=== PATIENT | female | born 1970 | race Caucasian/White ===

== ENCOUNTER → 2021-05-22 | Outpatient (CLI) | payer MEDICARE ==
[~2021-05-22] MED LIST: AZIT-21 PO; BSP5T PO; FLUO20CA25 PO; LAMO25TA4 PO; LEVO500T69 PO; NF-ESOM40C PO
== END ==
LOC: CARD 12:00
PROVIDERS: ATTEND Pediatrics
DX: R00.0 Tachycardia, unspecified (principal)
CPT/HCPCS: 93225; 93226

== ENCOUNTER 2021-07-21 10:05 | Observation (INO) | payer MEDICARE ==
[~2021-07-21] VITALS: Ht 165.1 cm; Wt 86.9 kg
[~2021-07-21 10:05] MED LIST changes: -ACHD5005 PO; -FLDR.1T PO; -GBPN600T PO; -NICO-685 TD; -ONDA-105 PO; -PARO40TA PO; -POTA10CA43 PO; -PROP80CA4 PO; -TIZA-186 PO; -TRAZ150T72 PO
--- NOTE | 2021-07-21 10:37 | ED General ---
General Chief Complaint: Head/Cervical Problems Stated Complaint: AMS Nursing Triage Note: ARRIVED VIA TO ER FROM CT. PT WAS SENT TO CT FROM [facility] DUE FREQUENT HEADACHES AND FELL COMING TO THE HOSPITAL. UPON CT ARRIVAL CT REPORTS PT CONFUSED ET STARTING SWEATING. CT COMPLETED. PT A/O X2-3 BUT AT TIMES DOES NOT MAKE SENSE. Source of Information: Patient Exam Limitations: No Limitations History of Present Illness Date Seen by Provider: Jul 21, 2021 Time Seen by Provider: 10:12 Initial Comments Patient is a 50-year-old female who presents to the emergency department from CAT scan. Patient was sent over for an outpatient CAT scan of the head reportedly due to frequent headaches and falls over recent weeks. Patient apparently states that she started feeling syncopal on arrival to the hospital. She states that she actually passed out. Reportedly very diaphoretic, she is diaphoretic on my initial evaluation. She is awake alert, oriented. She states that her speech is not quite right. She does seem to have somewhat of a slur. She is edentulous. She denies any recent fevers or chills. She states her headache is most of the time on the left side of her head. She states she has felt like she has had problems with balance and dizziness in recent weeks. She was recently started on a new medication for her mental health issues. She states she took her self off of it due to concerns about side effects. Reportedly the CT of the brain was done prior to arrival here in the ED. She denies any numbness, weakness or tingling in any of her extremities. She does have a mild headache and some back pain. She states her back pain/neck pain is chronic. No problems with urination, bowels. She is Covid vaccinated in November of this year. History of anemia. All other review of systems reviewed and negative except as stated. Timing/Duration: Getting Worse Severity: Moderate Associated Systoms: Headaches, Malaise, Syncope, Weakness Allergies and Home Medications Allergies Coded Allergies: No Known Drug Allergies (Unverified , 06/26/14) Patient Home Medication List Home Medication List Reviewed: Yes Esomeprazole Mag Trihydrate (Nexium) 40 Mg Capsule.dr, 40 MG PO DAILY, (Reported) Entered as Reported by: GERMAN CM on 06/25/14 6202 Last Action: Reviewed Gabapentin (Gabapentin) 600 Mg Tablet, 600 MG PO TID, (Reported) Entered as Reported by: BEAU ARCHER on 07/21/211817 Last Action: Reviewed Hydrocodone/Acetaminophen (Hydrocodone-Acetamin 5-325 mg) 1 Each Tablet, 1 TAB PO TID PRN for PAIN-MODERATE (5-7), (Reported) Entered as Reported by: BEAU ARCHER on 07/21/211817 Last Action: Continued Nicotine (Nicotine Patch) 1 Each Patch.td24, 21 MG TD DAILY, (Reported) Entered as Reported by: BEAU ARCHER on 07/21/211817 Last Action: Continued Ondansetron HCl (Ondansetron HCl) 4 Mg Tablet, 4 MG PO TID PRN for NAUSEA/VOMITING, (Reported) Entered as Reported by: BEAU ARCHER on 07/21/211817 Last Action: Reviewed Paroxetine HCl (Paxil) 40 Mg Tablet, 40 MG PO DAILY, (Reported) Entered as Reported by: BEAU ARCHER on 07/21/211817 Last Action: Reviewed Propranolol HCl (Propranolol HCl ER) 80 Mg Cap.sa.24h, 80 MG PO DAILY, (Reported) Entered as Reported by: BEAU ARCHER on 07/21/211817 Last Action: Reviewed Tizanidine HCl (Tizanidine HCl) 4 Mg Tablet, 4 MG PO TID, (Reported) Entered as Reported by: BEAU ARCHER on 07/21/211817 Last Action: Reviewed Trazodone HCl (Trazodone HCl) 150 Mg Tablet, 150 MG PO HS, (Reported) Entered as Reported by: BEAU ARCHER on 07/21/211817 Last Action: Continued Discontinued Medications Azithromycin (Zithromax Tab) 250 Mg Tab, 0 PO Z-ISAAC Discontinued Reason: No Longer Taking Prescribed by: CHERYL WHITNEY on 06/25/14 1448 Last Action: Discontinued Buspirone Hcl (Buspar) 5 Mg Tablet, Unknown Dose PO TID, (Reported) Discontinued Reason: No Longer Taking Entered as Reported by: MIKE MUNIZ on 06/26/14 1652 Last Action: Discontinued Fluoxetine Hcl (Fluoxetine Hcl) 20 Mg Capsule, 1 EACH PO DAILY, (Reported) Discontinued Reason: No Longer Taking Entered as Reported by: GERMAN CM on 06/25/141408 Last Action: Discontinued Lamotrigine (Lamictal) 25 Mg Tab.disper, 20 MG PO TID, (Reported) Discontinued Reason: No Longer Taking Entered as Reported by: GERMAN CM on 06/25/141408 Last Action: Discontinued Levofloxacin (Levaquin 500 Mg) 500 Mg Tab, 1 EACH PO DAILY Discontinued Reason: No Longer Taking Prescribed by: STACEY WEBSTER on 06/26/141955 Last Action: Discontinued Review of Systems Review of Systems Constitutional: see HPI EENTM: no symptoms reported Respiratory: no symptoms reported Cardiovascular: no symptoms reported Gastrointestinal: no symptoms reported Genitourinary: no symptoms reported : No Musculoskeletal: back pain, neck pain Skin: no symptoms reported Psychiatric/Neurological: Anxiety, Headache All Other Systems Reviewed Negative Unless Noted: Yes Past Dlqpfon-Ybxevr-Femybr Hx Patient Social History Smoking Status: Current Everyday Smoker Substance use?: No Alcohol Use?: No Immunizations Up To Date Second COVID19 Vaccination James: 11/30 COVID19 Vaccine Radiation Protection Specialist: PARRISH Seasonal Allergies Seasonal Allergies: Yes Past Medical History Section, Ear Surgery, 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 oz. 79.314504qe; 30.00 BMI Method:Stated General Appearance: No Apparent Distress, WD/WN Eyes: Bilateral Eye Normal Inspection, Bilateral Eye PERRL, Bilateral Eye EOMI, Bilateral Eye Conjunctivae Pale HEENT: PERRL/EOMI, Pharynx Normal, Other (pale oral mucosa; edentulous) Neck: Normal Inspection Respiratory: Lungs Clear, Normal Breath Sounds, No Accessory Muscle Use, No Respiratory Distress Cardiovascular: Regular Rate, Rhythm, Normal Peripheral Pulses Gastrointestinal: Normal Bowel Sounds, Non Tender, Soft Extremity: Normal Capillary Refill, Normal Inspection, Non Tender, No Calf Tenderness Neurologic/Psychiatric: Alert, Oriented x3, No Motor/Sensory Deficits, Normal Mood/Affect Skin: Diaphoresis, Pallor, Other (multiple healed scars (patient states from old staph infections) to bilateral upper extremities left greater than right) Focused Exam Lactate Level 07/21/21 13:45: Lactic Acid Level 1.08 Lactic Acid Level Laboratory Tests Test 07/21/21 13:45 Lactic Acid Level 1.08 MMOL/L (0.50-2.00) Progress/Results/Core Measures Suspected Sepsis SIRS Temperature: Pulse: 63 Respiratory Rate: 16 Laboratory Tests 07/21/21 10:15: White Blood Count 11.8H Blood Pressure 106 /87 Mean: 93 07/21/21 13:45: Lactic Acid Level 1.08 Laboratory Tests 07/21/21 10:15: Creatinine 1.59H, Platelet Count 352, Total Bilirubin 0.3 Results/Orders Lab Results Laboratory Tests Test 07/21/21 10:10 07/21/21 10:15 07/21/21 12:40 07/21/21 13:45 Range/Units Glucometer 111 H 70-110 MG/DL White Blood Count 11.8 H 4.3-11.0 10^3/uL Red Blood Count 4.02 3.80-5.11 10^6/uL Hemoglobin 12.2 11.5-16.0 g/dL Hematocrit 37 35-52 % Mean Corpuscular Volume 92 80-99 fL Mean Corpuscular Hemoglobin 30 25-34 pg Mean Corpuscular Hemoglobin Concent 33 32-36 g/dL Red Cell Distribution Width 13.4 10.0-14.5 % Platelet Count 352 130-400 10^3/uL Mean Platelet Volume 10.0 9.0-12.2 fL Immature Granulocyte % (Auto) 0 % Neutrophils (%) (Auto) 79 H 42-75 % Lymphocytes (%) (Auto) 16 12-44 % Monocytes (%) (Auto) 4 0-12 % Eosinophils (%) (Auto) 1 0-10 % Basophils (%) (Auto) 0 0-10 % Neutrophils # (Auto) 9.2 H 1.8-7.8 10^3/uL Lymphocytes # (Auto) 1.9 1.0-4.0 10^3/uL Monocytes # (Auto) 0.5 0.0-1.0 10^3/uL Eosinophils # (Auto) 0.1 0.0-0.3 10^3/uL Basophils # (Auto) 0.0 0.0-0.1 10^3/uL Immature Granulocyte # (Auto) 0.1 0.0-0.1 10^3/uL Sodium Level 134 L 135-145 MMOL/L Potassium Level 3.4 L 3.6-5.0 MMOL/L Chloride Level 99 98-107 MMOL/L Carbon Dioxide Level 21 21-32 MMOL/L Anion Gap 14 5-14 MMOL/L Blood Urea Nitrogen 7 7-18 MG/DL Creatinine 1.59 H 0.60-1.30 MG/DL Estimat Glomerular Filtration Rate 34 BUN/Creatinine Ratio 4 Glucose Level 112 H 70-105 MG/DL Calcium Level 9.5 8.5-10.1 MG/DL Corrected Calcium 9.9 8.5-10.1 MG/DL Total Bilirubin 0.3 0.1-1.0 MG/DL Aspartate Amino Transf (AST/SGOT) 15 5-34 U/L Alanine Aminotransferase (ALT/SGPT) 15 0-55 U/L Alkaline Phosphatase 78 40-136 U/L Total Protein 6.8 6.4-8.2 GM/DL Albumin 3.5 3.2-4.5 GM/DL Salicylates Level < 5.0 L 5.0-20.0 MG/DL Acetaminophen Level 22 10-30 UG/ML Serum Alcohol < 10 <10 MG/DL Urine Opiates Screen NEGATIVE NEGATIVE Urine Oxycodone Screen NEGATIVE NEGATIVE Urine Methadone Screen NEGATIVE NEGATIVE Urine Propoxyphene Screen NEGATIVE NEGATIVE Urine Barbiturates Screen NEGATIVE NEGATIVE Ur Tricyclic Antidepressants Screen NEGATIVE NEGATIVE Urine Phencyclidine Screen NEGATIVE NEGATIVE Urine Amphetamines Screen NEGATIVE NEGATIVE Urine Methamphetamines Screen NEGATIVE NEGATIVE Urine Benzodiazepines Screen POSITIVE H NEGATIVE Urine Cocaine Screen NEGATIVE NEGATIVE Urine Cannabinoids Screen NEGATIVE NEGATIVE Lactic Acid Level 1.08 0.50-2.00 MMOL/L My Orders Orders - JOY SAN MD Ed Iv/Invasive Line Start (07/21/21 10:34) Cbc With Automated Diff (07/21/21 10:34) Comprehensive Metabolic Panel (07/21/21 10:34) Ua Culture If Indicated (07/21/21 10:34) Alcohol (07/21/21 10:34) Salicylate (07/21/21 10:34) Acetaminophen (07/21/21 10:34) Ns Iv 1000 Ml (Sodium Chloride 0.9%) (07/21/21 10:45) Ed Iv/Invasive Line Start (07/21/21 11:13) Ns Iv 1000 Ml (Sodium Chloride 0.9%) (07/21/21 11:15) Hydrocodone/Apap 5/325 Tablet (Lortab 5 (07/21/21 12:30) Ns Iv 1000 Ml (Sodium Chloride 0.9%) (07/21/21 12:30) Drug Screen Stat (Urine) (07/21/21 12:40) Lactic Acid Analyzer (07/21/21 13:20) Chest 1 View, Ap/Pa Only (07/21/21 13:20) Medications Given in ED Vital Signs/I&O 07/21/21 07/21/21 07/21/21 10:05 12:56 14:16 Temp 36.3 Pulse 63 62 65 Resp 16 B/P (MAP) 106/87 (93) 85/54 (64) 86/50 (62) 73/43 (53) Pulse Ox 96 O2 Delivery Room Air Capillary Refill : Less Than 3 Seconds Blood Pressure Mean: 93 Point of Care Testing Finger Stick Blood Glucose: 111 Progress Note #1: Time: 11:16 Progress Note Notified by ED nurse, Sahara that the patient's blood pressure continues to be low in the 80s systolic. I was able to review the CT read per radiology on her head CT. No acute intracranial process was identified. Patient is not anemic at this time, chemistry looks normal. She does have a marginally elevated acetaminophen level at 22 otherwise alcohol and salicylates are negative. We are going to go ahead and give her a second liter of IV fluids. Progress Note #2: Time: 12:23 Progress Note Blood pressure is much better after first liter of fluids. I am going to go ahead and give her a second as her renal function is quite depressed today indicating potentially some volume depletion. She has not produced urine yet but states that she thinks she can now. We will give her some hydrocodone as she says she takes that for her chronic pain. Cannot give her Toradol secondary to the renal function. No evidence of an infectious process at this point. Anticipate after the second liter that we can likely send her home to follow-up with [facility]. Progress Note #3: Time: 13:20 Progress Note discussed with Dr aguilar who states that the patient is very compliant with her therapies. She does reiterate that she had recently started her on Rexulti but the patient could not tolerate the side effects and therefore she quit taking it about 2 weeks ago. She tells me that normally on visits to the clinic her heart rate is in the 90s with blood pressures in the 120s. We reviewed prescriptions for benzodiazepines. She had a prescription in November for some Xanax, 8 tablets. The patient states that she does not have any currently and has not taken any. She also tells me that she takes her daily propranolol as prescribed and has not taken any extra. In January of this year her creatinine was 1.19 with a GFR of [address] Aguilar. She is quite concerned about her ability to care for herself and they have been trying to get her some home health recently. She is quite "simple". Will add a chest x-ray as well as a lactic acid. As the patient is laying on her right side on her right arm her systolic blood pressure is 116. Plan to finish these fluids and then stand her and repeat blood pressure. Progress Note #4: Time: 14:17 Progress Note Patient has received 2L of IVF, standing BP is still 73/43. Gets very symptommatic, sweaty, pale and weak. Will call Dr Sullivan for admit. ECG Initial ECG Impression Date: Jul 21, 2021 Initial ECG Impression Time: 10:07 Initial ECG Rate: 64 Initial ECG Rhythm: Normal Sinus Initial ECG Intervals NE 142 QRS 85 QTc 512 Initial ECG Impression: Normal Diagnostic Imaging Diagonstic Imaging: CT Comments [facility] [place], [place] NAME: MIAH HERNANDEZ [facility] REC#: [id number] PT STATUS: REG CLI : 1970 PHYSICIAN: CATRACHITA AGUILAR DO ADMIT DATE: 07/21/21/RAD Draft Date of Exam:07/21/21 CT HEAD WO PROCEDURE: CT head without contrast. TECHNIQUE: Multiple contiguous axial images were obtained through the brain without the use of intravenous contrast. Auto Exposure Controls were utilized during the CT exam to meet ALARA standards for radiation dose reduction. INDICATION: Headache and dizziness. No prior studies are available for comparison. FINDINGS: Ventricles and sulci are within normal limits. No sulcal effacement or midline shift is identified. No acute intra-axial or extra-axial hemorrhage is detected. Cisterns are patent. Visualized paranasal sinuses are clear. IMPRESSION: No acute intracranial process is detected. Dictated on workstation # [id number] Dict: 07/21/21 1008 Trans: 07/21/21 1013 [id number] Interpreted by: LAURA MOCTEZUMA MD Electronically signed by: Departure Communication (Admissions) Time/Spoke to Admitting Phy: 14:[address] Davis Impression Primary Impression: Symptomatic hypotension Additional Impression: Acute kidney injury Disposition: ADMITTED INPATIENT Condition: Stable Admissions Decision to Admit Reason: Admit from ER (General) Decision to Admit/Date: Jul 21, 2021 Time/Decision to Admit Time: 14:21 Departure-Patient Inst. Referrals: [facility] [place] Primary Care Physician JOY SAN MD Jul 21, 2021 10:37
[2021-07-21 10:42] LABS: BASOPHILS % (AUTO) 0 % (0-10); EOSINOPHILS # (AUTO) 0.1 10^3/uL (0.0-0.3); EOSINOPHILS % (AUTO) 1 % (0-10); HEMATOCRIT 37 % (35-52); HEMOGLOBIN 12.2 g/dL (11.5-16.0); LYMPHOCYTES # (AUTO) 1.9 10^3/uL (1.0-4.0); LYMPHOCYTES % (AUTO) 16 % (12-44); MEAN CORPUSCULAR HEMOGLOBIN 30 pg (25-34); MEAN CORPUSCULAR HGB CONC 33 g/dL (32-36); MEAN CORPUSCULAR VOLUME 92 fL (80-99); MONOCYTES # (AUTO) 0.5 10^3/uL (0.0-1.0); MONOCYTES % (AUTO) 4 % (0-12); NEUTROPHILS # (AUTO) 9.2 10^3/uL (1.8-7.8); NEUTROPHILS % (AUTO) 79 % (42-75); PLATELET COUNT 352 10^3/uL (130-400); WHITE BLOOD COUNT 11.8 10^3/uL (4.3-11.0)
[2021-07-21] MEDS ORDERED: NS IV 1000 ML 1,000 ML IV SCH ×3 (10:45→12:30)
[2021-07-21 10:46] LABS: CHLORIDE 99 MMOL/L (98-107); POTASSIUM 3.4 MMOL/L (3.6-5.0); SODIUM 134 MMOL/L (135-145)
[2021-07-21 10:47] LABS: ALBUMIN 3.5 GM/DL (3.2-4.5)
[2021-07-21 10:48] LABS: CALCIUM 9.5 MG/DL (8.5-10.1)
[2021-07-21 10:49] LABS: GLUCOSE 112 MG/DL (70-105); TOTAL PROTEIN 6.8 GM/DL (6.4-8.2)
[2021-07-21 10:50] LABS: CARBON DIOXIDE 21 MMOL/L (21-32)
[2021-07-21 10:51] LABS: BILIRUBIN,TOTAL 0.3 MG/DL (0.1-1.0)
[2021-07-21 10:53] LABS: ALKALINE PHOSPHATASE 78 U/L (40-136); CREATININE SERUM 1.59 MG/DL (0.60-1.30); GFR ESTIMATED 34
[2021-07-21 10:54] LABS: ACETAMINOPHEN 22 UG/ML (10-30); BUN/CREATININE RATIO 4
[2021-07-21 10:56] LABS: ALANINE AMINOTRANSFERASE 15 U/L (0-55); SALICYLATE < 5.0 MG/DL (5.0-20.0)
[2021-07-21] MEDS ORDERED: HYDROcodone/APAP 5 MG/325 MG (LORTAB) TAB PO ONE (12:30)
[2021-07-21 12:56] VITALS: BP_SYST 85; BP_SYST 86; BP_DIAS 50; BP_DIAS 54
[2021-07-21 13:09] LABS: AMPHETAMINE SCREEN, URINE NEGATIVE (NEGATIVE); BARBITURATE SCREEN URINE NEGATIVE (NEGATIVE); BENZODIAZEPINES SCREEN URINE POSITIVE (NEGATIVE); CANNABINOID SCREEN, URINE NEGATIVE (NEGATIVE); COCAINE SCREEN URINE NEGATIVE (NEGATIVE); METHADONE STAT NEGATIVE (NEGATIVE); METHAMPHETAMINE SCREEN URINE S NEGATIVE (NEGATIVE); OPIATE SCREEN URINE NEGATIVE (NEGATIVE); OXYCODONE STAT NEGATIVE (NEGATIVE); PROPOXYPHENE STAT NEGATIVE (NEGATIVE); TRICYCLIC ANTIDEPRESSANTS SCRE NEGATIVE (NEGATIVE)
--- NOTE | 2021-07-21 14:04 | Diagnostic Imaging Report ---
INDICATION: Confusion. Single AP view of the chest is obtained. COMPARISON: 06/26/2014. FINDINGS: Heart size and pulmonary vascularity are within normal limits, and the lungs are clear, bilaterally. IMPRESSION: Unremarkable chest. Dictated by: Dictated on workstation # [id number]
[2021-07-21 14:16] VITALS: BP 73/43
[2021-07-21] MEDS ORDERED: CATHETER FLUSH 10 ML SYR IV PRN (16:00)
[2021-07-21 16:45] VITALS: BP 100/65
[2021-07-21] MEDS: NS IV 1000 ML 1,000 ML IV SCH (18:10)
[2021-07-21] MEDS ORDERED: TIZA-186 PO (18:18)
[2021-07-21] MEDS ORDERED: PROP80CA4 PO (18:18)
[2021-07-21] MEDS ORDERED: TRAZ150T72 PO (18:18)
[2021-07-21] MEDS ORDERED: PARO40TA PO (18:18)
[2021-07-21] MEDS ORDERED: ONDA-105 PO (18:18)
[2021-07-21] MEDS ORDERED: GBPN600T PO (18:18)
[2021-07-21] MEDS ORDERED: NICO-685 TD (18:18)
[2021-07-21] MEDS ORDERED: ACHD5005 PO (18:18)
[2021-07-21 19:41] LABS: BILIRUBIN,URINE NEGATIVE (NEGATIVE); CLARITY,URINE CLEAR; COLOR,URINE YELLOW; GLUCOSE, URINE (UA) NEGATIVE (NEGATIVE); KETONES,URINE NEGATIVE (NEGATIVE); LEUKOCYTE ESTERASE ,URINE TRACE (NEGATIVE); NITRITE,URINE NEGATIVE (NEGATIVE); PROTEIN,URINE TRACE (NEGATIVE)
[2021-07-21 19:51] LABS: BACTERIA,URINE NEGATIVE /HPF; SQUAMOUS EPITHELIAL CELL,UR 0-2 /HPF
[2021-07-21 20:05] VITALS: BP 97/62
[2021-07-21] MEDS ORDERED: HYDROcodone/APAP 5 MG/325 MG (LORTAB) TAB PO PRN (21:30)
[2021-07-21] MEDS ORDERED: traZODone 150 MG (DESYREL) TABLET PO SCH (22:00)
[2021-07-21 23:09] VITALS: BP 98/65
[2021-07-22] MEDS: NS IV 1000 ML 1,000 ML IV SCH (01:12)
[2021-07-22 04:00] VITALS: BP 95/68
[2021-07-22 06:17] LABS: POTASSIUM 3.3 MMOL/L (3.6-5.0)
[2021-07-22 06:18] LABS: CALCIUM 8.2 MG/DL (8.5-10.1)
[2021-07-22 06:22] LABS: CREATININE SERUM 1.15 MG/DL (0.60-1.30)
[2021-07-22 07:49] VITALS: BP 117/74
[2021-07-22] MEDS ORDERED: NICOTINE 21 MG (NICODERM) PATCH TD SCH (09:00)
--- NOTE | 2021-07-22 10:32 | Short Stay Summary-Hospitalist ---
History of Present Illness HPI/Chief Complaint Patient is a 50-year-old female who presents to the emergency department from CAT scan. Patient was sent over for an outpatient CAT scan of the head reportedly due to frequent headaches and falls over recent weeks. Patient apparently states that she started feeling syncopal on arrival to the hospital. She states that she actually passed out. Reportedly very diaphoretic, she is diaphoretic on my initial evaluation. She is awake alert, oriented. She states that her speech is not quite right. She does seem to have somewhat of a slur. She is edentulous. She denies any recent fevers or chills. She states her headache is most of the time on the left side of her head. She states she has felt like she has had problems with balance and dizziness in recent weeks. She was recently started on a new medication for her mental health issues. She states she took her self off of it due to concerns about side effects. Reportedly the CT of the brain was done prior to arrival here in the ED. She denies any numbness, weakness or tingling in any of her extremities. She does have a mild headache and some back pain. She states her back pain/neck pain is chronic. No problems with urination, bowels. She is Covid vaccinated in November of this year. History of anemia Upon my arrival the patient where she is feeling well she had been up to the bedside commode without any lightheadedness and had breakfast without nausea felt like she is about back to baseline. She again reported that she had been taking her medication as prescribed and does not know how she tested positive for benzodiazepine. Drug study was otherwise negative. She had been off of Rexulti a new medication for about 10 days that she was not tolerating and had read that it could be in her system for up to 2 weeks and feels that this was the likely cause of dehydration and syncope. She reports that she had had a previous history of syncope but it been several years. She has no history of cardiac arrhythmia or any cardiac problems and thinks that her work-up for previous syncope was unremarkable. There is no known history for seizure disorder. Date Seen 07/22/21 Time Seen by a Provider: 10:00 Attending Physician Miki Davis MD [facility] Referring Physician Date of Admission Jul 21, 2021 at 14:35 Home Medications & Allergies Home Medications Reviewed patient Home Medication Reconciliation performed by pharmacy medication reconciliations neurology technician and/or nursing. Patients Allergies have been reviewed. Allergies Allergies Coded Allergies No Known Drug Allergies (Mozdbdudre03/15/14) Past Hewxjox-Xudbzy-Ohfpqh Hx Patient Social History Tobacco Use?: Yes Tobacco type used: Cigarettes Smoking Status: Current Everyday Smoker Use of E-Cig and/or Vaping dev: Yes E-Cig or Vaping type used: Nicotine Use of E-Cig and/or Vaping Be: Light User Substance use?: No Alcohol Use?: Yes Alcohol type: Beer, Wine Alcohol Frequency: Rarely Pt feels they are or have been: No Immunizations Up To Date Date of Influenza Vaccine: Jun 28, 2021 First/Initial COVID19 Vaccinat: November 12, 2020 Second COVID19 Vaccination James: November 26, 2020 Seasonal Allergies Seasonal Allergies: Yes Current Status status: No Advance Directives: No Communicates: Verbally Primary Language: Anguill[place] Preferred Spoken Language: [place]guill[place] Sensory deficits: Hearing impairment Implanted or Applied Medical D: Orthopedic hardware Past Medical History Surgeries: Section, Ear Surgery, 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 oz. 79.503265vh; 32.02 BMI Method:Stated General Appearance: No Apparent Distress, WD/WN Eyes: Bilateral Eye Normal Inspection, Bilateral Eye PERRL, Bilateral Eye EOMI, Bilateral Eye Conjunctivae Pale HEENT: PERRL/EOMI, Pharynx Normal, Other (pale oral mucosa; edentulous) Neck: Normal Inspection Respiratory: Lungs Clear, Normal Breath Sounds, No Accessory Muscle Use, No Respiratory Distress Cardiovascular: Regular Rate, Rhythm, Normal Peripheral Pulses Gastrointestinal: Normal Bowel Sounds, Non Tender, Soft Extremity: Normal Capillary Refill, Normal Inspection, Non Tender, No Calf Tenderness Neurologic/Psychiatric: Alert, Oriented x3, No Motor/Sensory Deficits, Normal Mood/Affect Skin: Diaphoresis, Pallor, Other (multiple healed scars (patient states from old staph infections) to bilateral upper extremities left greater than right) Results Results/Procedures Labs Laboratory Tests 07/21/21 10:15 07/22/21 05:27 Patient resulted labs reviewed. Short Stay Diagnosis Discharge Diagnosis-Short Stay Admission Diagnosis 1. Orthostatic hypotension secondary dehydration possibly due to medication specifically Rexulti side effect. Final Discharge Diagnosis Same as admission diagnosis Conclusion Plan IV fluids were initiated and and her propranolol was held. This is not likely the cause of her symptoms as she did not have significant bradycardia but may be aggravating ability to compensate for dehydration. IV fluids were given overnight with normalization of blood pressure. Renal function returned to normal. As long as orthostatic blood pressures are reasonable this morning the patient will be discharged on her home medications minus the Rexulti that had already been discontinued about 10 days ago and she will hold propranolol continuing her other medications unchanged. Copy Copies To 1: [facility]/MIKI DURANT MD Jul 22, 2021 10:32
[2021-07-22 11:56] VITALS: BP 128/82
== END 2021-07-22 13:12 | disposition home or self-care (01) ==
LOC: EDUNIT# 10:05 → ER 10:06 → 4TH 14:35
PROVIDERS: ADMIT Internal Medicine; ATTEND Internal Medicine
DX: I95.1 Orthostatic hypotension (principal); E86.0 Dehydration; R51.9 Headache, unspecified; R29.6 Repeated falls; K21.9 Gastro-esophageal reflux disease without esophagitis; I45.81 Long QT syndrome; J44.9 Chronic obstructive pulmonary disease, unspecified; J30.2 Other seasonal allergic rhinitis; N39.0 Urinary tract infection, site not specified; D64.9 Anemia, unspecified; N17.9 Acute kidney failure, unspecified; F17.210 Nicotine dependence, cigarettes, uncomplicated; Z79.899 Other long term (current) drug therapy; Z79.891 Long term (current) use of opiate analgesic
CPT/HCPCS: 71045; 80048; 80053; 80306; 81000; 82947; 83605; 85025; 93005; 96360; 99284; G0378; G0480 ×3; 36415; 80320; 80329

== ENCOUNTER → 2021-07-21 | Outpatient (CLI) | payer MEDICARE ==
[~2021-07-21] MED LIST changes: +ACHD5005 PO; +FLDR.1T PO; +GBPN600T PO; +NICO-685 TD; +ONDA-105 PO; +PARO40TA PO; +POTA10CA43 PO; +PROP80CA4 PO; +TIZA-186 PO; +TRAZ150T72 PO
--- NOTE | 2021-07-21 10:14 | Diagnostic Imaging Report ---
PROCEDURE: CT head without contrast. TECHNIQUE: Multiple contiguous axial images were obtained through the brain without the use of intravenous contrast. Auto Exposure Controls were utilized during the CT exam to meet ALARA standards for radiation dose reduction. INDICATION: Headache and dizziness. No prior studies are available for comparison. FINDINGS: Ventricles and sulci are within normal limits. No sulcal effacement or midline shift is identified. No acute intra-axial or extra-axial hemorrhage is detected. Cisterns are patent. Visualized paranasal sinuses are clear. IMPRESSION: No acute intracranial process is detected. Dictated by: Dictated on workstation # [id number]
== END ==
LOC: RAD 09:45
PROVIDERS: ATTEND Pediatrics
DX: G44.52 New daily persistent headache (NDPH) (principal); R42 Dizziness and giddiness
CPT/HCPCS: 70450

== ENCOUNTER 2021-07-26 12:18 | Emergency (ER) | payer MEDICARE ==
[~2021-07-26] VITALS: Ht 165 cm; Wt 81.8 kg
[~2021-07-26 12:18] MED LIST changes: +ACHD5005 PO; +GBPN600T PO; +NICO-685 TD; +ONDA-105 PO; +PARO40TA PO; +PROP80CA4 PO; +TIZA-186 PO; +TRAZ150T72 PO
[2021-07-26] MEDS ORDERED: LACTATED RINGERS 1,000 ML IV SCH (12:45)
[2021-07-26 12:51] LABS: BASOPHILS % (AUTO) 1 % (0-10); EOSINOPHILS # (AUTO) 0.1 10^3/uL (0.0-0.3); EOSINOPHILS % (AUTO) 1 % (0-10); HEMATOCRIT 37 % (35-52); HEMOGLOBIN 12.2 g/dL (11.5-16.0); LYMPHOCYTES # (AUTO) 2.1 10^3/uL (1.0-4.0); LYMPHOCYTES % (AUTO) 25 % (12-44); MEAN CORPUSCULAR HEMOGLOBIN 31 pg (25-34); MEAN CORPUSCULAR HGB CONC 33 g/dL (32-36); MEAN CORPUSCULAR VOLUME 93 fL (80-99); MEAN PLATELET VOLUME 9.6 fL (9.0-12.2); MONOCYTES # (AUTO) 0.4 10^3/uL (0.0-1.0); MONOCYTES % (AUTO) 4 % (0-12); NEUTROPHILS # (AUTO) 6.1 10^3/uL (1.8-7.8); NEUTROPHILS % (AUTO) 70 % (42-75); PLATELET COUNT 343 10^3/uL (130-400); WHITE BLOOD COUNT 8.8 10^3/uL (4.3-11.0)
--- NOTE | 2021-07-26 13:05 | ED General ---
General Chief Complaint: General Problems/Pain Stated Complaint: WEAKNESS Nursing Triage Note: 1218TO ED PER EMS FROM [facility] WHERE SHE WAS HAVING A FOLLOW UP APPOINTMENT WAS WALKING AND AND WENT DOWN. DID NOT PASS OUT. WAS DISCHARGE ON ON JUL 22 WITH SAME PROBLEM. WAS TOLD TO STOP TAKING PROPRANOLO PATIENT THEREW IT AWAY. ON WAY TO HOSPITAL EMS FOUND B/P SYSTOLIC TO BE IN THE 60'S ON ADMIT FLUIDS'S INFUSING SYSTOLIC IN THE 100'S 1222 SYSTOLIC B/P NOW IN 77 PLAN TO START 2ND LINE BY ANGELA. Source of Information: Patient, EMS Exam Limitations: No Limitations History of Present Illness Date Seen by Provider: Jul 26, 2021 Time Seen by Provider: 12:15 Initial Comments To ER by EMS from [facility] where she collapsed. They report that this was a routine follow-up visit from her recent hospitalization. She was here from 07/21/2021 to 07/22/2021 for hypotension believed to be dehydration. They thought it might be related to the propranolol that she was taking for her headaches so she was advised to stop it and threw it away. She has not been using it. Today at her routine follow-up she collapsed in the hallway. There was no loss of consciousness and she did not hit her head. She reports that she lives alone and probably does not drink enough fluids. Her mouth does appear very dry. She denies any fevers or chills. She has some chronic back pain that is bothering her and she rates that pain in her back down her legs at 7 out of 10. EMS initiated an IV, started normal saline. Blood pressure on their arrival was in the 70s systolic as it was here upon her arrival to the emergency room. Timing/Duration: 1-2 Days Severity: Moderate Associated Systoms: Denies Symptoms Allergies and Home Medications Allergies Coded Allergies: No Known Drug Allergies (Unverified , 06/26/14) Patient Home Medication List Home Medication List Reviewed: Yes Esomeprazole Mag Trihydrate (Nexium) 40 Mg Capsule.dr, 40 MG PO DAILY, (Reported) Entered as Reported by: GERMAN CM on 06/25/14 1409 Fludrocortisone Acetate (Fludrocortisone Acetate) 0.1 Mg Tab, 0.1 MG PO DAILY Prescribed by: CHERYL WHITNEY on 07/26/21 1530 Gabapentin (Gabapentin) 600 Mg Tablet, 600 MG PO TID, (Reported) Entered as Reported by: BEAU ARCHER on 07/21/211817 Hydrocodone/Acetaminophen (Hydrocodone-Acetamin 5-325 mg) 1 Each Tablet, 1 TAB PO TID PRN for PAIN-MODERATE (5-7), (Reported) Entered as Reported by: BEAU ARCHER on 07/21/211817 Nicotine (Nicotine Patch) 1 Each Patch.td24, 21 MG TD DAILY, (Reported) Entered as Reported by: BEAU ARCHER on 07/21/211817 Ondansetron HCl (Ondansetron HCl) 4 Mg Tablet, 4 MG PO TID PRN for NAUSEA /VOMITING, (Reported) Entered as Reported by: BEAU ARCHER on 07/21/211817 Paroxetine HCl (Paxil) 40 Mg Tablet, 40 MG PO DAILY, (Reported) Entered as Reported by: BEAU ARCHER on 07/21/211817 Potassium Chloride (Potassium Chloride) 10 Meq Capsule.er, 10 MEQ PO DAILY Prescribed by: CHERYL WHITNEY on 07/26/21 1530 Tizanidine HCl (Tizanidine HCl) 4 Mg Tablet, 4 MG PO TID, (Reported) Entered as Reported by: BEAU ARCHER on 07/21/211817 Trazodone HCl (Trazodone HCl) 150 Mg Tablet, 150 MG PO HS, (Reported) Entered as Reported by: BEAU ARCHER on 07/21/211817 Discontinued Medications Azithromycin (Zithromax Tab) 250 Mg Tab, 0 PO Z-ISAAC Discontinued Reason: No Longer Taking Prescribed by: CHERYL WHITNEY on 06/25/14 1448 Buspirone Hcl (Buspar) 5 Mg Tablet, Unknown Dose PO TID, (Reported) Discontinued Reason: No Longer Taking Entered as Reported by: MIKE MUNIZ on 06/26/14 1652 Fluoxetine Hcl (Fluoxetine Hcl) 20 Mg Capsule, 1 EACH PO DAILY, (Reported) Discontinued Reason: No Longer Taking Entered as Reported by: GERMAN CM on 06/25/14 140 Lamotrigine (Lamictal) 25 Mg Tab.disper, 20 MG PO TID, (Reported) Discontinued Reason: No Longer Taking Entered as Reported by: GERMAN CM on 06/25/14 1409 Levofloxacin (Levaquin 500 Mg) 500 Mg Tab, 1 EACH PO DAILY Discontinued Reason: No Longer Taking Prescribed by: STACEY WEBSTER on 06/26/141955 Propranolol HCl (Propranolol HCl ER) 80 Mg Cap.sa.24h, 80 MG PO DAILY, (Reported) Entered as Reported by: BEAU ARCHER on 07/21/21 1818 Review of Systems Review of Systems Constitutional: see HPI EENTM: see HPI Respiratory: no symptoms reported Cardiovascular: no symptoms reported Genitourinary: no symptoms reported Musculoskeletal: no symptoms reported Skin: no symptoms reported Psychiatric/Neurological: No Symptoms Reported Hematologic/Lymphatic: No Symptoms Reported Immunological/Allergic: no symptoms reported Past Fyisfoa-Acbpse-Pspulj Hx Immunizations Up To Date First/Initial COVID19 Vaccinat: November 12, 2020 Second COVID19 Vaccination James: November 26, 2020 Seasonal Allergies Seasonal Allergies: Yes Past Medical History Surgery/Hospitalization HX: None Section, Ear Surgery, Gallbladder Asthma, COPD [employer] History: Menopausal Kidney Infection, UTI-Chronic Gastroesophageal Reflux Hearing Impairment: Hard of Hearing, Bilateral Hearing Aide Physical Exam Vital Signs Vital Signs - First Documented 07/26/21 12:36 Temp 36.0 Pulse 64 Resp 18 B/P (MAP) 111/93 (99) Pulse Ox 95 O2 Delivery Room Air Capillary Refill : Less Than 3 Seconds Height, Weight, BMI Height: 5'5" Weight: 175lbs. oz. 79.335451cv; 30.00 BMI Method:Stated General Appearance: No Apparent Distress, WD/WN, Other (Hard of hearing. Alert and oriented mentating well. Very pleasant. Second IV was established for additional IV fluids. Fentanyl given for her back pain.) Eyes: Bilateral Eye Normal Inspection, Bilateral Eye PERRL, Bilateral Eye EOMI Respiratory: No Accessory Muscle Use, No Respiratory Distress Cardiovascular: Regular Rate, Rhythm, Normal Peripheral Pulses Gastrointestinal: Normal Bowel Sounds, Non Tender, Soft Extremity: Normal Capillary Refill, Normal Inspection Neurologic/Psychiatric: Alert, Oriented x3 Skin: Normal Color, Warm/Dry Progress/Results/Core Measures Suspected Sepsis SIRS Temperature: Pulse: 64 Respiratory Rate: 18 Laboratory Tests 07/26/21 12:45: White Blood Count 8.8 Blood Pressure 111 /93 Mean: 99 Laboratory Tests 07/26/21 12:45: Creatinine 1.24, Platelet Count 343, Total Bilirubin 0.3 Results/Orders Lab Results Laboratory Tests Test 07/26/21 12:45 07/26/21 14:37 Range/Units White Blood Count 8.8 4.3-11.0 10^3/uL Red Blood Count 4.00 3.80-5.11 10^6/uL Hemoglobin 12.2 11.5-16.0 g/dL Hematocrit 37 35-52 % Mean Corpuscular Volume 93 80-99 fL Mean Corpuscular Hemoglobin 31 25-34 pg Mean Corpuscular Hemoglobin Concent 33 32-36 g/dL Red Cell Distribution Width 13.6 10.0-14.5 % Platelet Count 343 130-400 10^3/uL Mean Platelet Volume 9.6 9.0-12.2 fL Immature Granulocyte % (Auto) 0 % Neutrophils (%) (Auto) 70 42-75 % Lymphocytes (%) (Auto) 25 12-44 % Monocytes (%) (Auto) 4 0-12 % Eosinophils (%) (Auto) 1 0-10 % Basophils (%) (Auto) 1 0-10 % Neutrophils # (Auto) 6.1 1.8-7.8 10^3/uL Lymphocytes # (Auto) 2.1 1.0-4.0 10^3/uL Monocytes # (Auto) 0.4 0.0-1.0 10^3/uL Eosinophils # (Auto) 0.1 0.0-0.3 10^3/uL Basophils # (Auto) 0.0 0.0-0.1 10^3/uL Immature Granulocyte # (Auto) 0.0 0.0-0.1 10^3/uL Sodium Level 140 135-145 MMOL/L Potassium Level 3.2 L 3.6-5.0 MMOL/L Chloride Level 109 H 98-107 MMOL/L Carbon Dioxide Level 21 21-32 MMOL/L Anion Gap 10 5-14 MMOL/L Blood Urea Nitrogen 4 L 7-18 MG/DL Creatinine 1.24 0.60-1.30 MG/DL Estimat Glomerular Filtration Rate 46 BUN/Creatinine Ratio 3 Glucose Level 94 70-105 MG/DL Calcium Level 8.5 8.5-10.1 MG/DL Corrected Calcium 9.1 8.5-10.1 MG/DL Total Bilirubin 0.3 0.1-1.0 MG/DL Aspartate Amino Transf (AST/SGOT) 11 5-34 U/L Alanine Aminotransferase (ALT/SGPT) 8 0-55 U/L Alkaline Phosphatase 77 40-136 U/L Total Protein 6.4 6.4-8.2 GM/DL Albumin 3.3 3.2-4.5 GM/DL Urine Color YELLOW Urine Clarity CLEAR Urine pH 6.5 5-9 Urine Specific [place] <=1.005 1.016-1.022 Urine Protein NEGATIVE NEGATIVE Urine Glucose (UA) NEGATIVE NEGATIVE Urine Ketones NEGATIVE NEGATIVE Urine Nitrite NEGATIVE NEGATIVE Urine Bilirubin NEGATIVE NEGATIVE Urine Urobilinogen 0.2 < = 1.0 MG/DL Urine Leukocyte Esterase NEGATIVE NEGATIVE Urine RBC (Auto) 3+ H NEGATIVE Urine RBC 2-5 H /HPF Urine WBC RARE /HPF Urine Squamous Epithelial Cells 0-2 /HPF Urine Crystals NONE /LPF Urine Bacteria NEGATIVE /HPF Urine Casts NONE /LPF Urine Mucus NEGATIVE /LPF Urine Culture Indicated NO My Orders Orders - CHERYL WHITNEY APRN Cbc With Automated Diff (07/26/21 12:32) Comprehensive Metabolic Panel (07/26/21 12:32) Ed Iv/Invasive Line Start (07/26/21 12:32) Ua Culture If Indicated (07/26/21 12:32) Lactated Ringers (Lr 1000 Ml Iv Solution (07/26/21 12:45) Fentanyl Inj (Sublimaze Injection) (07/26/21 13:30) Ed Iv/Invasive Line Start (07/26/21 13:31) Ns Iv 1000 Ml (Sodium Chloride 0.9%) (07/26/21 14:45) General/Regular (07/26/21 Lunch) Medications Given in ED Current Medications Medications Dose Ordered Sig/Efren Route Start Time Stop Time Status Last Admin Dose Admin Fentanyl Citrate 50 mcg ONCE ONCE IVP 07/26/21 13:30 07/26/21 13:31 DC 07/26/21 13:37 50 MCG Vital Signs/I&O 07/26/21 07/26/21 07/26/21 12:36 14:29 15:23 Temp 36.0 Pulse 64 54 53 56 67 70 62 Resp 18 B/P (MAP) 111/93 (99) 105/62 (76) 143/84 (103) 104/65 (78) 124/65 (84) 77/37 (50) 125/66 (85) Pulse Ox 95 O2 Delivery Room Air Capillary Refill : Less Than 3 Seconds Blood Pressure Mean: 99 Departure Communication (Admissions) 1435-orthostatic vital signs checked. Her blood pressure lying was 112 systolic, upon standing it fell to 77/37. This is after 2 L of IV fluids. 1527-she has received nearly a third 3 L of normal saline (still infusing). Her blood pressure has risen to 144 supine. It falls still upon standing but only to 125 systolic. The difference of 19 points. She will need to follow-up with primary care. I will start her on Florinef in the meantime until she is otherwise directed by Dr. Aguilar since this has been a recurrent issue for her. She is already scheduled to see Dr. Aguilar this Saturday at noon for hospital follow-up. Impression Primary Impression: Orthostatic hypotension Disposition: HOME, SELF-CARE Condition: Improved Departure-Patient Inst. Decision time for Depature: 15:28 Referrals: [facility] [place] (PCP/Family) Primary Care Physician Add. Discharge Instructions: 1. Medication as directed 2. Follow-up with [facility] on Saturday for recheck. Call today for an appointment time. All discharge instructions reviewed with patient and/or family. Voiced understanding. Scripts Potassium Chloride (Potassium Chloride) 10 Meq Capsule.er 10 MEQ PO DAILY, #14 CAP Prov: CHERYL WHITNEY APRN 07/26/21 Fludrocortisone Acetate (Fludrocortisone Acetate) 0.1 Mg Tab 0.1 MG PO DAILY, #10 TAB Prov: CHERYL WHITNEY APRN 07/26/21 Copy Copies To 1: CATRACHITA AGUILAR PETER J APRN Jul 26, 2021 13:05
[2021-07-26 13:15] LABS: ALBUMIN 3.3 GM/DL (3.2-4.5); BILIRUBIN,TOTAL 0.3 MG/DL (0.1-1.0); CALCIUM 8.5 MG/DL (8.5-10.1); CREATININE SERUM 1.24 MG/DL (0.60-1.30); POTASSIUM 3.2 MMOL/L (3.6-5.0); TOTAL PROTEIN 6.4 GM/DL (6.4-8.2)
[2021-07-26] MEDS ORDERED: fentaNYL INJ 100 MCG/2 ML AMP IVP ONE (13:30)
[2021-07-26 14:29] VITALS: BP_SYST 104; BP_SYST 105; BP_SYST 77; BP_DIAS 37; BP_DIAS 62; BP_DIAS 65
[2021-07-26 14:44] LABS: BILIRUBIN,URINE NEGATIVE (NEGATIVE); CLARITY,URINE CLEAR; COLOR,URINE YELLOW; GLUCOSE, URINE (UA) NEGATIVE (NEGATIVE); KETONES,URINE NEGATIVE (NEGATIVE); LEUKOCYTE ESTERASE ,URINE NEGATIVE (NEGATIVE); NITRITE,URINE NEGATIVE (NEGATIVE); PH,URINE 6.5 (5-9); PROTEIN,URINE NEGATIVE (NEGATIVE)
[2021-07-26] MEDS ORDERED: NS IV 1000 ML 1,000 ML IV SCH (14:45)
[2021-07-26 14:51] LABS: BACTERIA,URINE NEGATIVE /HPF; SQUAMOUS EPITHELIAL CELL,UR 0-2 /HPF; WBC,URINE RARE /HPF
[2021-07-26 15:23] VITALS: BP_SYST 124; BP_SYST 125; BP_SYST 143; BP_DIAS 65; BP_DIAS 66; BP_DIAS 84
[2021-07-26] MEDS ORDERED: POTA10CA43 PO (15:30)
[2021-07-26] MEDS ORDERED: FLDR.1T PO (15:30)
[2021-07-26 17:09] VITALS: BP 142/73
== END 2021-07-26 17:09 | disposition home or self-care (01) ==
LOC: EDUNIT# 12:18 → ER 12:20
DX: I95.1 Orthostatic hypotension (principal); K21.9 Gastro-esophageal reflux disease without esophagitis; J44.9 Chronic obstructive pulmonary disease, unspecified; Z79.899 Other long term (current) drug therapy
CPT/HCPCS: 36415; 80053; 81000; 85025

== ENCOUNTER 2021-12-23 17:54 | Observation (INO) | payer MEDICARE, MEDICAID ==
[~2021-12-23] VITALS: Ht 165 cm; Wt 89.5 kg
[~2021-12-23 17:54] MED LIST changes: +FLDR.1T PO; +POTA10CA43 PO
[2021-12-23] MEDS ORDERED: LACTATED RINGERS 1,000 ML IV ONE ×3 (18:00→20:39)
[2021-12-23 18:15] LABS: BASOPHILS % (AUTO) 0 % (0-10); EOSINOPHILS # (AUTO) 0.1 10^3/uL (0.0-0.3); EOSINOPHILS % (AUTO) 1 % (0-10); HEMATOCRIT 31 % (35-52); LYMPHOCYTES # (AUTO) 1.3 10^3/uL (1.0-4.0); LYMPHOCYTES % (AUTO) 14 % (12-44); MEAN CORPUSCULAR HEMOGLOBIN 30 pg (25-34); MEAN CORPUSCULAR HGB CONC 33 g/dL (32-36); MEAN CORPUSCULAR VOLUME 93 fL (80-99); MEAN PLATELET VOLUME 9.8 fL (9.0-12.2); MONOCYTES # (AUTO) 0.6 10^3/uL (0.0-1.0); MONOCYTES % (AUTO) 6 % (0-12); NEUTROPHILS # (AUTO) 7.4 10^3/uL (1.8-7.8); NEUTROPHILS % (AUTO) 78 % (42-75); PLATELET COUNT 344 10^3/uL (130-400); WHITE BLOOD COUNT 9.4 10^3/uL (4.3-11.0)
--- NOTE | 2021-12-23 18:15 | ED General ---
General Chief Complaint: Dizziness/Syncope Stated Complaint: SYNCOPE Nursing Triage Note: PT PRESENTS TO ED VIA EMS FROM HOME WITH COMPLAINTS OF R ANKLE PAIN, L HIP PAIN AFTER HAVING A SYNCOPAL EPISODE AT HOME AND FELL. PT REPORTS SHE FELT DIZZY AND WEAK UPON EMS ARRIVAL. Source of Information: Patient (HARD OF HEARING AND NOT WEARING HEARING AIDS), EMS History of Present Illness Date Seen by Provider: December 23, 2021 Time Seen by Provider: 17:55 Initial Comments PT ARRIVES VIA EMS PT REPORTS THAT SHE WAS USING HER WALKER AND GOT WEAK AND DIZZY, BROKE OUT IN A SWEAT AND PASSED OUT, HITTING HER HEAD ON THE FLOOR. C/O PAIN TO HEAD ALSO C/O PAIN TO LEFT> RIGHT HIP, BOTH KNEES AND RIGHT ANKLE AND WHOLE RIGHT LEG NO CHEST PAIN NO INCREASE IN CHRONIC SHORTNESS OF BREATH NO NAUSEA/VOMITING/DIARRHEA OR ABDOMINAL PAIN NO PALPITATIONS NO PARESTHESIAS OR MOTOR DEFICITS NO KNOWN FEVER HAS HAD A SORE THROAT AND LEFT EAR PAIN THIS WEEK NO COUGH OR URI SYMPTOMS PT RECEIVED HER FIRST COVID-19 BOOSTER YESTERDAY. BP 60'S/30'S FOR EMS, HR IN 60'S PT DID HAVE BRIEF SYNCOPE FOR EMS ON TRANSFERRING FROM FLOOR TO EMS CART. BLOOD GLUCOSE 144 FOR EMS. LMP 2017--HAS HAD BTL. PT HAS BEEN ADMITTED FOR SAME IN THE PAST AND HAS BEEN DX WITH ORTHOSTATIC HYPOTENSION AND SYNCOPE AND FREQUENT FALLS IN THE PAST PT HAS BEEN PRESCRIBED FLUDROCORTISONE IN THE PAST PCP: ARINA-JASEN, DAT AGUILAR Allergies and Home Medications Allergies Coded Allergies: No Known Drug Allergies (Unverified , 06/26/14) Patient Home Medication List Home Medication List Reviewed: Yes Esomeprazole Mag Trihydrate (Nexium) 40 Mg Capsule.dr, 40 MG PO DAILY, (Reported) Entered as Reported by: GERMAN CM on 06/25/14 1409 Fludrocortisone Acetate (Fludrocortisone Acetate) 0.1 Mg Tab, 0.1 MG PO DAILY Prescribed by: CHERYL WHITNEY on 07/26/21 1530 Gabapentin (Gabapentin) 600 Mg Tablet, 600 MG PO TID, (Reported) Entered as Reported by: BEAU ARCHER on 07/21/21 1818 Hydrocodone/Acetaminophen (Hydrocodone-Acetamin 5-325 mg) 1 Each Tablet, 1 TAB PO TID PRN for PAIN-MODERATE (5-7), (Reported) Entered as Reported by: BEAU ARCHER on 07/21/211817 Nicotine (Nicotine Patch) 1 Each Patch.td24, 21 MG TD DAILY, (Reported) Entered as Reported by: BEAU ARCHER on 07/21/211817 Ondansetron HCl (Ondansetron HCl) 4 Mg Tablet, 4 MG PO TID PRN for NAUSEA/VOMITING, (Reported) Entered as Reported by: BEAU ARCHER on 07/21/211817 Paroxetine HCl (Paxil) 40 Mg Tablet, 40 MG PO DAILY, (Reported) Entered as Reported by: BEAU ARCHER on 07/21/211817 Potassium Chloride (Potassium Chloride) 10 Meq Capsule.er, 10 MEQ PO DAILY Prescribed by: CHERYL WHITNEY on 07/26/211529 Tizanidine HCl (Tizanidine HCl) 4 Mg Tablet, 4 MG PO TID, (Reported) Entered as Reported by: BEAU ARCHER on 07/21/211817 Trazodone HCl (Trazodone HCl) 150 Mg Tablet, 150 MG PO HS, (Reported) Entered as Reported by: BEAU ARCHER on 07/21/211817 Review of Systems Review of Systems Constitutional: see HPI, diaphoresis, dizziness EENTM: see HPI, ear pain, throat pain; No nose congestion Respiratory: see HPI; No cough Cardiovascular: No chest pain, No edema, No palpitations; syncope Gastrointestinal: no symptoms reported; No abdominal pain, No diarrhea, No dylon sea, No vomiting Genitourinary: no symptoms reported Musculoskeletal: see HPI Skin: no symptoms reported Psychiatric/Neurological: See HPI, Headache; Denies Numbness, Denies Paresthesia, Denies Seizure, Denies Tingling, Denies Tremors, Denies Weakness Hematologic/Lymphatic: No Symptoms Reported Immunological/Allergic: no symptoms reported Past Grhisef-Plyjko-Ukyify Hx Patient Social History Tobacco Use?: Yes (1 PPD) Tobacco type used: Cigarettes Smoking Status: Current Everyday Smoker Substance use?: No Alcohol Use?: No Pt feels they are or have been: No Immunizations Up To Date First/Initial COVID19 Vaccinat: UNSURE OF DATE Second COVID19 Vaccination James: UNSURE OF DATE. 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, Menopausal Genitourinary: Yes Kidney Infection, UTI-Chronic Gastrointestinal: Yes Gastroesophageal Reflux Musculoskeletal: Yes (R TIB/FIB FX/ORIF;L FOREARM FX/ORIF;POOR AMBULATION-USES WALKER;CHR NECK PN) Chronic Back Pain, Fractures Endocrine: No HEENT: Yes Hearing Impairment: Hard of Hearing, Bilateral Hearing Aide Cancer: No Psychosocial: Yes Anxiety, Depression Integumentary: Yes (EXTENSIVE HISTORY OF MRSA WITH I&D'S) Physical Exam Vital Signs Vital Signs - First Documented 12/23/21 18:00 Temp 36.2 Pulse 64 Resp 18 B/P (MAP) 70/44 (53) Pulse Ox 96 Capillary Refill : Less Than 3 Seconds Height, Weight, BMI Height: 5'5" Weight: 175lbs. oz. [id number]; 30.00 BMI Method:Stated General Appearance: No Apparent Distress, WD/WN, Obese, Other (SPEECH RAPID AND SOMEWHAT MUMBLED AND DIFFICULT TO UNDERSTAND AT TIMES. ) HEENT: PERRL/EOMI (PUPILS PINPOINT), TMs Normal, Pharynx Normal, Moist Mucous Membranes, Other (POOR DENTITION) Neck: Full Range of Motion, Normal Inspection, Non Tender, Supple Respiratory: Chest Non Tender, Normal Breath Sounds, No Accessory Muscle Use, No Respiratory Distress Cardiovascular: Regular Rate, Rhythm, No Murmur, Normal Peripheral Pulses Gastrointestinal: Non Tender, Soft Back: Normal Inspection, No CVA Tenderness, No Vertebral Tenderness Extremity: Normal Capillary Refill, Other (TENDERNESS AND SWELLING TO RIGHT LATERAL MALLEOLUS. PT IS NOT TENDER IN OTHER AREAS THAT SHE HAS COMPLAINED OF PAIN. 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 PT HAS EXTENSIVE SCARRING TO BILATERAL FOREARMS AND THIGHS--PT STATES IS FROM MRSA ABSCESSES) Focused Exam Lactate Level 12/23/21 18:00: Lactic Acid Level 1.86 Lactic Acid Level Laboratory Tests Test 12/23/21 18:00 Lactic Acid Level 1.86 MMOL/L (0.50-2.00) Progress/Results/Core Measures Suspected Sepsis SIRS Temperature: Pulse: 64 Respiratory Rate: 18 Laboratory Tests 12/23/21 18:00: White Blood Count 9.4 Blood Pressure 70 /44 Mean: 53 12/23/21 18:00: Lactic Acid Level 1.86 Laboratory Tests 12/23/21 18:00: Creatinine 1.53H, INR Comment 1.0, Platelet Count 344, Total Bilirubin 0.4 Results/Orders Lab Results Laboratory Tests Test 12/23/21 18:00 12/23/21 18:10 12/23/21 18:38 Range/Units White Blood Count 9.4 4.3-11.0 10^3/uL Red Blood Count 3.32 L 3.80-5.11 10^6/uL Hemoglobin 10.0 L 11.5-16.0 g/dL Hematocrit 31 L 35-52 % Mean Corpuscular Volume 93 80-99 fL Mean Corpuscular Hemoglobin 30 25-34 pg Mean Corpuscular Hemoglobin Concent 33 32-36 g/dL Red Cell Distribution Width 13.1 10.0-14.5 % Platelet Count 344 130-400 10^3/uL Mean Platelet Volume 9.8 9.0-12.2 fL Immature Granulocyte % (Auto) 0 % Neutrophils (%) (Auto) 78 H 42-75 % Lymphocytes (%) (Auto) 14 12-44 % Monocytes (%) (Auto) 6 0-12 % Eosinophils (%) (Auto) 1 0-10 % Basophils (%) (Auto) 0 0-10 % Neutrophils # (Auto) 7.4 1.8-7.8 10^3/uL Lymphocytes # (Auto) 1.3 1.0-4.0 10^3/uL Monocytes # (Auto) 0.6 0.0-1.0 10^3/uL Eosinophils # (Auto) 0.1 0.0-0.3 10^3/uL Basophils # (Auto) 0.0 0.0-0.1 10^3/uL Immature Granulocyte # (Auto) 0.0 0.0-0.1 10^3/uL Erythrocyte Sedimentation Rate 66 H 0-30 MM/HR Prothrombin Time 13.1 12.2-14.7 SEC INR Comment 1.0 0.8-1.4 Activated Partial Thromboplast Time 32 24-35 SEC D-Dimer 0.86 H 0.00-0.49 UG/ML Sodium Level 138 135-145 MMOL/L Potassium Level 3.6 3.6-5.0 MMOL/L Chloride Level 109 H 98-107 MMOL/L Carbon Dioxide Level 16 L 21-32 MMOL/L Anion Gap 13 5-14 MMOL/L Blood Urea Nitrogen 13 7-18 MG/DL Creatinine 1.53 H 0.60-1.30 MG/DL Estimat Glomerular Filtration Rate 41 BUN/Creatinine Ratio 8 Glucose Level 96 70-105 MG/DL Lactic Acid Level 1.86 0.50-2.00 MMOL/L Calcium Level 8.6 8.5-10.1 MG/DL Corrected Calcium 9.1 8.5-10.1 MG/DL Magnesium Level 2.0 1.6-2.4 MG/DL Total Bilirubin 0.4 0.1-1.0 MG/DL Aspartate Amino Transf (AST/SGOT) 59 H 5-34 U/L Alanine Aminotransferase (ALT/SGPT) 33 0-55 U/L Alkaline Phosphatase 81 40-136 U/L Total Creatine Kinase 119 29-168 U/L Creatine Kinase MB 1.8 <6.6 NG/ML Myoglobin 77.0 10.0-92.0 NG/ML Troponin I < 0.028 <0.028 NG/ML C-Reactive Protein High Sensitivity 5.12 H 0.00-0.50 MG/DL B-Type Natriuretic Peptide 97.8 <100.0 PG/ML Total Protein 6.4 6.4-8.2 GM/DL Albumin 3.4 3.2-4.5 GM/DL Amylase Level 48 25-125 U/L Lipase 14 8-78 U/L Procalcitonin 0.30 H <0.10 NG/ML TSH [place] Testing 1.38 0.35-4.94 UIU/ML Human Chorionic Gonadotropin, Quant < 5 <5 MIU/ML Serum Test, Qualitative POSITIVE NEGATIVE Serum Alcohol < 10 <10 MG/DL Urine Color YELLOW Urine Clarity SL CLOUDY Urine pH 6.0 5-9 Urine Specific [place] 1.015 L 1.016-1.022 Urine Protein 2+ H NEGATIVE Urine Glucose (UA) NEGATIVE NEGATIVE Urine Ketones NEGATIVE NEGATIVE Urine Nitrite NEGATIVE NEGATIVE Urine Bilirubin NEGATIVE NEGATIVE Urine Urobilinogen 0.2 < = 1.0 MG/DL Urine Leukocyte Esterase NEGATIVE NEGATIVE Urine RBC (Auto) 3+ H NEGATIVE Urine RBC 10-25 H /HPF Urine WBC 0-2 /HPF Urine Squamous Epithelial Cells RARE /HPF Urine Crystals NONE /LPF Urine Bacteria MODERATE H /HPF Urine Casts PRESENT /LPF Urine Hyaline Casts RARE /LPF Urine Mucus NEGATIVE /LPF Urine Yeast FEW H /HPF Urine Culture Indicated CULTURE PENDING Urine Opiates Screen NEGATIVE NEGATIVE Urine Oxycodone Screen NEGATIVE NEGATIVE Urine Methadone Screen NEGATIVE NEGATIVE Urine Propoxyphene Screen NEGATIVE NEGATIVE Urine Barbiturates Screen NEGATIVE NEGATIVE Ur Tricyclic Antidepressants Screen NEGATIVE NEGATIVE Urine Phencyclidine Screen NEGATIVE NEGATIVE Urine Amphetamines Screen NEGATIVE NEGATIVE Urine Methamphetamines Screen NEGATIVE NEGATIVE Urine Benzodiazepines Screen NEGATIVE NEGATIVE Urine Cocaine Screen NEGATIVE NEGATIVE Urine Cannabinoids Screen NEGATIVE NEGATIVE Influenza Type A (RT-PCR) Not Detected Not Detecte Influenza Type B (RT-PCR) Not Detected Not Detecte SARS-CoV-2 RNA (RT-PCR) Not Detected Not Detecte Glucometer 96 70-110 MG/DL My Orders Orders - STACEY WEBSTER DO Accucheck Stat ONCE (12/23/21 17:57) Ed Iv/Invasive Line Start (12/23/21 17:57) Ekg Tracing (12/23/21 17:57) Catheter(Urinary) Insert & Ass 03,15 (12/23/21 17:57) O2 (12/23/21 17:57) Monitor-Rhythm Ecg Trace Only (12/23/21 17:57) Amylase (12/23/21 17:57) Bnp Addy (12/23/21 17:57) Cbc With Automated Diff (12/23/21 17:57) Comprehensive Metabolic Panel (12/23/21 17:57) Creatine Kinase (12/23/21 17:57) Creatine Kinase Mb (12/23/21 17:57) Hs C Reactive Protein (12/23/21 17:57) Fibrin Degradation Products (12/23/21 17:57) Hcg,Qualitative Serum (12/23/21 17:57) Lactic Acid Analyzer (12/23/21 17:57) Lipase (12/23/21 17:57) Magnesium (12/23/21:57) Protime With Inr (12/23/21:57) Partial Thromboplastin Time (12/23/21 17:57) Thyroid Analyzer (12/23/21 17:57) Ua Culture If Indicated (12/23/21:57) Erythrocyte Sedimentation Rate (12/23/21 17:57) Myoglobin Serum (12/23/21 17:57) Troponin I Addy (12/23/21 17:57) Chest 1 View, Ap/Pa Only (12/23/21:57) Blood Culture (12/23/21:57) Sputum Culture (12/23/21:57) Urine Culture (12/23/21 17:57) Ed Iv/Invasive Line Start (12/23/21 17:57) Ed Iv/Invasive Line Start (12/23/21 17:57) Vital Signs Adult Sepsis Patie Q15M (12/23/21 17:57) O2 (12/23/21 17:57) Remove Rings In Anticipation O (12/23/21 17:57) Ct Head/Cervical Spine Wo (12/23/21 17:57) Procalcitonin (Pct) (12/23/21 17:57) Covid 19 Inhouse Test (12/23/21 17:57) Influenza A And B By Pcr (12/23/21 17:57) Isolation Central Supply Req (12/23/21 17:57) Ed Iv/Invasive Line Start (12/23/21 18:00) Lactated Ringers (Lr 1000 Ml Iv Solution (12/23/21 18:00) Pelvis/Omi Hips 5> Views (12/23/21 18:05) Alcohol (12/23/21 18:05) Drug Screen Stat (Urine) (12/23/21 18:05) Ondansetron Injection (Zofran Injectio (12/23/21 18:45) Femur, Bilateral, 2 Views (12/23/21 18:05) Tibia/Fibula, Bilateral, 2view (12/23/21 18:05) Ankle, Bilateral, 3 Views (12/23/21 18:05) Hcg,Quantitative (12/23/21 19:00) Abo Rh Type (12/23/21 19:00) Ct Ramona Chest/Noang Abd-Pelv W (12/23/21 19:37) Ed Iv/Invasive Line Start (12/23/21 19:47) Lactated Ringers (Lr 1000 Ml Iv Solution (12/23/21 20:00) Ceftriaxone 1 Gm Pre-Mix (Rocephin 1 Gm (12/23/21 19:47) Iohexol Injection (Omnipaque 350 Mg/Ml 1 (12/23/21 20:00) Ns (Ivpb) (Sodium Chloride 0.9% Ivpb Bag (12/23/21 20:00) Lactated Ringers (Lr 1000 Ml Iv Solution (12/23/21 20:39) Ed Admission (Communication) (12/23/21 22:40) Medications Given in ED Current Medications Medications Dose Ordered Sig/Efren Route Start Time Stop Time Status Last Admin Dose Admin Iohexol 100 ml ONCE ONCE IV 12/23/21 20:00 12/23/21 20:01 DC 12/23/21 19:57 88 ML Lactated Ringer's 1,000 ml @ 0 mls/hr Q0M ONCE IV 12/23/21 18:00 12/23/21 18:01 DC 12/23/21 18:24 0 MLS/HR Lactated Ringer's 1,000 ml @ 0 mls/hr Q0M ONCE IV 12/23/21 20:00 12/23/21 20:01 DC 12/23/21 20:47 1,000 MLS/HR Ondansetron HCl 4 mg ONCE ONCE IVP 12/23/21 18:45 12/23/21 18:46 DC 12/23/21 18:53 4 MG Sodium Chloride 100 ml ONCE ONCE IV 12/23/21 20:00 12/23/21 20:01 DC 12/23/21 19:57 70 ML Vital Signs/I&O 12/23/21 18:00 Temp 36.2 Pulse 64 Resp 18 B/P (MAP) 70/44 (53) Pulse Ox 96 12/23/21 23:59 Intake Total 2000 ml Balance 2000 ml Capillary Refill : Less Than 3 Seconds Blood Pressure Mean: 53 Progress Note : Progress Note PLACED IN ISOLATION ROOM PPE WORN COVID AND FLU TESTING DONE 1841--PT NOW C/O NAUSEA--GIVEN ZOFRAN BP > 100 SYSTOLIC WITH IV FLUIDS --GIVEN TOTAL OF 2 LITERS OF FLUIDS NO DETERIORATION IN PT'S CONDITION DURING ER STAY ECG Initial ECG Impression Date: December 23, 2021 Initial ECG Impression Time: 18:33 Initial ECG Rate: 63 Initial ECG Rhythm: Normal Sinus Diagnostic Imaging Comments CT SCANS--PER RADIOLOGIST REPORTS AT 2026 CT HEAD/CERVICAL SPINE-- FINDINGS: The ventricles and cerebral spinal fluid spaces are of normal size and configuration for the patient's age. There is no mass effect or midline shift. There is no acute intracranial hemorrhage. There is no abnormal extra-axial fluid collection. The visualized portions of the paranasal sinuses, mastoid air cells and middle ears are well aerated. There is no identified facet joint subluxation or dislocation. There is no asymmetric widening of the cervical disc spaces. There is moderate disc height loss at C5-C6 and C6-C7. There is a superior endplate concavity of T2. CT is limited for assessment of disc pathology as well as additional non-bony causes of pathology in the spinal canal. There is no identified acute fracture of the cervical spine. Visualized portions of the lung apices are clear. IMPRESSION: 1. No identified acute intracranial abnormality. 2. No identified acute abnormality of the cervical spine. 3. Multilevel disc degenerative changes of the cervical spine. CT ANGIOGRAM CHEST / ABDOMEN-PELVIS--FINDINGS: CTA CHEST: Heart size upper limits of normal. No disproportionate right heart strain. There is no pulmonary artery filling defect to suggest pulmonary embolism. Thoracic aorta is relatively normal in contour. Intraluminal assessment is limited. No significant mediastinal hematoma. Mildly prominent soft tissue in the bilateral harrison likely mild lymphadenopathy. Slightly more pronounced in the right infrahilar region measuring up to 16 x 14 mm. There is mild hypoventilation at the lung bases. No consolidating infiltrate, effusion or pneumothorax. CT ABDOMEN and PELVIS: Liver is enlarged with a prominent Karel's lobe. No definitive focal lesion. Mild fatty infiltration. Gallbladder absent. No significant bile ductal dilatation. The bilateral adrenal glands, spleen and splenule, as well as pancreas, appear unremarkable for acute abnormality. Abdominal aorta normal in contour. Nonaneurysmal. Low-density renal masses favor probable cysts. No definitive ureteric calcification or obstruction. The gastrointestinal tract demonstrates no obstruction. Suggestion of slight fatty infiltration of the terminal ileum and proximal colon could be reflective of previous inflammation. Appendix is near midline and unremarkable. Small fat-containing umbilical hernia. No abdominal ascites and/or free air. Urinary bladder decompressed around a Arias catheter. Uterus and adnexa appear unremarkable. IMPRESSION: CTA CHEST: 1. No CT evidence for pulmonary embolism. 2. Mildly prominent hilar lymphadenopathy. CT ABDOMEN and PELVIS: 1. Negative for acute abnormality about the abdomen or pelvis. 2. Hepatomegaly with mild steatosis. XRAYS--PER RADIOLOGIST REPORTS AT 2202 CXR-- FINDINGS: Heart size is enlarged. Mediastinum mildly prominent, likely tortuous ectatic thoracic aorta. Vasculature slightly increased. No consolidating infiltrate. IMPRESSION: Borderline heart size and vasculature but without definitive overt failure. No pulmonary infiltrate. PELVIS / BILATERAL HIPS-- FINDINGS: The pelvis demonstrates no evidence for acute fracture. The pectineal lines and obturator rings are maintained. Pubic symphysis and SI joints are unremarkable. Images of the hip demonstrate no evidence for acute fracture. Alignment is anatomic. The femoral head acetabular relationship is unremarkable. The bony trabecular pattern is intact. Arias catheter tubing is present. Small amount of contrast in the bladder and low ureters. IMPRESSION: Negative examination of the pelvis and bilateral hips. BILATERAL FEMURS-- FINDINGS: There is no acute fracture of either femur. The bilateral hip and knee joints are generally unremarkable. Partial visualization of intramedullary brad in the proximal right tibia. IMPRESSION: Negative for acute bony abnormality of either femur. BILATERAL TIB-FIB-- FINDINGS: The tibia and fibula are intact. There is no evidence for acute fracture. Limited visualized portions of the knee and ankle are unremarkable. Longstem intramedullary brad in the right tibia with proximal and distal fixation screws. Soft tissues are unremarkable. IMPRESSION: 1.Negative for acute bony abnormality of either leg. BILATERAL ANKLES-- FINDINGS: There is no acute fracture or dislocation of either ankle. There is partial visualization of longstem intramedullary brad and 3 distal fixation screws of the right tibia. Hardware appears to be intact. Ankle mortise is overall fairly well maintained. There is mild soft tissue edema over the ankles, right greater than left. IMPRESSION: Negative for acute pulmonary abnormality of either ankle. Soft tissue edema, particularly at the right ankle. Reviewed: Reviewed by Co Departure Communication (Admissions) 2046--SPOKE WITH DR. FRENCH, HOSPITALIST FOR [facility]. ACCEPTS PT FOR ADMIT. SHE WILL DO ADMIT ORDERS Impression Primary Impression: Syncope Additional Impressions: Symptomatic hypotension Urinary tract infection Acute kidney injury Dehydration Anemia Disposition: 09 ADMITTED INPATIENT Condition: Improved Admissions Decision to Admit Reason: Admit from ER (General) Decision to Admit/Date: December 23, 2021 Time/Decision to Admit Time: 20:47 Departure-Patient Inst. Referrals: [facility] (PCP/Family) Primary Care Physician STACEY WEBSTER DO December 23, 2021 18:15
[2021-12-23 18:30] LABS: BILIRUBIN,URINE NEGATIVE (NEGATIVE); CLARITY,URINE SL CLOUDY; COLOR,URINE YELLOW; GLUCOSE, URINE (UA) NEGATIVE (NEGATIVE); KETONES,URINE NEGATIVE (NEGATIVE); LEUKOCYTE ESTERASE ,URINE NEGATIVE (NEGATIVE); NITRITE,URINE NEGATIVE (NEGATIVE); PROTEIN,URINE 2+ (NEGATIVE)
[2021-12-23 18:35] LABS: ALBUMIN 3.4 GM/DL (3.2-4.5); CHLORIDE 109 MMOL/L (98-107); FIBRIN DEGRADATION PRODUCTS 0.86 UG/ML (0.00-0.49); POTASSIUM 3.6 MMOL/L (3.6-5.0); PROTHROMBIN TIME PATIENT 13.1 SEC (12.2-14.7); SODIUM 138 MMOL/L (135-145)
[2021-12-23 18:36] LABS: AMYLASE 48 U/L (25-125); CALCIUM 8.6 MG/DL (8.5-10.1)
[2021-12-23 18:37] LABS: GLUCOSE 96 MG/DL (70-105)
[2021-12-23 18:38] LABS: TOTAL PROTEIN 6.4 GM/DL (6.4-8.2)
[2021-12-23 18:39] LABS: BILIRUBIN,TOTAL 0.4 MG/DL (0.1-1.0); CARBON DIOXIDE 16 MMOL/L (21-32)
[2021-12-23 18:41] LABS: ALKALINE PHOSPHATASE 81 U/L (40-136); CREATININE SERUM 1.53 MG/DL (0.60-1.30); GFR ESTIMATED 41
[2021-12-23 18:42] LABS: BUN/CREATININE RATIO 8
[2021-12-23 18:44] LABS: ALANINE AMINOTRANSFERASE 33 U/L (0-55)
[2021-12-23 18:45] LABS: CREATINE KINASE 119 U/L (29-168); LIPASE 14 U/L (8-78)
[2021-12-23] MEDS ORDERED: ONDANSETRON 4 MG/2 ML (SDV) Z0FRAN IVP ONE (18:45)
[2021-12-23 18:50] LABS: AMPHETAMINE SCREEN, URINE NEGATIVE (NEGATIVE); BARBITURATE SCREEN URINE NEGATIVE (NEGATIVE); BENZODIAZEPINES SCREEN URINE NEGATIVE (NEGATIVE); CANNABINOID SCREEN, URINE NEGATIVE (NEGATIVE); COCAINE SCREEN URINE NEGATIVE (NEGATIVE); METHADONE STAT NEGATIVE (NEGATIVE); OPIATE SCREEN URINE NEGATIVE (NEGATIVE); OXYCODONE STAT NEGATIVE (NEGATIVE); PROPOXYPHENE STAT NEGATIVE (NEGATIVE); TRICYCLIC ANTIDEPRESSANTS SCRE NEGATIVE (NEGATIVE)
[2021-12-23 18:51] LABS: BACTERIA,URINE MODERATE /HPF; HYALINE CASTS, URINE RARE /LPF; SQUAMOUS EPITHELIAL CELL,UR RARE /HPF; WBC,URINE 0-2 /HPF
[2021-12-23 18:51] LABS: ERYTHROCYTE SEDIMENTATION RATE 66 MM/HR (0-30)
[2021-12-23 18:52] LABS: YEAST,URINE FEW /HPF
[2021-12-23 18:54] LABS: CREATINE KINASE MB 1.8 NG/ML (<6.6)
[2021-12-23 19:05] LABS: TSH (THYROID ANALYZER) 1.38 UIU/ML (0.35-4.94)
[2021-12-23] MEDS ORDERED: cefTRIAXone 1 GM PRE-MIX 50 ML IV STA (19:47)
[2021-12-23] MEDS ORDERED: NS 100 ML (IVPB) BAG IV ONE (20:00)
[2021-12-23] MEDS ORDERED: IOHEXOL 350 MG/ML 100 ML (OMNIPAQUE 350) VIAL IV ONE (20:00)
--- NOTE | 2021-12-23 20:03 | Diagnostic Imaging Report ---
PROCEDURE: CT head and CT cervical spine without contrast. TECHNIQUE: Multiple contiguous axial images were obtained through the brain and cervical spine without the use of intravenous contrast. Sagittal and coronal reformations through the cervical spine were then performed. Auto Exposure Controls were utilized during the CT exam to meet ALARA standards for radiation dose reduction. DATE: December 23, 2021. COMPARISON: CT head July 21, 2021. INDICATION: 51-year-old female, syncope. Head and neck pain. Fall. FINDINGS: The ventricles and cerebral spinal fluid spaces are of normal size and configuration for the patient's age. There is no mass effect or midline shift. There is no acute intracranial hemorrhage. There is no abnormal extra-axial fluid collection. The visualized portions of the paranasal sinuses, mastoid air cells and middle ears are well aerated. There is no identified facet joint subluxation or dislocation. There is no asymmetric widening of the cervical disc spaces. There is moderate disc height loss at C5-C6 and C6-C7. There is a superior endplate concavity of T2. CT is limited for assessment of disc pathology as well as additional non-bony causes of pathology in the spinal canal. There is no identified acute fracture of the cervical spine. Visualized portions of the lung apices are clear. IMPRESSION: 1. No identified acute intracranial abnormality. 2. No identified acute abnormality of the cervical spine. 3. Multilevel disc degenerative changes of the cervical spine. Dictated by: Dictated on workstation # [id number]
--- NOTE | 2021-12-23 20:19 | Diagnostic Imaging Report ---
INDICATION: 81-year-old female, syncopal episode, dizzy, weak, elevated D-dimer. TECHNIQUE: CTA chest, abdomen and pelvis. Thin axial sections through the chest, abdomen and pelvis are obtained following intravenous contrast bolus. Multiplanar MIP images were reconstructed and reviewed. All CT scans use one or more of the following dose optimizing techniques: automated exposure control, MA and/or KvP adjustment based on patient size and exam type or iterative reconstruction. COMPARISON: CT abdomen and pelvis 06/26/2014. CORRELATION STUDY: None. FINDINGS: CTA CHEST: Heart size upper limits of normal. No disproportionate right heart strain. There is no pulmonary artery filling defect to suggest pulmonary embolism. Thoracic aorta is relatively normal in contour. Intraluminal assessment is limited. No significant mediastinal hematoma. Mildly prominent soft tissue in the bilateral harrison likely mild lymphadenopathy. Slightly more pronounced in the right infrahilar region measuring up to 16 x 14 mm. There is mild hypoventilation at the lung bases. No consolidating infiltrate, effusion or pneumothorax. CT ABDOMEN and PELVIS: Liver is enlarged with a prominent Karel's lobe. No definitive focal lesion. Mild fatty infiltration. Gallbladder absent. No significant bile ductal dilatation. The bilateral adrenal glands, spleen and splenule, as well as pancreas, appear unremarkable for acute abnormality. Abdominal aorta normal in contour. Nonaneurysmal. Low-density renal masses favor probable cysts. No definitive ureteric calcification or obstruction. The gastrointestinal tract demonstrates no obstruction. Suggestion of slight fatty infiltration of the terminal ileum and proximal colon could be reflective of previous inflammation. Appendix is near midline and unremarkable. Small fat-containing umbilical hernia. No abdominal ascites and/or free air. Urinary bladder decompressed around a Arias catheter. Uterus and adnexa appear unremarkable. IMPRESSION: CTA CHEST: 1. No CT evidence for pulmonary embolism. 2. Mildly prominent hilar lymphadenopathy. CT ABDOMEN and PELVIS: 1. Negative for acute abnormality about the abdomen or pelvis. 2. Hepatomegaly with mild steatosis. Dictated by: Dictated on workstation # [id number]
--- NOTE | 2021-12-23 20:29 | Diagnostic Imaging Report ---
INDICATION: Syncope. TECHNIQUE: Single view chest 8:01 PM. CORRELATION STUDY: 07/21/2021. FINDINGS: Heart size is enlarged. Mediastinum mildly prominent, likely tortuous ectatic thoracic aorta. Vasculature slightly increased. No consolidating infiltrate. IMPRESSION: Borderline heart size and vasculature but without definitive overt failure. No pulmonary infiltrate. Dictated by: Dictated on workstation # [id number]
--- NOTE | 2021-12-23 20:48 | Diagnostic Imaging Report ---
INDICATION: Syncope, bilateral leg pain. TECHNIQUE: AP and lateral views of bilateral femurs at 8:22 PM. CORRELATION STUDY: None. FINDINGS: There is no acute fracture of either femur. The bilateral hip and knee joints are generally unremarkable. Partial visualization of intramedullary brad in the proximal right tibia. IMPRESSION: Negative for acute bony abnormality of either femur. Dictated by: Dictated on workstation # [id number]
--- NOTE | 2021-12-23 20:54 | Diagnostic Imaging Report ---
INDICATION: Syncope, pelvic pain TECHNIQUE: AP pelvis along with 2 views bilateral hip, 8:20 PM CORRELATION STUDY: None FINDINGS: The pelvis demonstrates no evidence for acute fracture. The pectineal lines and obturator rings are maintained. Pubic symphysis and SI joints are unremarkable. Images of the hip demonstrate no evidence for acute fracture. Alignment is anatomic. The femoral head acetabular relationship is unremarkable. The bony trabecular pattern is intact. Arias catheter tubing is present. Small amount of contrast in the bladder and low ureters. IMPRESSION: Negative examination of the pelvis and bilateral hips. Dictated by: Dictated on workstation # [id number]
--- NOTE | 2021-12-23 21:08 | Diagnostic Imaging Report ---
INDICATION: Syncope, bilateral leg pain TECHNIQUE: AP and lateral views of the bilateral tibia and fibula CORRELATION STUDY: None FINDINGS: The tibia and fibula are intact. There is no evidence for acute fracture. Limited visualized portions of the knee and ankle are unremarkable. Longstem intramedullary brad in the right tibia with proximal and distal fixation screws. Soft tissues are unremarkable. IMPRESSION: 1.Negative for acute bony abnormality of either leg. Dictated by: Dictated on workstation # [id number]
--- NOTE | 2021-12-23 21:21 | Diagnostic Imaging Report ---
INDICATION: Bilateral ankle pain, syncope. TECHNIQUE: Three views of bilateral ankles, 8:08 PM. CORRELATION STUDY: None. FINDINGS: There is no acute fracture or dislocation of either ankle. There is partial visualization of longstem intramedullary brad and 3 distal fixation screws of the right tibia. Hardware appears to be intact. Ankle mortise is overall fairly well maintained. There is mild soft tissue edema over the ankles, right greater than left. IMPRESSION: Negative for acute pulmonary abnormality of either ankle. Soft tissue edema, particularly at the right ankle. Dictated by: Dictated on workstation # [id number]
[2021-12-23] MEDS ORDERED: diphenhydrAMINE 25 MG TAB (BENADRYL) PO PRN (23:15)
[2021-12-23] MEDS ORDERED: LACTULOSE SYRUP 10GM/15ML (ENULOSE) 30ML UDC PO PRN (23:15)
[2021-12-23] MEDS ORDERED: ONDANSETRON 4 MG (ZOFRAN) ORAL DISSOLVE TAB PO PRN (23:15)
[2021-12-23] MEDS ORDERED: CALCIUM CARBONATE 500 MG (TUMS) TAB.CHEW PO PRN (23:15)
[2021-12-23] MEDS ORDERED: morphine IMMEDIATE RELEASE 15 MG TABLET PO PRN (23:15)
[2021-12-23] MEDS ORDERED: ANTACID SUSP 30 ML UDC (MYLANTA) PO PRN (23:15)
[2021-12-23] MEDS ORDERED: ACETAMINOPHEN 325 MG TABLET PO PRN (23:15)
[2021-12-23] MEDS ORDERED: morphine INJ 4 MG/ML 1 ML (VIAL/SYRINGE) IV PRN (23:15)
[2021-12-23] MEDS ORDERED: MELATONIN 3 MG TABLET PO PRN (23:15)
[2021-12-23] MEDS ORDERED: ONDANSETRON 4 MG/2 ML (SDV) Z0FRAN IV PRN (23:15)
[2021-12-23] MEDS ORDERED: diphenhydrAMINE 50 MG/ML INJ (BENADRYL) IVP PRN (23:15)
[2021-12-23] MEDS ORDERED: MILK OF MAGNESIA 400 MG/5 ML 30 ML UDC PO PRN (23:15)
[2021-12-23] MEDS ORDERED: BISACODYL 10 MG SUPP (DULCOLAX) PR PRN (23:15)
[2021-12-23] MEDS ORDERED: polyethylene glycoL POWDER 17 GM (MIRALAX) PACK PO PRN (23:15)
[2021-12-23 23:22] VITALS: BP 134/89
[2021-12-23 23:34] VITALS: BP 70/44
[2021-12-23] MEDS ORDERED: RT-ALBUTEROL/IPRATROPIUM 3 ML (DUONEB) VIAL INH PRN (23:45)
[2021-12-23] MEDS: ENOXAPARIN 40 MG/0.4 ML (LOVENOX) SYR SC SCH (23:58)
[2021-12-23] MEDS: NS IV 1000 ML 1,000 ML IV SCH (23:58)
[2021-12-24 03:46] VITALS: BP 149/85
--- NOTE | 2021-12-24 05:13 | History & Physical-Hospitalist ---
History of Present Illness HPI/Chief Complaint Chief Complaint: Orthostatic Hypotension HPI: This is a 51 year old White Female deaf patient of [facility] who presented to [place] [facility] with Syncope and multiple episodes of it. She does have a history of Orthostatic Hypotension she takes Florinef for. She appeared to be dehydrated with a Creatinine of 1.5 so she was admitted and given IV fluids. I will restart her Florinef and ambulate. Source: patient Exam Limitations: no limitations Date Seen 12/24/21 Time Seen by a Provider: 05:00 Attending Physician Corrie Sullivan DO [facility] Referring Physician Date of Admission December 23, 2021 at 22:40 Home Medications & Allergies Home Medications Reviewed patient Home Medication Reconciliation performed by pharmacy medication reconciliations laser technician and/or nursing. Patients Allergies have been reviewed. Allergies Allergies Coded Allergies No Known Drug Allergies ([id number]/15/14) Past Pberewg-Oiprsk-Ogatxt Hx Patient Social History Marrital Status: single Employed/Student: unemployed Tobacco Use?: Yes Tobacco type used: Cigarettes Smoking Status: Current Everyday Smoker Use of E-Cig and/or Vaping dev: Yes Substance use?: No Alcohol Use?: No Pt feels they are or have been: No Immunizations Up To Date Date of Influenza Vaccine: Jun 28, 2021 First/Initial COVID19 Vaccinat: UNSURE OF DATE Second COVID19 Vaccination James: UNSURE OF DATE. 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, Menopausal Kidney Infection, UTI-Chronic Gastroesophageal Reflux Chronic Back Pain, Fractures Hearing Impairment: Hard of Hearing, Bilateral Hearing Aide Anxiety, Depression Review of Systems Constitutional: see HPI, dizziness, malaise, weakness EENTM: no symptoms reported Respiratory: no symptoms reported Cardiovascular: no symptoms reported Gastrointestinal: loss of appetite, nausea Genitourinary: no symptoms reported Musculoskeletal: no symptoms reported Skin: no symptoms reported Psychiatric/Neurological: No Symptoms Reported All Other Systems Reviewed Negative Unless Noted: Yes Physical Exam Physical Exam Vital Signs Vital Signs - First Documented 12/23/21 12/23/21 18:00 23:22 Temp 36.2 Pulse 64 Resp 18 B/P (MAP) 70/44 (53) Pulse Ox 96 O2 Delivery Room Air Capillary Refill : Less Than 3 Seconds Height, Weight, BMI Height: 5'5" Weight: 175lbs. oz. [id number]; 32.87 BMI Method:Stated General Appearance: No Apparent Distress, Chronically ill Eyes: Right Eye Normal Inspection, Right Eye PERRL HEENT: PERRL/EOMI, Normal ENT Inspection, Pharynx Normal, Moist Mucous Mem branes Neck: Full Range of Motion, Normal Inspection, Non Tender Respiratory: Chest Non Tender, Lungs Clear, Normal Breath Sounds, No Accessory Muscle Use, No Respiratory Distress Cardiovascular: Regular Rate, Rhythm, No Edema, No Gallop, No JVD, No Murmur, Normal Peripheral Pulses Gastrointestinal: Normal Bowel Sounds, No Organomegaly, No Pulsatile Mass, Non Tender, Soft Back: Normal Inspection, No CVA Tenderness, No Vertebral Tenderness Extremity: Normal Capillary Refill, Normal Inspection, Normal Range of Motion, Non Tender, No Calf Tenderness, No Pedal Edema Neurologic/Psychiatric: Alert, Oriented x3, No Motor/Sensory Deficits, Normal Mood/Affect Skin: Normal Color, Warm/Dry Lymphatic: No Adenopathy Results Results/Procedures Labs Laboratory Tests 12/23/21 18:00 12/24/21 05:26 12/24/21 05:29 Patient resulted labs reviewed. Assessment/Plan Admission Diagnosis Assessment: Syncope Orthostatic hypotension COPD Smoker Acute kidney injury Dehydration Plan: IV fluids Florinef Telemetry Admission Status: Observation Reason for Inpatient Admission: syncope Diagnosis/Problems Diagnosis/Problems (1) Symptomatic hypotension Status: Acute (2) Syncope Status: Acute CORRIE SULLIVAN DO December 24, 2021 05:13
[2021-12-24 06:04] LABS: BASOPHILS % (AUTO) 0 % (0-10); EOSINOPHILS # (AUTO) 0.1 10^3/uL (0.0-0.3); EOSINOPHILS % (AUTO) 1 % (0-10); HEMATOCRIT 30 % (35-52); HEMOGLOBIN 9.7 g/dL (11.5-16.0); LYMPHOCYTES # (AUTO) 1.5 10^3/uL (1.0-4.0); LYMPHOCYTES % (AUTO) 16 % (12-44); MEAN CORPUSCULAR HEMOGLOBIN 31 pg (25-34); MEAN CORPUSCULAR HGB CONC 33 g/dL (32-36); MEAN CORPUSCULAR VOLUME 93 fL (80-99); MONOCYTES # (AUTO) 0.6 10^3/uL (0.0-1.0); MONOCYTES % (AUTO) 6 % (0-12); NEUTROPHILS # (AUTO) 7.4 10^3/uL (1.8-7.8); NEUTROPHILS % (AUTO) 76 % (42-75); PLATELET COUNT 345 10^3/uL (130-400); WHITE BLOOD COUNT 9.7 10^3/uL (4.3-11.0)
[2021-12-24 06:14] LABS: ALBUMIN 3.6 GM/DL (3.2-4.5)
[2021-12-24 06:15] LABS: POTASSIUM 3.5 MMOL/L (3.6-5.0)
[2021-12-24 06:16] LABS: CALCIUM 8.8 MG/DL (8.5-10.1)
[2021-12-24 06:17] LABS: TOTAL PROTEIN 6.8 GM/DL (6.4-8.2)
[2021-12-24 06:19] LABS: BILIRUBIN,TOTAL 0.5 MG/DL (0.1-1.0)
[2021-12-24 06:20] LABS: CREATININE SERUM 1.13 MG/DL (0.60-1.30)
[2021-12-24] MEDS: NS IV 1000 ML 1,000 ML IV SCH (06:39)
[2021-12-24 08:08] VITALS: BP 167/63
[2021-12-24] MEDS: FLUDROCORTISONE 0.1 MG (FLORINEF) TAB PO SCH ×2 (09:28→22:32)
[2021-12-24] MEDS: SENNOSIDES 8.6 MG (SENOKOT) TAB PO SCH ×2 (09:28→22:32)
[2021-12-24] MEDS: DOCUSATE SODIUM 100 MG (COLACE) CAP PO SCH ×2 (09:28→22:32)
[2021-12-24] MEDS: ALPRAZolam 0.25 MG (XANAX) TAB PO PRN ×3 (11:23→23:31)
[2021-12-24 16:00] VITALS: BP 154/96
[2021-12-24 19:01] VITALS: BP 167/96
[2021-12-24] MEDS: cefTRIAXone 1 GM PRE-MIX 50 ML IV SCH ×2 (22:32→23:47)
[2021-12-24] MEDS: ENOXAPARIN 40 MG/0.4 ML (LOVENOX) SYR SC SCH (22:32)
[2021-12-25] MEDS ORDERED: WATER (STERILE) FOR INJ 10 ML BTL INJ SCH (01:15)
[2021-12-25] MEDS ORDERED: ZIPRASIDONE 20 MG INJ (GEODON) VIAL IM PRN (01:15)
[2021-12-25] MEDS ORDERED: LORazepam INJ 2 MG/ML (ATIVAN) VIAL IM PRN (01:15)
[2021-12-25 04:00] VITALS: BP 155/80
[2021-12-25 07:45] VITALS: BP 154/80
--- NOTE | 2021-12-25 09:23 | Progress Note - Hospitalist ---
Subjective HPI/CC On Admission Date Seen by Provider: December 25, 2021 Chief Complaint: Orthostatic Hypotension HPI: This is a 51 year old White Female deaf patient of [facility] who presented to [place] [facility] with Syncope and multiple episodes of it. She does have a history of Orthostatic Hypotension she takes Florinef for. She appeared to be dehydrated with a Creatinine of 1.5 so she was admitted and given IV fluids. I will restart her Florinef and ambulate. Subjective/Events-last exam Pt had a lot of issues last night requiring Ativan but didn't require Geodon for psychotic episode Seems like she is older than stage at of 51 and likely some sort of dementia or drug related cognition issues Will continue to be supportive Review of Systems General: Fatigue, Malaise Neurological: Weakness, Confusion Focused Exam Lactate Level 12/23/21 18:00: Lactic Acid Level 1.86 Objective Exam Vital Signs Vital Signs Date Time Temp Pulse Resp B/P (MAP) Pulse Ox O2 Delivery O2 Flow Rate FiO2 12/26/21 04:36 36.4 80 20 149/92 (111) 96 Room Air 12/24/21 19:55 2.00 Capillary Refill : Less Than 3 Seconds General Appearance: No Apparent Distress, WD/WN, Chronically ill Respiratory: Lungs Clear, Normal Breath Sounds Cardiovascular: Regular Rate, Rhythm Neurologic/Psychiatric: Alert, Disoriented Results/Procedures Lab Laboratory Tests 12/25/21 09:43 Patient resulted labs reviewed. Assessment/Plan Assessment and Plan Assess & Plan/Chief Complaint Assessment: Syncope Orthostatic hypotension COPD Smoker Acute kidney injury Dehydration Plan: IV fluids Florinef Telemetry 12/25/2021: Supportive care Monitor closely Discharge hopefully tomorrow Social work consult Diagnosis/Problems Diagnosis/Problems (1) Symptomatic hypotension Status: Acute (2) Syncope Status: Acute KYLE FRENCH DO December 25, 2021 09:23
[2021-12-25] MEDS ORDERED: MONTELUKAST 10 MG (SINGULAIR) TAB PO ONE (09:30)
[2021-12-25] MEDS: DOCUSATE SODIUM 100 MG (COLACE) CAP PO SCH ×2 (09:45→20:41)
[2021-12-25] MEDS: ALPRAZolam 0.25 MG (XANAX) TAB PO PRN ×2 (09:45→17:37)
[2021-12-25] MEDS: FLUDROCORTISONE 0.1 MG (FLORINEF) TAB PO SCH (09:45)
[2021-12-25] MEDS: LORATADINE (CLARITIN) 10 MG TAB PO SCH (09:50)
[2021-12-25] MEDS: SENNOSIDES 8.6 MG (SENOKOT) TAB PO SCH ×2 (09:50→20:41)
[2021-12-25 09:52] LABS: BASOPHILS % (AUTO) 0 % (0-10); EOSINOPHILS # (AUTO) 0.2 10^3/uL (0.0-0.3); EOSINOPHILS % (AUTO) 2 % (0-10); HEMATOCRIT 31 % (35-52); HEMOGLOBIN 10.4 g/dL (11.5-16.0); LYMPHOCYTES # (AUTO) 1.6 10^3/uL (1.0-4.0); LYMPHOCYTES % (AUTO) 21 % (12-44); MEAN CORPUSCULAR HEMOGLOBIN 31 pg (25-34); MEAN CORPUSCULAR HGB CONC 33 g/dL (32-36); MEAN CORPUSCULAR VOLUME 93 fL (80-99); MONOCYTES # (AUTO) 0.5 10^3/uL (0.0-1.0); MONOCYTES % (AUTO) 6 % (0-12); NEUTROPHILS # (AUTO) 5.3 10^3/uL (1.8-7.8); NEUTROPHILS % (AUTO) 70 % (42-75); PLATELET COUNT 313 10^3/uL (130-400); WHITE BLOOD COUNT 7.7 10^3/uL (4.3-11.0)
[2021-12-25 10:10] LABS: ALBUMIN 3.6 GM/DL (3.2-4.5); POTASSIUM 3.2 MMOL/L (3.6-5.0)
[2021-12-25 10:11] LABS: CALCIUM 9.3 MG/DL (8.5-10.1)
[2021-12-25 10:13] LABS: TOTAL PROTEIN 6.8 GM/DL (6.4-8.2)
[2021-12-25 10:15] LABS: BILIRUBIN,TOTAL 0.5 MG/DL (0.1-1.0)
[2021-12-25 10:16] LABS: CREATININE SERUM 0.81 MG/DL (0.60-1.30)
[2021-12-25 11:20] VITALS: BP 165/99
[2021-12-25] MEDS ORDERED: PROP80CA4 PO (14:24)
[2021-12-25] MEDS ORDERED: ONDA4TAB11 PO (14:25)
[2021-12-25] MEDS ORDERED: FLDR.1T PO (14:27)
[2021-12-25] MEDS ORDERED: BUSP15TA60 PO (14:28)
[2021-12-25] MEDS ORDERED: OMEP20CA18 PO (14:29)
[2021-12-25] MEDS ORDERED: CHOL500050 PO (14:29)
[2021-12-25] MEDS ORDERED: ACET-2267 PO (14:30)
[2021-12-25 15:52] VITALS: BP 179/99
[2021-12-25] MEDS ORDERED: ONDANSETRON 4 MG (ZOFRAN) ORAL DISSOLVE TAB PO PRN (16:30)
[2021-12-25] MEDS ORDERED: ACETAMINOPHEN 500 MG TAB (TYLENOL) PO PRN (16:30)
[2021-12-25 19:12] VITALS: BP 148/94
[2021-12-25] MEDS: GABAPENTIN 600 MG (NEURONTIN) TAB PO SCH (20:41)
[2021-12-25] MEDS: cefTRIAXone 1 GM PRE-MIX 50 ML IV SCH (20:41)
[2021-12-25] MEDS: busPIRone 15 MG (BUSPAR) TABLET PO SCH (20:41)
[2021-12-25] MEDS: ENOXAPARIN 40 MG/0.4 ML (LOVENOX) SYR SC SCH (20:41)
[2021-12-25] MEDS ORDERED: traZODone 150 MG (DESYREL) TABLET PO SCH (21:00)
[2021-12-26 00:12] VITALS: BP 153/85
[2021-12-26 04:36] VITALS: BP 149/92
[2021-12-26 05:44] LABS: BASOPHILS % (AUTO) 0 % (0-10); EOSINOPHILS # (AUTO) 0.2 10^3/uL (0.0-0.3); EOSINOPHILS % (AUTO) 2 % (0-10); HEMATOCRIT 34 % (35-52); HEMOGLOBIN 11.3 g/dL (11.5-16.0); LYMPHOCYTES # (AUTO) 2.1 10^3/uL (1.0-4.0); LYMPHOCYTES % (AUTO) 26 % (12-44); MEAN CORPUSCULAR HEMOGLOBIN 31 pg (25-34); MEAN CORPUSCULAR HGB CONC 33 g/dL (32-36); MEAN CORPUSCULAR VOLUME 92 fL (80-99); MEAN PLATELET VOLUME 10.1 fL (9.0-12.2); MONOCYTES # (AUTO) 0.5 10^3/uL (0.0-1.0); MONOCYTES % (AUTO) 6 % (0-12); NEUTROPHILS # (AUTO) 5.4 10^3/uL (1.8-7.8); NEUTROPHILS % (AUTO) 66 % (42-75); PLATELET COUNT 319 10^3/uL (130-400); WHITE BLOOD COUNT 8.2 10^3/uL (4.3-11.0)
[2021-12-26 06:08] LABS: ALBUMIN 3.5 GM/DL (3.2-4.5); BILIRUBIN,TOTAL 0.4 MG/DL (0.1-1.0); CALCIUM 9.1 MG/DL (8.5-10.1); CREATININE SERUM 0.77 MG/DL (0.60-1.30); TOTAL PROTEIN 6.9 GM/DL (6.4-8.2)
[2021-12-26 07:41] VITALS: BP 179/90
[2021-12-26] MEDS ORDERED: MONTELUKAST 10 MG (SINGULAIR) TAB PO SCH (08:00)
[2021-12-26] MEDS: GABAPENTIN 600 MG (NEURONTIN) TAB PO SCH (08:36)
[2021-12-26] MEDS: DOCUSATE SODIUM 100 MG (COLACE) CAP PO SCH (08:36)
[2021-12-26] MEDS: busPIRone 15 MG (BUSPAR) TABLET PO SCH (08:36)
[2021-12-26] MEDS: LORATADINE (CLARITIN) 10 MG TAB PO SCH (08:36)
[2021-12-26] MEDS: SENNOSIDES 8.6 MG (SENOKOT) TAB PO SCH (08:46)
[2021-12-26] MEDS ORDERED: PANTOPRAZOLE 20 MG TABLET (PROTONIX) PO SCH (09:00)
[2021-12-26] MEDS ORDERED: FLUDROCORTISONE 0.1 MG (FLORINEF) TAB PO SCH (09:00)
[2021-12-26] MEDS ORDERED: PARoxetine 20 MG (PAXIL) TAB PO SCH (09:00)
[2021-12-26] MEDS ORDERED: PROPRANOLOL ER 80 MG CAP (INDERAL LA) PO SCH (09:00)
[2021-12-26] MEDS ORDERED: VITAMIN D3 125 MCG (5,000 UNITS) CAPSULE PO SCH (09:00)
[2021-12-26] MEDS ORDERED: MONT-40 PO (09:58)
--- NOTE | 2021-12-26 09:58 | Discharge Summary ---
Discharge Summary Hospital Course Was the Problem List Reviewed?: Yes Problems/Dx: (1) Symptomatic hypotension Status: Acute (2) Syncope Status: Acute Hospital Course Date of Admission: December 23, 2021 at 22:40 Admission Diagnosis : Family Physician/Provider[facility] [place] Date of Discharge: 12/26/21 Discharge Diagnosis: Syncope, deafness, right ankle pain, acute psychosis Hospital Course: Pt had an uneventful but lengthy hospital course after she was admitted for observation for syncope. She did have an episode of significant altered mental status requiring Ativan for agitation. All labs remain normal. Normal sinus rhythm on telemetry. No evidence of any issues. PT and OT were ordered and evaluated her to be stable for discharge. Labs and Pending Lab Test: Laboratory Tests 12/26/21 05:04: White Blood Count 8.2, Red Blood Count 3.69L, Hemoglobin 11.3L, Hematocrit 34L, Mean Corpuscular Volume 92, Mean Corpuscular Hemoglobin 31, Mean Corpuscular Hemoglobin Concent 33, Red Cell Distribution Width 13.3, Platelet Count 319, Mean Platelet Volume 10.1, Immature Granulocyte % (Auto) 1, Neutrophils (%) (Auto) 66, Lymphocytes (%) (Auto) 26, Monocytes (%) (Auto) 6, Eosinophils (%) (Auto) 2, Basophils (%) (Auto) 0, Neutrophils # (Auto) 5.4, Lymphocytes # (Auto) 2.1, Monocytes # (Auto) 0.5, Eosinophils # (Auto) 0.2, Basophils # (Auto) 0.0, Immature Granulocyte # (Auto) 0.0, Sodium Level 142, Potassium Level 3.0L, Chloride Level 106, Carbon Dioxide Level 23, Anion Gap 13, Blood Urea Nitrogen 10, Creatinine 0.77, Estimat Glomerular Filtration Rate 93, BUN/Creatinine Ratio 13, Glucose Level 83, Calcium Level 9.1, Corrected Calcium 9.5, Total Bilirubin 0.4, Aspartate Amino Transf (AST/SGOT) 18, Alanine Aminotransferase (ALT/SGPT) 19, Alkaline Phosphatase 91, Total Protein 6.9, Albumin 3.5 Microbiology 12/23/21 Blood Culture - Preliminary, Resulted No growth 12/23/21 Urine Culture - Final, Complete NO GROWTH Home Meds Active Reported Tylenol Extra Strength (Acetaminophen) 500 Mg Tablet 1,000 Mg PO Q8H PRN TAKES 2 (500MG) TAB Vitamin D3 (Cholecalciferol (Vitamin D3)) 125 Mcg (5000 Unit) Capsule 125 Mcg PO DAILY Omeprazole 20 Mg Capsule.dr 20 Mg PO DAILY Buspirone HCl 15 Mg Tablet 15 Mg PO BID Fludrocortisone Acetate 0.1 Mg Tab 0.1 Mg PO DAILY Ondansetron Odt (Ondansetron) 4 Mg Tab.rapdis 4 Mg PO TID PRN Propranolol HCl ER (Propranolol HCl) 80 Mg Cap.sa.24h 80 Mg PO DAILY Trazodone HCl 150 Mg Tablet 150 Mg PO HS Gabapentin 600 Mg Tablet 600 Mg PO TID Tizanidine HCl 4 Mg Tablet 4 Mg PO TID Paxil (Paroxetine HCl) 40 Mg Tablet 40 Mg PO DAILY Assessment/Pt Instructions PCP in 1 Discharge Planning: <30 minutes discharge planning Discharge Instructions Discharge Diet: No Restrictions Discharge Physical Examination Vital Signs Vital Signs Date Time Temp Pulse Resp B/P (MAP) Pulse Ox O2 Delivery O2 Flow Rate FiO2 12/26/21 08:42 Room Air 12/26/21 07:41 36.8 69 18 179/90 (119) 94 12/24/21 19:55 2.00 General Appearance: No Apparent Distress, WD/WN, Chronically ill Neurologic/Psychiatric: Alert, Oriented x3 Allergies: Coded Allergies: No Known Drug Allergies (Unverified , 06/26/14) Discharge Summary Date of Admission December 23, 2021 at 22:40 Date of Discharge Discharge Date: December 26, 2021 Admission Diagnosis Assessment: Syncope Orthostatic hypotension COPD Smoker Acute kidney injury Dehydration Plan: IV fluids Florinef Telemetry Discharge Diagnosis Assessment: Syncope Orthostatic hypotension COPD Smoker Acute kidney injury Dehydration Plan: IV fluids Florinef Telemetry 12/25/2021: Supportive care Monitor closely Discharge hopefully tomorrow Social work consult (1) Symptomatic hypotension Status: Acute (2) Syncope Status: Acute KYLE FRENCH DO December 26, 2021 09:58
--- NOTE | 2021-12-26 10:13 | Diagnostic Imaging Report ---
INDICATION: Ankle pain. COMPARISON: 12/23/2021. FINDINGS: The medullary nail with interlocking screws remains in good position with no hardware complications noted in the tibia. The ankle mortise shows good alignment with smooth surfaces. The fibula is intact. No significant arthritic changes. No acute abnormalities. IMPRESSION: Stable appearing right ankle when compared with 12/23/2021. Dictated by: Dictated on workstation # [id number]
--- NOTE | 2021-12-26 11:05 | Physical Therapy Evaluation ---
PT Evaluation-General Medical Diagnosis Admission Date December 23, 2021 at 22:40 Medical Diagnosis: syncope, right ankle pain Onset Date: December 23, 2021 Therapy Diagnosis Therapy Diagnosis: impaired mobility, pain Height/Weight Height (Feet): 5 Height (Inches): 5 Weight (Pounds): 175 Precautions Precautions/Isolations: Fall Prevention, Standard Precautions Referral Physician: Corrie Sullivan DO Reason for Referral: Evaluation/Treatment Medical History Additional Medical History Past Medical History Surgeries: Section, Ear Surgery, Gallbladder, Orthopedic, Tubal Ligation Asthma, Pneumonia, COPD 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 Prior Prior Level of Function SCALE: Activities may be completed with or without assistive devices. 6-Gczjxrpwqw-sdpfhpf completes the activity by him/herself with no assistance from a helper. 5-Set-up or Clean-up Assistance-helper sets up or cleans up; patient completes activity. [place] assists only prior to or following the activity. 4-Supervision or Touching Assistance-helper provides verbal cues and/or touching/steadying and/or contact guard assistance as patient completes activity. Assistance may be provided throughout the activity or intermittently. 3-Partial/Moderate Assistance-helper does LESS THAN HALF the effort. [place] lifts, holds or supports trunk or limbs, but provides less than half the effort. 2-Substantial/Maximal Assistance-helper does MORE THAN HALF the effort. [place] lifts or holds trunk or limbs and provides more than half the effort. 6-Qnsczlpzw-nxkauv does ALL the effort. Patient does none of the effort to complete the activity. Or, the assistance of 2 or more helpers is required for the patient to complete the activity. If activity was not attempted, code reason: 7-Patient Refused. 9-Not Applicable-not attempted and the patient did not perform the activity before the current illness, exacerbation or injury. 10-Not Attempted due to Environmental Limitations-(lack of equipment, weather restraints, etc.). 88-Not Attempted due to Medical Conditions or Safety Concerns. Bed Mobility: 6 Transfers (B,C,W/C): 6 Gait: 6 Stairs: 6 Indoor Mobility (Ambulation): Independent Stairs: Independent Prior Devices Use: Walker PT Evaluation-Current Subjective Patient in bed pre tx, agrees to PT, states she has moderate pain in right ankle. Patient has slight swelling on right lateral ankle, tenderness to palpation just inferior to the lateral malleolus, possible lateral ankle sprain. Pt/Family Goals "to go home" Objective Patient Orientation: Person, Place, Situation ROM/Strength ROM Lower Extremities WNL except limited in right ankle due to pain Sensory Vision: Functional Hearing: Impaired Sensation Right Lower Extremit: Intact Sensation Left Lower Extremity: Intact Transfers Roll Left to Right (QC): 6 Sit to Lying (QC): 6 Lying to Sitting/Side of Bed(Q: 6 Sit to Stand (QC): 4 Chair/Mwj-ya-Qontr Xfer(QC): 4 SBA for sit to stand and transfers Gait Does the Patient Walk?: Yes Mode of Locomotion: Walk Anticipated Mode of Locomotion: Walk Walk 10 feet (QC): 4 Distance: 30' Gait Assistive Device: FWW Comments/Gait Description SBA for ambulating using a rolling walker, she has decreased weight bearing on the right LE Balance Sitting Static: Normal Sitting Dynamic: Normal Standing Static: Good Standing Dynamic: Good Treatment HEP, trained patient on AROM of the right ankle to promote healing Assessment/Needs Patient in bed post tx with nurse call, phone, tray, all needs met. She will need assist to get up the stairs to her apartment, she says her son can maybe help her, encouraged her to contact him to help. Rehab Potential: Fair PT [facility] Goals Asset Protection Assistant Goals PT [facility] Goals Time Frame: January 02, 2022 Roll Left & Right (QC): 6 Sit to Lying (QC): 6 Lying-Sitting on Side/Bed(QC): 6 Sit to Stand (QC): 6 Chair/Duw-xj-Dbmul Xfer(QC): 6 Walk 10 feet (QC): 6 Walk 50ft with 2 Turns (QC): 6 1 Step (curb) (QC): 3 4 Steps (QC): 3 12 Steps (QC): 3 PT Plan Problem List Problem List: Activity Tolerance, Functional Strength, Safety, Balance, Gait, Transfer, ROM Treatment/Plan Treatment Plan: Continue Plan of Care Treatment Plan: Education, Functional Activity Melonie, Functional Strength, Gait, Safety, Therapeutic Exercise, Transfers Treatment Duration: January 02, 2022 Frequency: 6 times per week Estimated Hrs Per Day: .25 hour per day Patient and/or Family Agrees t: Yes Safety Risks/Education Patient Education: Gait Training, Transfer Techniques, Correct Positioning, Safety Issues Teaching Recipient: Patient Teaching Methods: Demonstration, Discussion Response to Teaching: Reinforcement Needed Discharge Recommendations Plan Patient will perform bed mobility and transfer training, balance and endurance training, functional strengthening, stair training, gait training, and education, to improve functional mobility and independence at home. Therapy Discharge Recommendati: Home & Family, Post Acute PT Time/GCodes Time In: 1026 Time Out: 1039 Total Billed Treatment Time: 13 Total Billed Treatment 1 visit EVOMAR COLEY PT December 26, 2021 11:05
--- NOTE | 2021-12-26 11:20 | Occupational Therapy Eval ---
OT Evaluation-General/PLF Medical Diagnosis Admission Date December 23, 2021 at 22:40 Medical Diagnosis: syncope, right ankle pain Onset Date: December 23, 2021 Therapy Diagnosis Therapy Diagnosis: reduced adl status Height/Weight Height (Feet): 5 Height (Inches): 5 Weight (Pounds): 175 Precautions Precautions/Isolations: Fall Prevention, Standard Precautions Referral Physician: Corrie Sullivan DO Referral Reason: Evaluation/Treatment Medical History Current History Pt presented to [facility] ER following multiple episodes of syncope. History of orthostatic hypotension. Per report, she appeared to be dehydrated. Per patient, she lives in an apartment, 1 flight of stairs she has to manage. She was indep with adls and minimally managed iadls "i do the bare minimum to get by." She walks to/from the grocery store as she lives right behind [place]. She owns a walker but was not using prior to admission. Reviewed History: Yes Social History Home: Apartment Current Living Status: Alone Entry Into Home: Stairs With Railing ADL-Prior Level of Function SCALE: Activities may be completed with or without assistive devices. 8-Gtpeaaygjn-jsygcim completes the activity by him/herself with no assistance from a helper. 5-Set-up or Clean-up Assistance-helper sets up or cleans up; patient completes activity. Morning Sun assists only prior to or following the activity. 4-Supervision or Touching Assistance-helper provides verbal cues and/or touching/steadying and/or contact guard assistance as patient completes activity. Assistance may be provided throughout the activity or intermittently. 3-Partial/Moderate Assistance-helper does LESS THAN HALF the effort. Morning Sun lifts, holds or supports trunk or limbs, but provides less than half the effort. 2-Substantial/Maximal Assistance-helper does MORE THAN HALF the effort. Morning Sun lifts or holds trunk or limbs and provides more than half the effort. 4-Mslsajhpg-cpuuez does ALL the effort. Patient does none of the effort to co mplete the activity. Or, the assistance of 2 or more helpers is required for the patient to complete the activity. If activity was not attempted, code reason: 7-Patient Refused. 9-Not Applicable-not attempted and the patient did not perform the activity before the current illness, exacerbation or injury. 10-Not Attempted due to Environmental Limitations-(lack of equipment, weather restraints, etc.). 88-Not Attempted due to Medical Conditions or Safety Concerns. Self Care: Independent Functional Cognition: Unknown DME/Equipment: Bath Chair, Grab Bars, Tub/Shower Drive Self: No OT Current Status Subjective Pt reports "moderate" pain in R ankle. Slight swelling observed on right lateral ankle, tenderness to palpation just inferior to the lateral malleolus, possible lateral ankle sprain. Appearance Pt returned to supine in bed, all needs within reach. Mental Status/Objective Patient Orientation: Person, Place, Situation Attachments: IV, Telemetry Current Hearing Aids: Yes Hand Dominance: Right ADL-Treatment Eating (QC): 6 Upper Body Dressing (QC): 6 Toileting Hygiene (QC): 4 Supine<>sit: indep. Sit<>stand: SBA. Post demonstration on bearing more weight through UE's, pt able to ambulate within room with use of walker and limited WB on RLE. No LOB, supervision for safety. She ambulated to/from bathroom and able to lower/stand from toilet with use of grab bars. Marylu care and clothing management completed in standing with supervision. She stood at sink to complete grooming tasks with supervision. Pt reports that she has a full flight of stairs she will need to manage in order to get into her apartment. She states that her son might be able to help. Reinforcement to reach out to family for help with stairs and groceries until pain in ankle resolves. Education OT Patient Education: Correct positioning, Modified ADL techniques, Purpose of tx/functional activities, Reviewed precautions, Safety issues, Transfer techniques Teaching Recipient: Patient Teaching Methods: Demonstration, Discussion Response to Teaching: Verbalize Understanding, Return Demonstration, Reinforcement Needed OT Assistant Signal Maintainer Goals Assistant Signal Maintainer Goals Time Frame: December 30, 2021 Toileting Hygiene (QC): 6 Shower/Bathe Self (QC): 5 Lower Body Dressing (QC): 5 On/Off Footwear (QC): 4 1=Demonstrate adherence to instructed precautions during ADL tasks. 2=Patient will verbalize/demonstrate understanding of assistive devices/modifications for ADL. 3=Patient will improve strength/tolerance for activity to enable patient to perform ADL's. OT Education/Plan Problem List/Assessment Assessment: Decreased Activ Tolerance, Decreased Safety Aware, Impaired Funct Balance, Impaired I ADL's, Impaired Self-Care Skills Discharge Recommendations Plan/Recommendations: Continue POC Therapy Discharge Recommendati: Home & Family Target Placement Anticipate home with family support pending progress Treatment Plan/Plan of Care Treatment,Training & Education: Yes Patient would benefit from OT for education, treatment and training to promote independence in ADL's, mobility, safety and/or upper extremity function for ADL's. Plan of Care: ADL Retraining, Functional Mobility, Group Exercise/Act as Ind, UE Funct Exercise/Act Treatment Duration: December 30, 2021 Frequency: 3 times per week (3-5x/week) Estimated Hrs Per Day: .25 hour per day Agreement: Yes Rehab Potential: Fair Time/GCodes Start Time: 10:27 Stop Time: 10:39 Total Time Billed (hr/min): 12 Billed Treatment Time 1 visit Parvin Ward OT December 26, 2021 11:20
[2021-12-26 11:21] VITALS: BP 140/77
[2021-12-26 13:23] VITALS: BP 140/77
== END 2021-12-26 13:24 | disposition home or self-care (01) ==
LOC: EDUNIT# 17:54 → ER 17:55 → 4TH 22:40 → INTOOBSV 22:40 → 4TH 12-24 01:15
PROVIDERS: ADMIT Internal Medicine; ATTEND Internal Medicine
DX: I95.1 Orthostatic hypotension (principal); F17.210 Nicotine dependence, cigarettes, uncomplicated; J44.9 Chronic obstructive pulmonary disease, unspecified; E86.0 Dehydration; N17.9 Acute kidney failure, unspecified
CPT/HCPCS: 70450; 71045; 71275; 72125; 73523; 73552; 73590; 73610 ×2; 74177; 80053 ×4; 80306; 81000; 82150; 82550; 82553; 82607; 82728; 82746; 82947; 83540; 83550; 83605; 83690; 83735; 83874; 83880; 84145; 84443; 84484; 84702; 84703; 85025 ×4; 85379; 85610; 85652; 85730; 86141; 86900; 86901; 87040; 87088; 87636; 93005; 93041; 94760; 97161; 97165; 99284; G0480; 36415; 80320; 96374; 96375; G0378

== ENCOUNTER 2023-04-23 22:44 | Inpatient (IN) | payer MEDICARE, MEDICAID ==
[~2023-04-23] VITALS: Ht 162.6 cm; Wt 88.8 kg
[~2023-04-23 22:44] MED LIST changes: +ACET-2267 PO; +BUSP15TA60 PO; +CHOL500050 PO; +MONT-40 PO; +OMEP20CA18 PO; +ONDA4TAB11 PO; +PARO-135 PO; -PARO40TA PO; -POTA10CA43 PO; +POTA10CA84 PO
[2023-04-23] MEDS ORDERED: QUET50TA23 PO (22:51)
[2023-04-23] MEDS ORDERED: TRAZODONE (22:51)
[2023-04-23] MEDS ORDERED: ATOR40TA70 PO (22:51)
[2023-04-23] MEDS ORDERED: CLON0.5T4 PO (22:51)
[2023-04-23] MEDS ORDERED: FLUO40CA PO (22:51)
[2023-04-23] MEDS ORDERED: ACHD5005 PO (22:51)
[2023-04-23] MEDS ORDERED: BUSP30TA2 PO (22:51)
[2023-04-23] MEDS ORDERED: BACL10TA PO (22:51)
[2023-04-23 23:08] LABS: ABG BASE EXCESS -4.3 MMOL/L (-2.5-2.5); ABG OXYGEN SATURATION 95 % (94-100); ABG PCO2 45 MMHG (35-45); ABG PO2 77 MMHG (79-93); ABG TCO2 22.6 MMOL/L (21.0-31.0)
[2023-04-23 23:11] LABS: ABG PH 7.29 (7.37-7.43); ALLENS TEST YES-POS; INSPIRED O2 2L; PATIENT TEMP 36.9; VENTILATOR NO
--- NOTE | 2023-04-23 23:11 | ED Neurological Problem ---
General Chief Complaint: Neuro-Stroke Like Symptoms Stated Complaint: POSS STROKE Source: EMS History of Present Illness Date Seen by Provider: Apr 23, 2023 Time Seen by Provider: 22:55 Initial Comments Patient is a 52-year-old female brought to the emergency department by EMS concern for stroke. And neighbor found the patient's door open and went in and found her on the floor. Neighbor had noted that she brought groceries in around 2 hours ago however last known well time cannot be pinpointed. Patient has a long history of psychiatric illness on multiple sedating medications. EMS did attempt Narcan x2 without any response. EMS noted she possibly had asymmetric pupils. She has been nonverbal since being picked up by EMS. Slightly hypertensive. Not tachycardic. She has had continuous rhythmic jerking of her lower extremities. Muscle fasciculations noted in the thighs bilaterally. She does withdraw in all 4 extremities and has almost spastic tone. She does seem to recognize her name and track around the room. When attempting to look in her mouth she bites the tongue depressor. Timing/Duration: other (unknown) Allergies and Home Medications Allergies Coded Allergies: No Known Drug Allergies (Unverified , 06/26/14) Patient Home Medication List Home Medication List Reviewed: Yes Acetaminophen (Tylenol Extra Strength) 500 Mg Tablet, 1,000 MG PO Q8H PRN for PAIN-MILD (1-4), (Reported) Entered as Reported by: SYLVIE HAINES on 12/25/21 1430 Atorvastatin Calcium (Atorvastatin Calcium) 40 Mg Tablet, (Reported) Entered as Reported by: LILIAN SCHAFER on 04/23/232250 Last Action: New Order Baclofen (Baclofen) 10 Mg Tablet, (Reported) Entered as Reported by: LILIAN SCHAFER on 04/23/232250 Last Action: New Order Buspirone HCl (Buspirone HCl) 15 Mg Tablet, 15 MG PO BID, (Reported) Entered as Reported by: SYLVIE HAINES on 12/25/21 1428 Buspirone HCl (Buspirone HCl) 30 Mg Tablet, (Reported) Entered as Reported by: LILIAN SCHAFER on 04/23/232250 Last Action: New Order Cholecalciferol (Vitamin D3) (Vitamin D3) 125 Mcg (5000 Unit) Capsule, 125 MCG PO DAILY, (Reported) Entered as Reported by: SYLVIE HAINES on 12/25/21 1429 Clonazepam (Clonazepam) 0.5 Mg Tablet, (Reported) Entered as Reported by: LILIAN SCHAFER on 04/23/232250 Last Action: New Order Fludrocortisone Acetate (Fludrocortisone Acetate) 0.1 Mg Tab, 0.1 MG PO DAILY, (Reported) Entered as Reported by: SYLVIE HAINES on 12/25/21 142 Fluoxetine HCl (Fluoxetine HCl) 40 Mg Capsule, (Reported) Entered as Reported by: LILIAN SCHAFER on 04/23/232250 Last Action: New Order Gabapentin (Gabapentin) 600 Mg Tablet, 600 MG PO TID, (Reported) Entered as Reported by: BEAU ARCHER on 07/21/211817 Hydrocodone/Acetaminophen (Hydrocodone-Acetamin 5-325 mg) 5 Mg-325 Mg Tablet, (Reported) Entered as Reported by: LILIAN SCHAFER on 04/23/232250 Last Action: New Order Montelukast Sodium (Montelukast Sodium) 10 Mg Tablet, 10 MG PO DAILY@0800 Prescribed by: KYLE FRENCH on 12/26/21 0958 Omeprazole (Omeprazole) 20 Mg Capsule.dr, 20 MG PO DAILY, (Reported) Entered as Reported by: SYLVIE HAINES on 12/25/21 142 Ondansetron (Ondansetron Odt) 4 Mg Tab.rapdis, 4 MG PO TID PRN for NAUSEA/VOMITING, (Reported) Entered as Reported by: SYLVIE HAINES on 12/25/21 142 Paroxetine HCl (Paxil) 40 Mg Tablet, 40 MG PO DAILY, (Reported) Entered as Reported by: BEAU ARCHER on 07/21/211817 Propranolol HCl (Propranolol HCl ER) 80 Mg Cap.sa.24h, 80 MG PO DAILY, (Reported) Entered as Reported by: SYLVIE HAINES on 12/25/21 142 Quetiapine Fumarate (Quetiapine Fumarate) 50 Mg Tablet, (Reported) Entered as Reported by: LILIAN SCHAFER on 04/23/232250 Last Action: New Order Tizanidine HCl (Tizanidine HCl) 4 Mg Tablet, 4 MG PO TID, (Reported) Entered as Reported by: BEAU ARCHER on 07/21/211817 Trazodone HCl (Trazodone HCl) 150 Mg Tablet, 150 MG PO HS, (Reported) Entered as Reported by: BEAU ARCHER on 07/21/211817 [Trazodone] , (Reported) Entered as Reported by: LILIAN SCHAFER on 04/23/23 2251 Last Action: New Order Review of Systems Review of Systems Constitutional: see HPI Unable to obtain HPI, ROS secondary to non verbal/poor responsiveness Past Xakqafh-Hoduqc-Tfpwom Hx Patient Social History Tobacco Use?: Yes Substance use?: No Alcohol Use?: No Pt feels they are or have been: No Immunizations Up To Date First/Initial COVID19 Vaccinat: UNSURE OF DATE Second COVID19 Vaccination James: UNSURE OF DATE. 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 History: Tubal Ligation, Menopausal Genitourinary: Yes Kidney Infection, UTI-Chronic Gastrointestinal: Yes Gastroesophageal Reflux Musculoskeletal: Yes (R TIB/FIB FX/ORIF;L FOREARM FX/ORIF;POOR AMBULATION-USES WALKER;CHR NECK PN) Chronic Back Pain, Fractures Endocrine: No HEENT: Yes Hearing Impairment: Hard of Hearing, Bilateral Hearing Aide Cancer: No Psychosocial: Yes Anxiety, Depression Integumentary: Yes (EXTENSIVE HISTORY OF MRSA WITH I&D'S) Physical Exam Vital Signs Vital Signs - First Documented 04/23/23 22:47 Temp 36.9 Pulse 72 Resp 16 B/P (MAP) 146/117 (127) Pulse Ox 96 O2 Delivery Nasal Cannula O2 Flow Rate 2.00 Capillary Refill : Height, Weight, BMI Height: 5'5" Weight: 175lbs. oz. 79.474959ps; 32.87 BMI Method:Stated General Appearance: WD/WN, no apparent distress HEENT: other (pupils equal 3-4mm; moist mucous membranes) Neck: normal inspection Respiratory: no respiratory distress, other (coarse upper respiratory breath sounds) Cardiovascular: regular rate, rhythm Gastrointestinal: non tender, soft Extremities: other (1+ edema bilateral LE) Neurologic/Psychiatric: alert Crainal Nerves: normal hearing; No normal speech; PERRL; No abnormal eye position, No abnormal pupil position; abnormal speech; No facial asymmetry, No facial droop, No gaze palsy Motor/Sensory: no sensory deficit Skin: normal color, other (abrasions noted to bilateral knees - superficial) Stroke Onset of Symptoms Date of Onset of Symptoms: Apr 23, 2023 Onset of Symptoms: No Symptoms onset unknown: Yes NIH Stroke Scale Assessment Select: Initial Level of Consciousness: 1=Aroused by mild stimuli (1), Level of Consciousness-Questions: 2=Answer neither question (2), LOC Commands: 2=Performs neither task (2), Gaze: Normal (0), Facial Movement (Facial Paresis): 0=Normal symmetrical mnt (0), Sensory: 0=Normal:no loss (0), Best Language: 3=Mute (3), Extinction & Inattention: 0=No abnormality (0), Total: 8 Stroke Thrombolytic Exclusion TPA Contraindication: Yes Progress/Results/Core Measures Results/Orders Lab Results Laboratory Tests Test 04/23/23 22:58 04/23/23 23:17 04/23/23 23:20 04/23/23 23:22 Range/Units Prothrombin Time 12.9 12.2-14.7 SEC INR Comment 1.0 0.8-1.4 Activated Partial Thromboplast Time 30 24-35 SEC D-Dimer 0.87 H 0.00-0.49 UG/ML Blood Gas Puncture Site LEFT RADIAL Blood Gas Patient Temperature 36.9 Arterial Blood pH 7.29 *L 7.37-7.43 Arterial Blood Partial Pressure CO2 45 35-45 MMHG Arterial Blood Partial Pressure O2 77 L 79-93 MMHG Arterial Blood HCO3 21 L 23-27 MMOL/L Arterial Blood Total CO2 22.6 21.0-31.0 MMOL/L Arterial Blood Oxygen Saturation 95 94-100 % Arterial Blood Base Excess -4.3 L -2.5-2.5 MMOL/L Daniel Test YES-POS Blood Gas Ventilator Setting NO Blood Gas Inspired Oxygen 2L Sodium Level 141 135-145 MMOL/L Potassium Level 3.9 3.6-5.0 MMOL/L Chloride Level 107 98-107 MMOL/L Carbon Dioxide Level 20 L 21-32 MMOL/L Anion Gap 14 5-14 MMOL/L Blood Urea Nitrogen 16 7-18 MG/DL Creatinine 2.02 H 0.60-1.30 MG/DL Estimat Glomerular Filtration Rate 29 BUN/Creatinine Ratio 8 Glucose Level 105 70-105 MG/DL Calcium Level 9.5 8.5-10.1 MG/DL Corrected Calcium 9.5 8.5-10.1 MG/DL Total Bilirubin 0.5 0.1-1.0 MG/DL Aspartate Amino Transf (AST/SGOT) 50 H 5-34 U/L Alanine Aminotransferase (ALT/SGPT) 36 0-55 U/L Alkaline Phosphatase 102 40-136 U/L Troponin I 0.076 H <0.028 NG/ML Total Protein 7.8 6.4-8.2 GM/DL Albumin 4.0 3.2-4.5 GM/DL White Blood Count 18.1 H 4.3-11.0 10^3/uL Red Blood Count 4.36 3.80-5.11 10^6/uL Hemoglobin 13.3 11.5-16.0 g/dL Hematocrit 41 35-52 % Mean Corpuscular Volume 94 80-99 fL Mean Corpuscular Hemoglobin 31 25-34 pg Mean Corpuscular Hemoglobin Concent 33 32-36 g/dL Red Cell Distribution Width 12.0 10.0-14.5 % Platelet Count 379 130-400 10^3/uL Mean Platelet Volume 10.0 9.0-12.2 fL Immature Granulocyte % (Auto) 0 % Neutrophils (%) (Auto) 91 H 42-75 % Lymphocytes (%) (Auto) 6 L 12-44 % Monocytes (%) (Auto) 2 0-12 % Eosinophils (%) (Auto) 0 0-10 % Basophils (%) (Auto) 0 0-10 % Neutrophils # (Auto) 16.4 H 1.8-7.8 10^3/uL Lymphocytes # (Auto) 1.2 1.0-4.0 10^3/uL Monocytes # (Auto) 0.4 0.0-1.0 10^3/uL Eosinophils # (Auto) 0.0 0.0-0.3 10^3/uL Basophils # (Auto) 0.0 0.0-0.1 10^3/uL Immature Granulocyte # (Auto) 0.1 0.0-0.1 10^3/uL Neutrophils % (Manual) 89 % Lymphocytes % (Manual) 8 % Monocytes % (Manual) 3 % Blood Morphology Comment NORMAL Urine Color YELLOW Urine Clarity CLEAR Urine pH 5.0 5-9 Urine Specific Nixon >=1.030 1.016-1.022 Urine Protein 3+ H NEGATIVE Urine Glucose (UA) NEGATIVE NEGATIVE Urine Ketones NEGATIVE NEGATIVE Urine Nitrite NEGATIVE NEGATIVE Urine Bilirubin 1+ H NEGATIVE Urine Urobilinogen 0.2 < = 1.0 MG/DL Urine Leukocyte Esterase NEGATIVE NEGATIVE Urine RBC (Auto) 3+ H NEGATIVE Urine RBC TNTC H /HPF Urine WBC 2-5 /HPF Urine Squamous Epithelial Cells 0-2 /HPF Urine Crystals NONE /LPF Urine Bacteria FEW H /HPF Urine Casts PRESENT /LPF Urine Hyaline Casts 2-5 H /LPF Urine Mucus NEGATIVE /LPF Urine Culture Indicated YES Salicylates Level < 5.0 L 5.0-20.0 MG/DL Urine Opiates Screen POSITIVE H NEGATIVE Urine Oxycodone Screen POSITIVE H NEGATIVE Urine Methadone Screen NEGATIVE NEGATIVE Urine Propoxyphene Screen NEGATIVE NEGATIVE Acetaminophen Level < 10 L 10-30 UG/ML Urine Barbiturates Screen NEGATIVE NEGATIVE Ur Tricyclic Antidepressants Screen NEGATIVE NEGATIVE Urine Phencyclidine Screen NEGATIVE NEGATIVE Urine Amphetamines Screen NEGATIVE NEGATIVE Urine Methamphetamines Screen NEGATIVE NEGATIVE Urine Benzodiazepines Screen POSITIVE H NEGATIVE Urine Cocaine Screen NEGATIVE NEGATIVE Urine Cannabinoids Screen NEGATIVE NEGATIVE Serum Alcohol < 10 <10 MG/DL Glucometer 98 70-110 MG/DL My Orders Orders - JOY SAN MD Vital Signs Stroke Patient Q15M (04/23/23 22:53) Monitor-Rhythm Ecg Trace Only (04/23/23 22:53) Dysphagia Screening Tool Q10MX1 (04/23/23 22:53) Ct Head/Cervical Spine Wo (04/23/23 22:53) Cbc With Automated Diff (04/23/23 22:58) Protime With Inr (04/23/23 22:58) Partial Thromboplastin Time (04/23/23 22:58) Comprehensive Metabolic Panel (04/23/23 22:58) Fibrin Degradation Products (04/23/23 22:58) Troponin I Addy (04/23/23 22:58) Ua Culture If Indicated (04/23/23 22:58) Chest 1 View, Ap/Pa Only (04/23/23 22:58) Catheter(Urinary) Insert & Ass 03,15 (04/23/23 22:58) Ekg Tracing (04/23/23 22:58) Nothing By Mouth (04/24/23 Breakfast) Accucheck Stat ONCE (04/23/23 22:58) Ed Iv/Invasive Line Start (04/23/23 22:58) Ed Iv/Invasive Line Start (04/23/23 22:58) Vital Signs Stroke Patient Q15M (04/23/23 22:58) O2 (04/23/23 22:58) Dysphagia Screening Tool Q10MX1 (04/23/23 22:58) Post Thrombolytic Adminstratio (04/23/23 22:58) Lipid Panel (04/24/23 06:00) Arterial Blood Gas (04/23/23 22:59) Manual Differential (04/23/23 23:17) Ns Iv 1000 Ml (Ns Iv 1000 Ml) (04/23/23 23:36) Urine Culture (04/23/23 23:20) Salicylate (04/23/23 23:50) Alcohol (04/23/23 23:50) Acetaminophen (04/23/23 23:50) Drug Screen Stat (Urine) (04/23/23 23:50) Naloxone Injection (Naloxone Injection) (04/24/23 00:45) Medications Given in ED Current Medications Medications Dose Ordered Sig/Efren Route Start Time Stop Time Status Last Admin Dose Admin Naloxone HCl 2 mg ONCE ONCE IV 04/24/23 00:45 04/24/23 00:46 DC 04/24/23 00:39 2 MG Vital Signs/I&O 04/23/23 04/24/23 22:47 00:58 Temp 36.9 36.7 Pulse 72 80 Resp 16 14 B/P (MAP) 146/117 (127) 144/66 Pulse Ox 96 99 O2 Delivery Nasal Cannula Nasal Cannula O2 Flow Rate 2.00 3.00 04/24/23 00:00 Intake Total 200 ml Balance 200 ml Progress Progress Note : Time: 00:57 Progress Note Patient re-evaluated at this time - is saying "yes" to everything. Does not appear reliable. Somnolent. -- Patient seen and evaluated by me. Eval today includes physical exam with basic labs - CBC, CMP, UA, UDS, serum and urine toxicology. ABG, Coags, ddimer and CT head and cervical spine with CXR. EKG also obtained. Pertinent phys exam findings - WDWN female - NAD. SHe has muscle fasiculations and almost tremors of the LE bilaterally. Sensation appears globally intact. She will not follow commands. PERRL (not pinpoint). No obvious facial droop or flaccidity. She is almost spastic in her extrmities. No lateralizing signs. She will track and open eyes to command. VSS - afebrile, accu check WNL. Accurate NIH unable to be obtained due to inability of patient to participate in the process - the least I obtained would be an 8 - however patient not a candidate for TPA as there was no reliable history as to LKW time. DDx based on H&P - intoxications (? benzos) unusual stroke presentation, sepsis (?) Labs independently reviewed and interpreted by me - as well as EKG and CXR. EKG no acute abnormalities. CXR without infiltrate (poor technique - no obvious findings). CT head and cspine read by radiology - no acute findings. no fractures. Labs - CBC shows a leukocytosis of 18.1 with 91% segs. normal H&H and platelets. CHEM remarkable for an elevated creat 2.02 (above her normal baseline) with normal electrolytes. Troponin minimally bumped at 0.076. Coags WNL and ddimer min elevated at 0.87. Her ABG shows a ph of 7.21 with Pco2 of 45 and PO2 of 77. Serum tox neg (aspirin, tylenol and etoh). UDS positive for opiates/oxycodone and benzos. UA concerntrated (sp grav >1.030) with TNTC RBC. Patient treated in the ED with NS and was also given a second dose (EMS gave first) of 2mg narcan. No improvement in mental status. Consideration for Romazicon, however, patient is likely a chronic user and did not want to precipitate a withdrawal seizure. I strongly suspect her presentation is related to medication intoxication and resultant hypoxia leading to abnormal lab findings. I discussed the case with Dr Vela - eileen for [facility] hospitalist. She accepts the patient to ICU for monitoring. I elected not to do CT Angios of head and neck due to renal function and low clinical suspicion for LVO. Initial ECG Impression Date: Apr 24, 2023 Initial ECG Impression Time: 23:18 Initial ECG Rate: 71 Initial ECG Rhythm: Normal Sinus Initial ECG Intervals MD 151 QRS 81 QTc 452 Comment artifact at baseline. NSSTW changes throughout. No ST depression or elevation. Diagnostic Imaging Diagonstic Imaging: CT Comments head and cervical spine - per virtual radiologic - no acute findings Diagonstic Imaging: Xray Plain Films/CT/US/NM/MRI: chest Comments [place] xray - independently reviewed and interpreted by me - rotated film, no obvious infiltrates or effusions Departure Communication (Admissions) Time/Spoke to Admitting Phy: 00:[address] Vela ([facility] hospitalist) Impression Primary Impression: Altered mental status Qualified Codes: R41.0 - Disorientation, unspecified Additional Impressions: Hypoxemia Elevated troponin AMANDEEP (acute kidney injury) Metabolic acidosis Disposition: ADMITTED INPATIENT Condition: Critical Admissions Decision to Admit Reason: Admit from ER (General) Decision to Admit/Date: Apr 24, 2023 Time/Decision to Admit Time: 00:57 Departure-Patient Inst. Referrals: [facility] (PCP/Family) Primary Care Physician Copy Copies To 1: LISA ARREDONDO KATHRYN M MD Apr 23, 2023 23:11
[2023-04-23 23:13] LABS: PROTHROMBIN TIME PATIENT 12.9 SEC (12.2-14.7)
[2023-04-23 23:14] LABS: POTASSIUM 3.9 MMOL/L (3.6-5.0)
[2023-04-23 23:15] LABS: CALCIUM 9.5 MG/DL (8.5-10.1)
[2023-04-23 23:16] LABS: FIBRIN DEGRADATION PRODUCTS 0.87 UG/ML (0.00-0.49); TOTAL PROTEIN 7.8 GM/DL (6.4-8.2)
[2023-04-23 23:18] LABS: BILIRUBIN,TOTAL 0.5 MG/DL (0.1-1.0)
[2023-04-23 23:20] LABS: CREATININE SERUM 2.02 MG/DL (0.60-1.30)
[2023-04-23 23:21] LABS: BASOPHILS % (AUTO) 0 % (0-10); EOSINOPHILS % (AUTO) 0 % (0-10); HEMATOCRIT 41 % (35-52); HEMOGLOBIN 13.3 g/dL (11.5-16.0); LYMPHOCYTES # (AUTO) 1.2 10^3/uL (1.0-4.0); LYMPHOCYTES % (AUTO) 6 % (12-44); MEAN CORPUSCULAR HEMOGLOBIN 31 pg (25-34); MEAN CORPUSCULAR HGB CONC 33 g/dL (32-36); MEAN CORPUSCULAR VOLUME 94 fL (80-99); MONOCYTES # (AUTO) 0.4 10^3/uL (0.0-1.0); MONOCYTES % (AUTO) 2 % (0-12); NEUTROPHILS # (AUTO) 16.4 10^3/uL (1.8-7.8); NEUTROPHILS % (AUTO) 91 % (42-75); PLATELET COUNT 379 10^3/uL (130-400); WHITE BLOOD COUNT 18.1 10^3/uL (4.3-11.0)
[2023-04-23] MEDS ORDERED: NS IV 1000 ML 1,000 ML IV STA (23:36)
[2023-04-23 23:41] LABS: LYMPHOCYTES % (MANUAL) 8 %; MONOCYTES % (MANUAL) 3 %; NEUTROPHILS % (MANUAL) 89 %
[2023-04-23 23:42] LABS: RBC MORPH NORMAL
[2023-04-23 23:42] LABS: BACTERIA,URINE FEW /HPF; BILIRUBIN,URINE 1+ (NEGATIVE); CLARITY,URINE CLEAR; COLOR,URINE YELLOW; GLUCOSE, URINE (UA) NEGATIVE (NEGATIVE); KETONES,URINE NEGATIVE (NEGATIVE); LEUKOCYTE ESTERASE ,URINE NEGATIVE (NEGATIVE); NITRITE,URINE NEGATIVE (NEGATIVE); PROTEIN,URINE 3+ (NEGATIVE); RBC,URINE TNTC /HPF; SQUAMOUS EPITHELIAL CELL,UR 0-2 /HPF
[2023-04-24 00:10] LABS: AMPHETAMINE SCREEN, URINE NEGATIVE (NEGATIVE); BARBITURATE SCREEN URINE NEGATIVE (NEGATIVE); BENZODIAZEPINES SCREEN URINE POSITIVE (NEGATIVE); CANNABINOID SCREEN, URINE NEGATIVE (NEGATIVE); COCAINE SCREEN URINE NEGATIVE (NEGATIVE); METHADONE STAT NEGATIVE (NEGATIVE); OPIATE SCREEN URINE POSITIVE (NEGATIVE); OXYCODONE STAT POSITIVE (NEGATIVE); PROPOXYPHENE STAT NEGATIVE (NEGATIVE); TRICYCLIC ANTIDEPRESSANTS SCRE NEGATIVE (NEGATIVE)
[2023-04-24 00:11] LABS: ACETAMINOPHEN < 10 UG/ML (10-30); SALICYLATE < 5.0 MG/DL (5.0-20.0)
[2023-04-24] MEDS ORDERED: NALOXONE 2 MG/2 ML SYRINGE IV ONE (00:45)
[2023-04-24] MEDS ORDERED: ONDANSETRON INJECTION 4 MG/2 ML (SDV) ONE (01:30)
[2023-04-24] MEDS: ONDANSETRON INJECTION 4 MG/2 ML (SDV) IV PRN ×2 (01:45→18:22)
[2023-04-24 01:53] VITALS: BP 146/117
[2023-04-24] MEDS ORDERED: RT-ALBUTEROL SULF 2.5 MG/3 ML PRE-MIX VIAL INH PRN (02:15)
[2023-04-24] MEDS ORDERED: ACETAMINOPHEN 650 MG SUPPOSITORY PR PRN (02:15)
--- NOTE | 2023-04-24 02:45 | Tele-ICU Progress Note ---
Subjective Subjective/Events-last exam TeleICU Critical Care Note Patient is a 52 year old female with history of asthma, GERD who is on multiple medications at home including buspirone, baclofen, paxil, trazadone brought to ED after being found down on the floor. She was given narcan in the filed without any response. Noted to have asymmetric pupils prior to arrival. In ED, CT head negative for acute pathology. UDS positive for oxycodone, benzos, and opiates. ABG showed mild resp acidosis. She was given narcan 2 mg IV x 2. She remained somnolent so decision made to admit to ICU. Currently, patient protecting airway. Arousble but quickly goes back to sleep. Unable to get any history. Vitals reviewed - resp rate 14, bp 140s/60s, hr 70s Exam - somnolent. Labs reviewed - wbc 18.1, abg 7.29/45/77 on 2 LPM, Cr 2.02, TnI - 0.076. UDS + opiates, benzos, oxycodone Imaging - personally reviewed cxr - no obvious abnormalities. CT head without acute abnormalities per report but no official read yet Diagnosis: Acute hypercapnic respiratory failure - secondary to drug overdose - only slight - can hold off on bipap for now. Monitor in ICU for airway protection Acute toxic encephalopathy - secondary to polypharmacy - did not respond to narcan. now somnolent. montor mental status. Acute kidney injury - monitor creatinine, UOP Elevated troponin - only slight - continue to monitor for now. A total of _35 _ minutes of critical care time was devoted to this patient, including reviewing this patient's available data, including medical history, events of note and test results. This was required to treat and/or prevent further deterioration of critical care conditions ( as above ). Service provided to a patient admitted to ICU bed via interactive E-CARE system with real-time audio and video telecommunications from [facility]- ICU hub located in [place], [place] Sepsis Event Evaluation Height, Weight, BMI Height: 5'5" Weight: 175lbs. oz. 79.750715nj; 33.05 BMI Method:Stated Exam Exam Patient acknowledged, consented, and participated in this virtual visit which was conducted using real time audio/video Vital Signs Date Time Temp Pulse Resp B/P (MAP) Pulse Ox O2 Delivery O2 Flow Rate FiO2 04/24/23 01:53 36.9 72 96 28 04/24/23 01:47 96 Nasal Cannula 2.00 04/24/23 00:58 36.7 80 14 144/66 99 Nasal Cannula 3.00 04/23/23 22:47 36.9 72 16 146/117 (127) 96 Nasal Cannula 2.00 I & O 04/24/23 07:00 Intake Total 1200 ml Output Total 350 ml Balance 850 ml Height & Weight Height: 5'5" Weight: 175lbs. oz. 79.333948in; 33.05 BMI Method:Stated General Appearance: No Apparent Distress Capillary Refill: Less Than 3 Seconds Gastrointestinal: non tender, soft Results Lab Laboratory Tests 04/23/23 22:58 04/23/23 23:17 Assessment/Plan Assessment/Plan See subjective tab Critical Care: Critically Ill Patient Diagnosis/Problems Diagnosis/Problems (1) Altered mental status Status: Acute Qualifiers: Qualified Codes: R41.0 - Disorientation, unspecified JACKLYN LOW MD Apr 24, 2023 02:45
[2023-04-24] MEDS: RT-ALBUTEROL SULF 2.5 MG/3 ML PRE-MIX VIAL INH SCH ×4 (02:49→21:25)
[2023-04-24] MEDS: NS IV 1000 ML 1,000 ML IV SCH ×4 (03:37→23:48)
[2023-04-24 04:38] LABS: BASOPHILS % (AUTO) 0 % (0-10); EOSINOPHILS % (AUTO) 0 % (0-10); HEMATOCRIT 36 % (35-52); HEMOGLOBIN 11.8 g/dL (11.5-16.0); LYMPHOCYTES # (AUTO) 1.4 10^3/uL (1.0-4.0); LYMPHOCYTES % (AUTO) 9 % (12-44); MEAN CORPUSCULAR HEMOGLOBIN 30 pg (25-34); MEAN CORPUSCULAR HGB CONC 33 g/dL (32-36); MEAN CORPUSCULAR VOLUME 92 fL (80-99); MONOCYTES # (AUTO) 0.4 10^3/uL (0.0-1.0); MONOCYTES % (AUTO) 3 % (0-12); NEUTROPHILS # (AUTO) 13.2 10^3/uL (1.8-7.8); NEUTROPHILS % (AUTO) 88 % (42-75); PLATELET COUNT 320 10^3/uL (130-400)
[2023-04-24 04:55] LABS: ALBUMIN 3.4 GM/DL (3.2-4.5); POTASSIUM 3.5 MMOL/L (3.6-5.0)
[2023-04-24 04:56] LABS: CALCIUM 8.7 MG/DL (8.5-10.1)
[2023-04-24 04:58] LABS: TOTAL PROTEIN 6.6 GM/DL (6.4-8.2)
[2023-04-24 04:59] LABS: BILIRUBIN,TOTAL 0.5 MG/DL (0.1-1.0)
[2023-04-24 05:01] LABS: CREATININE SERUM 1.37 MG/DL (0.60-1.30); PHOSPHORUS 4.7 MG/DL (2.3-4.7)
[2023-04-24 05:04] LABS: MAGNESIUM 2.1 MG/DL (1.6-2.4)
[2023-04-24 05:06] LABS: ABG BASE EXCESS -3.5 MMOL/L (-2.5-2.5); ABG OXYGEN SATURATION 96 % (94-100); ABG PCO2 37 MMHG (35-45); ABG PH 7.37 (7.37-7.43); ABG PO2 75 MMHG (79-93); ABG TCO2 22.1 MMOL/L (21.0-31.0)
[2023-04-24 05:09] LABS: ALLENS TEST YES-POS; INSPIRED O2 1 L; PATIENT TEMP 36.6; VENTILATOR NO
[2023-04-24] MEDS: POTASSIUM CL 10MEQ/50ML IVPB 50 ML IV SCH ×4 (05:28→07:45)
[2023-04-24] MEDS: MAGNESIUM 1 GM/100 ML IVPB 100 ML IV SCH (05:28)
[2023-04-24] MEDS: POTASSIUM CHLORIDE 20 MEQ TABLET PO SCH (05:29)
[2023-04-24] MEDS ORDERED: NS IV 500 ML 500 ML IV PRN (05:30)
[2023-04-24] MEDS ORDERED: POTASSIUM CL 10MEQ/50ML IVPB 200 ML IV ONE (05:43)
--- NOTE | 2023-04-24 07:26 | Diagnostic Imaging Report ---
PROCEDURE: CT head and CT cervical spine without contrast. TECHNIQUE: Multiple contiguous axial images were obtained through the brain and cervical spine without the use of intravenous contrast. Sagittal and coronal reformations through the cervical spine were then performed. Auto Exposure Controls were utilized during the CT exam to meet ALARA standards for radiation dose reduction. INDICATION: Found down and vomiting. Comparison is made with prior CT 12/23/2021. CT HEAD: The ventricles and sulci are within normal limits. No sulcal effacement or midline shift is identified. No acute intra-axial or extra-axial hemorrhage is detected. Cisterns are patent. Visualized paranasal sinuses are clear. IMPRESSION: No acute intracranial process is detected. CT cervical spine: Alignment is normal. There is generalized degenerative disc disease with variable disc space narrowing and marginal spurring. No fractures are identified. Odontoid is intact. IMPRESSION: No acute bony abnormality is detected. Dictated by: Dictated on workstation # [id number]
--- NOTE | 2023-04-24 07:54 | Diagnostic Imaging Report ---
INDICATION: Altered mental status, stroke activation. Found down. TECHNIQUE: Single view chest 11:02 PM CORRELATION STUDY: 12/23/2021. FINDINGS: Given patient rotation, mildly prominent heart and mediastinum appear stable. Vasculature within normal limits. The lungs are clear with no consolidating infiltrate. There is no significant effusion or pneumothorax. IMPRESSION: 1. Negative for acute abnormality of the chest. Dictated by: Dictated on workstation # [id number]
[2023-04-24] MEDS: ENOXAPARIN 40 MG/0.4 ML SYRINGE SC SCH (09:25)
--- NOTE | 2023-04-24 10:06 | History & Physical ---
HPI History of Present Illness: Patient alert, follows faces and nods and shakes head, answers her name, but no other questions verbally. Exam Limitations: clinical condition Date seen by provider: Apr 24, 2023 Time Seen by Provider: 10:05 Attending Physician [place] PCP Admitting Physician: Loretta Vela MD Attending Physician: Loretta Vela MD Consult Date of Admission Apr 24, 2023 at 00:59 Home Medications Home Medications Reviewed patient Home Medication Reconciliation performed by pharmacy medication reconciliations electrical maintenance technician and/or nursing. Patients Allergies have been reviewed. Allergies Coded Allergies: No Known Drug Allergies (Unverified , 06/26/14) [id number] Hx Patient Social History Smoking Status: Unknown if Ever Smoked Alcohol Use?: Unable to obtain Immunizations Up To Date First/Initial COVID19 Vaccinat: UNSURE OF DATE Second COVID19 Vaccination James: UNSURE OF DATE. Third COVID19 Vaccination Date: UNSURE OF DATE Past Medical History PMHx: unable to obtain due to patient condition Review of Systems ([facility]) Constitutional: other (unable to obtain due to patient condition) Reviewed Test Results Reviewed Test Results Lab Laboratory Tests Test 04/23/23 22:58 04/23/23 23:17 04/23/23 23:20 04/23/23 23:22 Range/Units Prothrombin Time 12.9 12.2-14.7 SEC INR Comment 1.0 0.8-1.4 Activated Partial Thromboplast Time 30 24-35 SEC D-Dimer 0.87 H 0.00-0.49 UG/ML Blood Gas Puncture Site LEFT RADIAL Blood Gas Patient Temperature 36.9 Arterial Blood pH 7.29 *L 7.37-7.43 Arterial Blood Partial Pressure CO2 45 35-45 MMHG Arterial Blood Partial Pressure O2 77 L 79-93 MMHG Arterial Blood HCO3 21 L 23-27 MMOL/L Arterial Blood Total CO2 22.6 21.0-31.0 MMOL/L Arterial Blood Oxygen Saturation 95 94-100 % Arterial Blood Base Excess -4.3 L -2.5-2.5 MMOL/L Daniel Test YES-POS Blood Gas Ventilator Setting NO Blood Gas Inspired Oxygen 2L Sodium Level 141 135-145 MMOL/L Potassium Level 3.9 3.6-5.0 MMOL/L Chloride Level 107 98-107 MMOL/L Carbon Dioxide Level 20 L 21-32 MMOL/L Anion Gap 14 5-14 MMOL/L Blood Urea Nitrogen 16 7-18 MG/DL Creatinine 2.02 H 0.60-1.30 MG/DL Estimat Glomerular Filtration Rate 29 BUN/Creatinine Ratio 8 Glucose Level 105 70-105 MG/DL Calcium Level 9.5 8.5-10.1 MG/DL Corrected Calcium 9.5 8.5-10.1 MG/DL Total Bilirubin 0.5 0.1-1.0 MG/DL Aspartate Amino Transf (AST/SGOT) 50 H 5-34 U/L Alanine Aminotransferase (ALT/SGPT) 36 0-55 U/L Alkaline Phosphatase 102 40-136 U/L Troponin I 0.076 H <0.028 NG/ML Total Protein 7.8 6.4-8.2 GM/DL Albumin 4.0 3.2-4.5 GM/DL White Blood Count 18.1 H 4.3-11.0 10^3/uL Red Blood Count 4.36 3.80-5.11 10^6/uL Hemoglobin 13.3 11.5-16.0 g/dL Hematocrit 41 35-52 % Mean Corpuscular Volume 94 80-99 fL Mean Corpuscular Hemoglobin 31 25-34 pg Mean Corpuscular Hemoglobin Concent 33 32-36 g/dL Red Cell Distribution Width 12.0 10.0-14.5 % Platelet Count 379 130-400 10^3/uL Mean Platelet Volume 10.0 9.0-12.2 fL Immature Granulocyte % (Auto) 0 % Neutrophils (%) (Auto) 91 H 42-75 % Lymphocytes (%) (Auto) 6 L 12-44 % Monocytes (%) (Auto) 2 0-12 % Eosinophils (%) (Auto) 0 0-10 % Basophils (%) (Auto) 0 0-10 % Neutrophils # (Auto) 16.4 H 1.8-7.8 10^3/uL Lymphocytes # (Auto) 1.2 1.0-4.0 10^3/uL Monocytes # (Auto) 0.4 0.0-1.0 10^3/uL Eosinophils # (Auto) 0.0 0.0-0.3 10^3/uL Basophils # (Auto) 0.0 0.0-0.1 10^3/uL Immature Granulocyte # (Auto) 0.1 0.0-0.1 10^3/uL Neutrophils % (Manual) 89 % Lymphocytes % (Manual) 8 % Monocytes % (Manual) 3 % Blood Morphology Comment NORMAL Urine Color YELLOW Urine Clarity CLEAR Urine pH 5.0 5-9 Urine Specific [place] >=1.030 1.016-1.022 Urine Protein 3+ H NEGATIVE Urine Glucose (UA) NEGATIVE NEGATIVE Urine Ketones NEGATIVE NEGATIVE Urine Nitrite NEGATIVE NEGATIVE Urine Bilirubin 1+ H NEGATIVE Urine Urobilinogen 0.2 < = 1.0 MG/DL Urine Leukocyte Esterase NEGATIVE NEGATIVE Urine RBC (Auto) 3+ H NEGATIVE Urine RBC TNTC H /HPF Urine WBC 2-5 /HPF Urine Squamous Epithelial Cells 0-2 /HPF Urine Crystals NONE /LPF Urine Bacteria FEW H /HPF Urine Casts PRESENT /LPF Urine Hyaline Casts 2-5 H /LPF Urine Mucus NEGATIVE /LPF Urine Culture Indicated YES Salicylates Level < 5.0 L 5.0-20.0 MG/DL Urine Opiates Screen POSITIVE H NEGATIVE Urine Oxycodone Screen POSITIVE H NEGATIVE Urine Methadone Screen NEGATIVE NEGATIVE Urine Propoxyphene Screen NEGATIVE NEGATIVE Acetaminophen Level < 10 L 10-30 UG/ML Urine Barbiturates Screen NEGATIVE NEGATIVE Ur Tricyclic Antidepressants Screen NEGATIVE NEGATIVE Urine Phencyclidine Screen NEGATIVE NEGATIVE Urine Amphetamines Screen NEGATIVE NEGATIVE Urine Methamphetamines Screen NEGATIVE NEGATIVE Urine Benzodiazepines Screen POSITIVE H NEGATIVE Urine Cocaine Screen NEGATIVE NEGATIVE Urine Cannabinoids Screen NEGATIVE NEGATIVE Serum Alcohol < 10 <10 MG/DL Glucometer 98 70-110 MG/DL Test 04/24/23 04:28 04/24/23 04:57 04/24/23 09:10 04/24/23 10:28 Range/Units White Blood Count 15.0 H 4.3-11.0 10^3/uL Red Blood Count 3.91 3.80-5.11 10^6/uL Hemoglobin 11.8 11.5-16.0 g/dL Hematocrit 36 35-52 % Mean Corpuscular Volume 92 80-99 fL Mean Corpuscular Hemoglobin 30 25-34 pg Mean Corpuscular Hemoglobin Concent 33 32-36 g/dL Red Cell Distribution Width 12.0 10.0-14.5 % Platelet Count 320 130-400 10^3/uL Mean Platelet Volume 10.0 9.0-12.2 fL Immature Granulocyte % (Auto) 0 % Neutrophils (%) (Auto) 88 H 42-75 % Lymphocytes (%) (Auto) 9 L 12-44 % Monocytes (%) (Auto) 3 0-12 % Eosinophils (%) (Auto) 0 0-10 % Basophils (%) (Auto) 0 0-10 % Neutrophils # (Auto) 13.2 H 1.8-7.8 10^3/uL Lymphocytes # (Auto) 1.4 1.0-4.0 10^3/uL Monocytes # (Auto) 0.4 0.0-1.0 10^3/uL Eosinophils # (Auto) 0.0 0.0-0.3 10^3/uL Basophils # (Auto) 0.0 0.0-0.1 10^3/uL Immature Granulocyte # (Auto) 0.0 0.0-0.1 10^3/uL Sodium Level 141 135-145 MMOL/L Potassium Level 3.5 L 3.6-5.0 MMOL/L Chloride Level 112 H 98-107 MMOL/L Carbon Dioxide Level 18 L 21-32 MMOL/L Anion Gap 11 5-14 MMOL/L Blood Urea Nitrogen 15 7-18 MG/DL Creatinine 1.37 H 0.60-1.30 MG/DL Estimat Glomerular Filtration Rate 46 BUN/Creatinine Ratio 11 Glucose Level 105 70-105 MG/DL Calcium Level 8.7 8.5-10.1 MG/DL Corrected Calcium 9.2 8.5-10.1 MG/DL Phosphorus Level 4.7 2.3-4.7 MG/DL Magnesium Level 2.1 1.6-2.4 MG/DL Total Bilirubin 0.5 0.1-1.0 MG/DL Aspartate Amino Transf (AST/SGOT) 37 H 5-34 U/L Alanine Aminotransferase (ALT/SGPT) 29 0-55 U/L Alkaline Phosphatase 88 40-136 U/L Troponin I 0.046 H <0.028 NG/ML Total Protein 6.6 6.4-8.2 GM/DL Albumin 3.4 3.2-4.5 GM/DL Triglycerides Level 115 <150 MG/DL Cholesterol Level 158 < 200 MG/DL LDL Cholesterol Direct 108 1-129 MG/DL VLDL Cholesterol 23 5-40 MG/DL HDL Cholesterol 43 40-60 MG/DL Blood Gas Puncture Site LEFT RADIAL Blood Gas Patient Temperature 36.6 Arterial Blood pH 7.37 7.37-7.43 Arterial Blood Partial Pressure CO2 37 35-45 MMHG Arterial Blood Partial Pressure O2 75 L 79-93 MMHG Arterial Blood HCO3 21 L 23-27 MMOL/L Arterial Blood Total CO2 22.1 21.0-31.0 MMOL/L Arterial Blood Oxygen Saturation 96 94-100 % Arterial Blood Base Excess -3.5 L -2.5-2.5 MMOL/L Daniel Test YES-POS Blood Gas Ventilator Setting NO Blood Gas Inspired Oxygen 1 L Glucometer 98 70-110 MG/DL Influenza Type A (RT-PCR) Not Detected Not Detecte Influenza Type B (RT-PCR) Not Detected Not Detecte SARS-CoV-2 RNA (RT-PCR) Not Detected Not Detecte Radiology CXR unremarkable CT HEAD: The ventricles and sulci are within normal limits. No sulcal effacement or midline shift is identified. No acute intra-axial or extra-axial hemorrhage is detected. Cisterns are patent. Visualized paranasal sinuses are clear. IMPRESSION: No acute intracranial process is detected. CT cervical spine: Alignment is normal. There is generalized degenerative disc disease with variable disc space narrowing and marginal spurring. No fractures are identified. Odontoid is intact. IMPRESSION: No acute bony abnormality is detected. Physical Exam-([facility]) Physical Exam Vital Signs VS - Last 72 Hours, by Label 04/23/23 04/24/23 04/24/23 04/24/23 22:47 00:58 01:15 01:18 Temp 36.9 36.7 36.2 Pulse 72 80 82 71 Resp 16 14 18 B/P (MAP) 146/117 (127) 144/66 171/120 (137) Pulse Ox 96 99 97 O2 Delivery Nasal Cannula Nasal Cannula Nasal Cannula O2 Flow Rate 2.00 3.00 2.00 04/24/23 04/24/23 04/24/23 04/24/23 01:30 01:45 01:47 01:53 Temp 36.9 Pulse 82 71 72 Resp 18 23 B/P (MAP) 127/112 (116) 151/98 (116) Pulse Ox 97 96 96 96 O2 Delivery Nasal Cannula Nasal Cannula Nasal Cannula O2 Flow Rate 2.00 2.00 2.00 FiO2 28 04/24/23 04/24/23 04/24/23 04/24/23 02:00 02:15 02:30 02:45 Pulse 65 71 70 73 Resp 10 29 B/P (MAP) 157/119 (129) 143/130 (133) 130/103 (117) 114/106 (110) Pulse Ox 95 96 97 98 O2 Delivery Nasal Cannula Nasal Cannula Nasal Cannula Nasal Cannula O2 Flow Rate 2.00 2.00 2.00 2.00 04/24/23 04/24/23 04/24/23 04/24/23 02:49 02:49 02:53 03:00 Pulse 93 68 68 Resp 18 11 11 B/P (MAP) 183/117 (151) 159/91 (108) 137/98 (116) Pulse Ox 98 97 95 95 O2 Delivery Nasal Cannula Nasal Cannula Nasal Cannula Nasal Cannula O2 Flow Rate 2.00 1.00 2.00 2.00 04/24/23 04/24/23 04/24/23 04/24/23 03:15 03:30 03:45 04:00 Temp 36.3 Pulse 69 96 68 Resp 38 26 B/P (MAP) 140/111 (120) 178/87 (108) 129/90 (104) Pulse Ox 94 97 96 O2 Delivery Nasal Cannula Nasal Cannula Nasal Cannula O2 Flow Rate 2.00 2.00 2.00 04/24/23 04/24/23 04/24/23 04/24/23 04:00 04:18 05:00 05:45 Pulse 71 71 84 Resp 26 B/P (MAP) 147/87 (107) 153/101 (118) 156/76 (102) Pulse Ox 94 95 94 95 O2 Delivery Nasal Cannula Nasal Cannula Nasal Cannula Nasal Cannula O2 Flow Rate 2.00 2.00 2.00 2.00 04/24/23 04/24/23 04/24/23 04/24/23 06:15 07:00 07:12 07:51 Temp 37.1 Pulse 69 110 78 Resp 26 24 B/P (MAP) 155/107 (123) 158/121 (133) Pulse Ox 96 97 O2 Delivery Nasal Cannula Nasal Cannula O2 Flow Rate 2.00 2.00 04/24/23 04/24/23 04/24/23 04/24/23 08:00 08:16 09:00 10:00 Pulse 78 77 86 Resp 11 48 22 B/P (MAP) 148/90 (109) 149/118 (128) 159/99 (119) Pulse Ox 95 96 95 97 O2 Delivery Nasal Cannula Nasal Cannula Nasal Cannula Nasal Cannula O2 Flow Rate 2.00 2.00 2.00 2.00 04/24/23 04/24/23 04/24/23 04/24/23 10:11 10:33 11:00 12:00 Pulse 96 80 Resp 46 14 B/P (MAP) 146/64 (91) 157/99 (118) Pulse Ox 96 94 95 O2 Delivery Nasal Cannula Nasal Cannula Nasal Cannula Nasal Cannula O2 Flow Rate 2.00 1.00 1.00 1.00 04/24/23 04/24/23 04/24/23 04/24/23 12:09 12:26 12:35 13:00 Temp 37.7 Pulse 82 76 Resp 16 B/P (MAP) Pulse Ox 97 97 O2 Delivery Room Air Nasal Cannula O2 Flow Rate 1.00 04/24/23 04/24/23 04/24/23 04/24/23 14:00 15:00 15:07 15:33 Temp 36.6 Pulse 75 73 Resp 9 9 B/P (MAP) 137/67 (90) 144/82 (102) Pulse Ox 97 94 96 O2 Delivery Nasal Cannula Nasal Cannula Room Air O2 Flow Rate 1.00 1.00 Capillary Refill : Less Than 3 Seconds General Appearance: no apparent distress Eyes: Bilateral Eye PERRL, Bilateral Eye EOMI Respiratory: lungs clear, normal breath sounds Cardiovascular: regular rate, rhythm, no murmur Peripheral Pulses: 2+ Dorsalis Pedis (R), 2+ Left Dors-Pedis (L) Gastrointestinal: normal bowel sounds, soft, other (mild ttp LUQ) Neurologic/Psychiatric: alert, other (answers only name, but looks at others in room when they are introduced, nods and shakes head to questions and follows instructions to move all extremeties and senior trial attorney hands) Skin: other (scar on right dorsal foot, scarring on left leg, pink linear lesion on LUQ) Assessment/Plan Assessment/Plan Admission Status: Inpatient Order (span 2 midnights) Reason for Inpatient Admission: Severe altered mental status, unresponsiveness (1) Altered mental status Status: Acute Assessment & Plan: Unknown downtime. CT head unremarkable, no respiratory distress, protecting airway and appears alert, improved somewhat this am as she has verbalized name and nods and shakes head to questions. Suspect medication overuse. Hold home sedating meds. Check MRI. Qualifiers: Qualified Codes: R40.0 - Somnolence (2) Metabolic acidosis Status: Acute Assessment & Plan: Improved with fluids overnight. (3) Elevated troponin Status: Acute Assessment & Plan: Appreciate Cardiology recommendations. (4) AMANDEEP (acute kidney injury) Status: Acute Assessment & Plan: Improved overnight, continue to monitor. (5) Hematuria Assessment & Plan: Unknown if new, will review clinic chart and continue eval as able when more alert. (6) DVT prophylaxis Status: Acute Assessment & Plan: Enoxaparin Clinical Quality Measures Stroke: Date of last known well: Apr 23, 2023 Symptoms onset unknown: Yes LORETTA VELA MD Apr 24, 2023 10:06
--- NOTE | 2023-04-24 10:45 | Tele-ICU Progress Note ---
Subjective Date Seen by a Provider: Apr 24, 2023 Time Seen by a Provider: 10:44 Subjective/Events-last exam (Tele-ICU Physician , Progress Note ) Service provided via interactive audio and video telecommunications E-CARE system to a patient admitted to ICU bed in [facility]. 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 R/O Benzo withdrawal. A/P Acute mild hypercapnic respiratory failure - secondary to drug overdose ?, only slight - - airway protection Acute toxic encephalopathy - secondary to polypharmacy - did not respond to narcan. now somnolent. montor mental status. AMANDEEP -IMproving , cont hydration - Elevated troponin - only slight - continue to monitor for now. Leukocytosis - no UTI or PNA - abd skin abrasion, not high suspection for celulitis - off abx Lines : periph , (Central Line Necessity Reviewed) Arias: + OG: Nutrition: po Analgesia: Anxiety/ delirium VTE Prophylaxis: kathy Stress Ulcer Prophylaxis: Plans in collaboration with bedside consultants and IM MDs. Discussed with RN to reach out if any questions or concerns Case and care daily discussed on multidisciplinary rounds ( RN, PharmD, Linux System Administrator , Respiratory Therapy, nuclear plant construction worker ) A total of 20 minutes of critical care time was devoted to this patient today, required to treat and/or prevent further deterioration of critical care condition ( as above ) . IN ADDITION TO CCT by Dr Em last night I am remotely monitoring this patient from another state. I am unable to do the bedside exam, and history/physical and pertinent information is taken from other notes in the computer and bedside staff. Sepsis Event Evaluation Height, Weight, BMI Height: 5'5" Weight: 175lbs. oz. [id number]; 33.05 BMI Method:Stated Exam Exam Patient acknowledged, consented, and participated in this virtual visit which was conducted using real time audio/video Vital Signs Date Time Temp Pulse Resp B/P (MAP) Pulse Ox O2 Delivery O2 Flow Rate FiO2 04/24/23 10:33 Nasal Cannula 1.00 04/24/23 10:11 96 Nasal Cannula 2.00 04/24/23 10:00 86 22 159/99 (119) 97 Nasal Cannula 2.00 04/24/23 09:00 77 48 149/118 (128) 95 Nasal Cannula 2.00 04/24/23 08:16 96 Nasal Cannula 2.00 04/24/23 08:00 78 11 148/90 (109) 95 Nasal Cannula 2.00 04/24/23 07:51 37.1 04/24/23 07:12 78 04/24/23 07:00 110 24 158/121 (133) 97 Nasal Cannula 2.00 04/24/23 06:15 69 26 155/107 (123) 96 Nasal Cannula 2.00 04/24/23 05:45 84 26 156/76 (102) 95 Nasal Cannula 2.00 04/24/23 05:00 71 153/101 (118) 94 Nasal Cannula 2.00 04/24/23 04:18 95 Nasal Cannula 2.00 04/24/23 04:00 71 147/87 (107) 94 Nasal Cannula 2.00 04/24/23 04:00 36.3 04/24/23 03:45 68 129/90 (104) 96 Nasal Cannula 2.00 04/24/23 03:30 96 26 178/87 (108) 97 Nasal Cannula 2.00 04/24/23 03:15 69 38 140/111 (120) 94 Nasal Cannula 2.00 04/24/23 03:00 68 11 137/98 (116) 95 Nasal Cannula 2.00 04/24/23 02:53 68 11 159/91 (108) 95 Nasal Cannula 2.00 04/24/23 02:49 97 Nasal Cannula 1.00 04/24/23 02:49 93 18 183/117 (151) 98 Nasal Cannula 2.00 04/24/23 02:45 73 114/106 (110) 98 Nasal Cannula 2.00 04/24/23 02:30 70 29 130/103 (117) 97 Nasal Cannula 2.00 04/24/23 02:15 71 10 143/130 (133) 96 Nasal Cannula 2.00 04/24/23 02:00 65 157/119 (129) 95 Nasal Cannula 2.00 04/24/23 01:53 36.9 72 96 28 04/24/23 01:47 96 Nasal Cannula 2.00 04/24/23 01:45 71 23 151/98 (116) 96 Nasal Cannula 2.00 04/24/23 01:30 82 18 127/112 (116) 97 Nasal Cannula 2.00 04/24/23 01:18 71 04/24/23 01:15 36.2 82 18 171/120 (137) 97 Nasal Cannula 2.00 04/24/23 00:58 36.7 80 14 144/66 99 Nasal Cannula 3.00 04/23/23 22:47 36.9 72 16 146/117 (127) 96 Nasal Cannula 2.00 I & O 04/24/23 07:00 Intake Total 1200 ml Output Total 500 ml Balance 700 ml Height & Weight Height: 5'5" Weight: 175lbs. oz. 79.538772zp; 33.05 BMI Method:Stated General Appearance: No Apparent Distress Capillary Refill: Less Than 3 Seconds Peripheral Pulses: 2+ Dorsalis Pedis (R), 2+ Left Dors-Pedis (L) Gastrointestinal: normal bowel sounds, soft, other (mild ttp LUQ) Results Lab Laboratory Tests 04/23/23 22:58 04/23/23 23:17 04/24/23 04:28 Assessment/Plan Assessment/Plan 1 MANAN GARCIA MD Apr 24, 2023 10:45
--- NOTE | 2023-04-24 12:08 | Diagnostic Imaging Report ---
PROCEDURE: MR imaging of the brain without contrast. TECHNIQUE: Multiplanar, multisequence MR imaging of the brain was performed without contrast. INDICATION: Altered mental status. Comparison is made to CT study performed one day earlier. FINDINGS: Examination is limited by motion. Ventricles and sulci are within normal limits for size. There is no evidence of restricted diffusion to indicate an acute infarct. Castillo and white matter signal intensities are unremarkable, and there is no abnormal mass effect or shift of midline structures. Paranasal sinuses appear clear. IMPRESSION: No evidence of acute abnormality on study limited by motion artifact. Dictated by: Dictated on workstation # [id number]
--- NOTE | 2023-04-24 14:50 | Consultation-Cardiology ---
HPI-Cardiology Cardiology Consultation Date of Consultation 04/24/23 Date of Admission Time Seen by Provider: 10:44 Indication: minimally elevated troponin HPI Patient is a 52 y/o female presented to the ER with complaints of being found down on floor by tablet tester. Was last seen approx 2 hours prior to that on her porch by a neighbor. Workup done in the ER showing acute respiratory failure with questionable rx drug overdose. Upon interviewing patient, she will open her eyes and answer yes or no to questions. Denies any chest pain. Poor historian and most of HPI is obtained from review of medical records. Home Medications & Allergies Allergies: Coded Allergies: No Known Drug Allergies (Unverified , 06/26/14) Home Medication List Reviewed: Yes ESO-Mpbxrz-Pdalbo Hx Patient Social History Smoking Status: Unknown if Ever Smoked Alcohol Use?: Unable to obtain Immunizations Up To Date Date of Influenza Vaccine: Jun 28, 2021 Review of Systems-General Review of Systems ROS-Unable to Obtain: Unable to obtain full ROS Constitutional: see HPI EENTM: see HPI Respiratory: see HPI Cardiovascular: see HPI; No chest pain, No edema Reviewed Test Results Reviewed Test Results Lab Laboratory Tests 04/23/23 22:58: Prothrombin Time 12.9, INR Comment 1.0, Activated Partial Thromboplast Time 30, D-Dimer 0.87H, Blood Gas Puncture Site LEFT RADIAL, Blood Gas Patient Temperature 36.9, Arterial Blood pH 7.29*L, Arterial Blood Partial Pressure CO2 45, Arterial Blood Partial Pressure O2 77L, Arterial Blood HCO3 21L, Arterial Blood Total CO2 22.6, Arterial Blood Oxygen Saturation 95, Arterial Blood Base Excess -4.3L, Daniel Test YES-POS, Blood Gas Ventilator Setting NO, Blood Gas Inspired Oxygen 2L, Sodium Level 141, Potassium Level 3.9, Chloride Level 107, Carbon Dioxide Level 20L, Anion Gap 14, Blood Urea Nitrogen 16, Creatinine 2.02H , Estimat Glomerular Filtration Rate 29, BUN/Creatinine Ratio 8, Glucose Level 105, Calcium Level 9.5, Corrected Calcium 9.5, Total Bilirubin 0.5, Aspartate Amino Transf (AST/SGOT) 50H, Alanine Aminotransferase (ALT/SGPT) 36, Alkaline Phosphatase 102, Troponin I 0.076H, Total Protein 7.8, Albumin 4.0 04/23/23 23:17: White Blood Count 18.1H, Red Blood Count 4.36, Hemoglobin 13.3, Hematocrit 41, Mean Corpuscular Volume 94, Mean Corpuscular Hemoglobin 31, Mean Corpuscular Hemoglobin Concent 33, Red Cell Distribution Width 12.0, Platelet Count 379, Mean Platelet Volume 10.0, Immature Granulocyte % (Auto) 0, Neutrophils (%) (Auto) 91H, Lymphocytes (%) (Auto) 6L, Monocytes (%) (Auto) 2, Eosinophils (%) (Auto) 0, Basophils (%) (Auto) 0, Neutrophils # (Auto) 16.4H, Lymphocytes # (Auto) 1.2, Monocytes # (Auto) 0.4, Eosinophils # (Auto) 0.0, Basophils # (Auto) 0.0, Immature Granulocyte # (Auto) 0.1, Neutrophils % (Manual) 89, Lymphocytes % (Manual) 8, Monocytes % (Manual) 3, Blood Morphology Comment NORMAL 04/23/23 23:20: Urine Color YELLOW, Urine Clarity CLEAR, Urine pH 5.0, Urine Specific Dewey >=1.030, Urine Protein 3+H, Urine Glucose (UA) NEGATIVE, Urine Ketones NEGATIVE, Urine Nitrite NEGATIVE, Urine Bilirubin 1+H, Urine Urobilinogen 0.2, Urine Leukocyte Esterase NEGATIVE, Urine RBC (Auto) 3+H, Urine RBC TNTCH, Urine WBC 2- 5, Urine Squamous Epithelial Cells 0-2, Urine Crystals NONE, Urine Bacteria FEWH , Urine Casts PRESENT, Urine Hyaline Casts 2-5H, Urine Mucus NEGATIVE, Urine Culture Indicated YES, Salicylates Level < 5.0L, Urine Opiates Screen POSITIVEH, Urine Oxycodone Screen POSITIVEH, Urine Methadone Screen NEGATIVE, Urine Propoxyphene Screen NEGATIVE, Acetaminophen Level < 10L, Urine Barbiturates Screen NEGATIVE, Ur Tricyclic Antidepressants Screen NEGATIVE, Urine Phencyclidine Screen NEGATIVE, Urine Amphetamines Screen NEGATIVE, Urine Methamphetamines Screen NEGATIVE, Urine Benzodiazepines Screen POSITIVEH, Urine Cocaine Screen NEGATIVE, Urine Cannabinoids Screen NEGATIVE, Serum Alcohol < 10 04/23/23 23:22: Glucometer 98 04/24/23 04:28: White Blood Count 15.0H, Red Blood Count 3.91, Hemoglobin 11.8, Hematocrit 36, Mean Corpuscular Volume 92, Mean Corpuscular Hemoglobin 30, Mean Corpuscular Hemoglobin Concent 33, Red Cell Distribution Width 12.0, Platelet Count 320, Mean Platelet Volume 10.0, Immature Granulocyte % (Auto) 0, Neutrophils (%) (Auto) 88H, Lymphocytes (%) (Auto) 9L, Monocytes (%) (Auto) 3, Eosinophils (%) (Auto) 0, Basophils (%) (Auto) 0, Neutrophils # (Auto) 13.2H, Lymphocytes # (Auto) 1.4, Monocytes # (Auto) 0.4, Eosinophils # (Auto) 0.0, Basophils # (Auto) 0.0, Immature Granulocyte # (Auto) 0.0, Sodium Level 141, Potassium Level 3.5L, Chloride Level 112H, Carbon Dioxide Level 18L, Anion Gap 11, Blood Urea Nitrogen 15, Creatinine 1.37H, Estimat Glomerular Filtration Rate 46, BUN/Creatinine Rat io 11, Glucose Level 105, Calcium Level 8.7, Corrected Calcium 9.2, Phosphorus Level 4.7, Magnesium Level 2.1, Total Bilirubin 0.5, Aspartate Amino Transf (AST/SGOT) 37H, Alanine Aminotransferase (ALT/SGPT) 29, Alkaline Phosphatase 88, Troponin I 0.046H, Total Protein 6.6, Albumin 3.4, Triglycerides Level 115, Cholesterol Level 158, LDL Cholesterol Direct 108, VLDL Cholesterol 23, HDL Cholesterol 43 04/24/23 04:57: Blood Gas Puncture Site LEFT RADIAL, Blood Gas Patient Temperature 36.6, Arterial Blood pH 7.37, Arterial Blood Partial Pressure CO2 37, Arterial Blood Partial Pressure O2 75L, Arterial Blood HCO3 21L, Arterial Blood Total CO2 22.1, Arterial Blood Oxygen Saturation 96, Arterial Blood Base Excess -3.5L, Daniel Test YES-POS, Blood Gas Ventilator Setting NO, Blood Gas Inspired Oxygen 1 L 04/24/23 09:10: Glucometer 98 04/24/23 10:28: Influenza Type A (RT-PCR) Not Detected, Influenza Type B (RT-PCR) Not Detected, SARS-CoV-2 RNA (RT-PCR) Not Detected Physical Exam Physical Exam Vital Signs Vital Signs - First Documented 04/23/23 04/24/23 22:47 01:53 Temp 36.9 Pulse 72 Resp 16 B/P (MAP) 146/117 (127) Pulse Ox 96 O2 Delivery Nasal Cannula O2 Flow Rate 2.00 FiO2 28 Capillary Refill : Less Than 3 Seconds Height, Weight, BMI Height: 5'5" Weight: 175lbs. oz. 79.398679zr; 33.05 BMI Method:Stated General Appearance: No Apparent Distress HEENT: PERRL/EOMI Neck: Non Tender, Supple Respiratory: Chest Non Tender, Lungs Clear, Normal Breath Sounds, No Accessory Muscle Use, No Respiratory Distress Cardiovascular: Regular Rate, Rhythm, No Edema, No Gallop, No JVD, No Murmur Gastrointestinal: Non Tender, Soft Back: No CVA Tenderness Neurologic/Psychiatric: Alert Skin: Normal Color, Warm/Dry A/P-Cardiology Admission Diagnosis Acute respiratory failure AMS elevated troponin AMANDEEP Assessment/Plan Acute respiratory failue, questionable prescription drug overdose. Improving. Management per medical services AMS, unknown baseline,intellectually challenged, patient answering questions with yes and no at this time. Mildly elevated troponin, likely type II MS secondary to hypoxemia. 2D Echo done showing EF 50-55%, grade 1 diastolic dysfunction. AMANDEEP, improving. Continue to monitor renal function History of syncope, review of past medical records showing patient has been on Florinef in the past. Will continue to monitor Thank you for allowing us to participate in the management of Ms. Dunn. This is Luzma Haley PA-C, as a scribe for Dr. Pike Patient was seen and evaluated, I interviewed and examined the patient, appear to be oriented to place and time, Still lethargic, she has baseline intellectual challenge. But overall appears to be back to her baseline She had minimal elevation in troponin probably type II myocardial infarction secondary to hypoxemia Continue to monitor blood pressure, she has history of syncope, receiving IV fluid. Patient was on Florinef as an outpatient Clinical Quality Measures Stroke: Date of last known well: Apr 23, 2023 Symptoms onset unknown: Yes LUZMA BIGGS Apr 24, 2023 14:50 TONE PIKE MD Apr 24, 2023 17:10
[2023-04-24] MEDS ORDERED: MULT-1136 PO (14:51)
[2023-04-24] MEDS ORDERED: ASPI-1238 PO (14:51)
[2023-04-24] MEDS ORDERED: CALCIUM CARBONATE 500 MG CHEW TABLET PO PRN (18:30)
[2023-04-24] MEDS ORDERED: ONDANSETRON 4 MG ORAL DISSOLVE TABLET PO PRN (18:30)
[2023-04-24] MEDS: busPIRone 15 MG TABLET PO SCH (19:55)
[2023-04-24] MEDS ORDERED: ASPIRIN enteric coated 81MG TABLET PO SCH (21:00)
[2023-04-24] MEDS ORDERED: NON-FORMULARY MEDICATION 1 EA EA (Buspirone HCl 30 MG) PO SCH (21:00)
[2023-04-25] MEDS: ONDANSETRON INJECTION 4 MG/2 ML (SDV) IVP PRN ×2 (01:11→08:29)
[2023-04-25] MEDS: RT-ALBUTEROL SULF 2.5 MG/3 ML PRE-MIX VIAL INH SCH ×3 (03:29→15:12)
[2023-04-25 06:08] LABS: BASOPHILS % (AUTO) 0 % (0-10); EOSINOPHILS # (AUTO) 0.1 10^3/uL (0.0-0.3); EOSINOPHILS % (AUTO) 1 % (0-10); HEMATOCRIT 32 % (35-52); HEMOGLOBIN 10.7 g/dL (11.5-16.0); LYMPHOCYTES # (AUTO) 2.8 10^3/uL (1.0-4.0); LYMPHOCYTES % (AUTO) 26 % (12-44); MEAN CORPUSCULAR HEMOGLOBIN 31 pg (25-34); MEAN CORPUSCULAR HGB CONC 33 g/dL (32-36); MEAN CORPUSCULAR VOLUME 93 fL (80-99); MEAN PLATELET VOLUME 10.9 fL (9.0-12.2); MONOCYTES # (AUTO) 0.6 10^3/uL (0.0-1.0); MONOCYTES % (AUTO) 6 % (0-12); NEUTROPHILS # (AUTO) 7.1 10^3/uL (1.8-7.8); NEUTROPHILS % (AUTO) 66 % (42-75); PLATELET COUNT 284 10^3/uL (130-400); WHITE BLOOD COUNT 10.7 10^3/uL (4.3-11.0)
[2023-04-25 06:19] LABS: ALBUMIN 3.2 GM/DL (3.2-4.5); BILIRUBIN,TOTAL 0.5 MG/DL (0.1-1.0); CALCIUM 8.4 MG/DL (8.5-10.1); CREATININE SERUM 0.86 MG/DL (0.60-1.30); PHOSPHORUS 2.5 MG/DL (2.3-4.7); POTASSIUM 2.8 MMOL/L (3.6-5.0)
[2023-04-25] MEDS: MAGNESIUM 1 GM/100 ML IVPB 100 ML IV SCH (06:37)
[2023-04-25] MEDS: POTASSIUM CHLORIDE 20 MEQ TABLET PO SCH (06:38)
[2023-04-25] MEDS: POTASSIUM CL 10MEQ/50ML IVPB 50 ML IV SCH ×4 (06:39→08:21)
[2023-04-25] MEDS ORDERED: POTASSIUM CL 10MEQ/50ML IVPB 0 ML IV ONE (06:43)
[2023-04-25] MEDS ORDERED: THERAPEUTIC MULTIVITAMIN W/MINERALS TABLET PO SCH (07:00)
--- NOTE | 2023-04-25 08:09 | Cardiology Progress Note ---
Subjective Date Seen by Provider: Apr 25, 2023 Time Seen by Provider: 08:08 Subjective/Events-last exam Patient was seen at bedside, laying down comfortably, feeling better Objective-Cardiology Exam Last Set of Vital Signs Vital Signs 04/24/23 04/24/23 04/24/23 04/25/23 04/25/23 01:53 15:00 20:00 03:29 04:00 Temp 36.6 Pulse 73 Resp 20 B/P (MAP) 163/89 (113) Pulse Ox 93 O2 Delivery Room Air O2 Flow Rate 1.00 FiO2 28 I&O Intake and Output 04/25/23 00:00 Intake Total 1600 ml Output Total 1150 ml Balance 450 ml Intake Oral 400 ml IV Total 1200 ml Output Urine Total 1150 ml Daily Weight Change Unsure General: Alert, Oriented X3, Cooperative HEENT: Atraumatic, PERRLA Neck: Supple, No JVD, No Thyromegaly Lungs: Clear to Auscultation, Normal Air Movement Heart: Regular Rate, Normal S1, Normal S2, No Murmurs Abdomen: Normal Bowel Sounds, Soft, No Tenderness, No Hepatosplenomegaly, No Masses Extremities: No Clubbing, No Cyanosis, No Edema, Normal Pulses, No Tenderness/Swelling Skin: No Rashes, No Breakdown, No Significant Lesion Neuro: Normal Gait, Normal Speech, Strength at 5/5 X4 Ext, Normal Tone, Sensation Intact Psych/Mental Status: Mental Status NL, Mood NL Results Lab Laboratory Tests 04/25/23 04:28 A/P-Cardiology Admission Diagnosis Acute respiratory failure AMS elevated troponin AMANDEEP Assessment/Plan Acute respiratory failue, Prescription drug overdose. Improving. Management per medical services AMS, unknown baseline,intellectually challenged, patient answering questions with yes and no at this time. Mildly elevated troponin, likely type II PA secondary to hypoxemia. 2D Echo done showing EF 50-55%, grade 1 diastolic dysfunction. AMANDEEP, improving. Continue to monitor renal function History of syncope, review of past medical records showing patient has been on Florinef in the past. Will continue to monitor I will sign off at this point, please reconsult if needed TONE CALL MD Apr 25, 2023 08:09
[2023-04-25] MEDS: busPIRone 15 MG TABLET PO SCH (08:22)
[2023-04-25] MEDS: ENOXAPARIN 40 MG/0.4 ML SYRINGE SC SCH (08:22)
[2023-04-25] MEDS ORDERED: FLUoxetine 20 MG CAPSULE PO SCH (09:00)
[2023-04-25] MEDS ORDERED: OMEPRAZOLE 20 MG CAPSULE (NON-FORMULARY) PO SCH (09:00)
[2023-04-25] MEDS ORDERED: NON-FORMULARY MEDICATION 1 EA EA (Fluoxetine HCl 40 MG) PO SCH (09:00)
[2023-04-25] MEDS ORDERED: FLUDROCORTISONE 0.1 MG TABLET PO SCH (09:00)
[2023-04-25] MEDS ORDERED: PROPRANOLOL EXTENDED RELEASE 80 MG CAPSULE PO SCH (09:00)
[2023-04-25] MEDS ORDERED: PANTOPRAZOLE 20 MG TABLET PO SCH (09:00)
[2023-04-25] MEDS ORDERED: NON-FORMULARY MEDICATION 1 EA EA (Multivitamin 1 EACH) PO SCH (09:00)
[2023-04-25] MEDS ORDERED: POTASSIUM CHLORIDE 20 MEQ TABLET PO ONE ×2 (09:30→11:30)
[2023-04-25] MEDS ORDERED: MUPIROCIN 2% OINTMENT 22 GM TUBE NSEACH SCH (10:30)
[2023-04-25 11:53] VITALS: BP 158/89
[2023-04-25 14:01] LABS: CALCIUM 8.6 MG/DL (8.5-10.1); CREATININE SERUM 0.94 MG/DL (0.60-1.30); POTASSIUM 4.1 MMOL/L (3.6-5.0)
--- NOTE | 2023-04-25 14:02 | Physical Therapy Evaluation ---
PT Evaluation-General Medical Diagnosis Admission Date Apr 24, 2023 at 00:59 Medical Diagnosis: Increased troponin, AMS, Metabolic acidosis Onset Date: Apr 23, 2023 Therapy Diagnosis Therapy Diagnosis: Gait deficit, Strength deficit Height/Weight Height (Feet): 5 Height (Inches): 5 Weight (Pounds): 175 Precautions Precautions/Isolations: Fall Prevention, Standard Precautions Weight Bear Status Right Lower Extremity: Right Full Weight Bearing Left Lower Extremity: Left Full Weight Bearing Referral Physician: Dr. Vela Reason for Referral: Evaluation/Treatment Medical History Reviewed History: Yes Social History Home: Apartment Current Living Status: Alone Entry Into Home: Stairs With Railing PT Steps Into Home: 8 Prior Prior Level of Function SCALE: Activities may be completed with or without assistive devices. 7-Cptfrydfzl-qtjmsik completes the activity by him/herself with no assistance from a helper. 5-Set-up or Clean-up Assistance-helper sets up or cleans up; patient completes activity. [place] assists only prior to or following the activity. 4-Supervision or Touching Assistance-helper provides verbal cues and/or touching/steadying and/or contact guard assistance as patient completes activity. Assistance may be provided throughout the activity or intermittently. 3-Partial/Moderate Assistance-helper does LESS THAN HALF the effort. [place] lifts, holds or supports trunk or limbs, but provides less than half the effort. 2-Substantial/Maximal Assistance-helper does MORE THAN HALF the effort. [place] lifts or holds trunk or limbs and provides more than half the effort. 8-Aqvqnpbjd-cidalp does ALL the effort. Patient does none of the effort to complete the activity. Or, the assistance of 2 or more helpers is required for the patient to complete the activity. If activity was not attempted, code reason: 7-Patient Refused. 9-Not Applicable-not attempted and the patient did not perform the activity before the current illness, exacerbation or injury. 10-Not Attempted due to Environmental Limitations-(lack of equipment, weather restraints, etc.). 88-Not Attempted due to Medical Conditions or Safety Concerns. Bed Mobility: 6 Transfers (B,C,W/C): 6 Gait: 6 Stairs: 6 Indoor Mobility (Ambulation): Independent Stairs: Independent Prior Devices Use: Walker PT Evaluation-Current Subjective Patient lying supine in bed upon PT arrival, agreeable to treatment. Patient rates pain at 0/10 currently. Objective Patient Orientation: Person, Place, Time, Situation Attachments: Arias Catheter ROM/Strength ROM Lower Extremities WFLs BLEs all planes Strength Lower Extremities 4-/5 BLEs all planes Sensory Vision: Functional Hearing: Impaired Sensation Right Lower Extremit: Intact Sensation Left Lower Extremity: Intact Transfers Roll Left to Right (QC): 6 Sit to Lying (QC): 6 Lying to Sitting/Side of Bed(Q: 6 Sit to Stand (QC): 4 Chair/Ikc-ll-Yhfxp Xfer(QC): 4 Gait Does the Patient Walk?: Yes Mode of Locomotion: Walk Anticipated Mode of Locomotion: Walk Walk 10 feet (QC): 4 Walk 50 ft with 2 Turns(QC): 4 Walk 150 ft (QC): 4 Distance: 300' Gait Assistive Device: FWW Balance Sitting Static: Normal Sitting Dynamic: Normal Standing Static: Fair Standing Dynamic: Fair Assessment/Needs Patient currently at baseline for function, gait, bed mobility and transfers. No further PT needed at this time. Rehab Potential: Good PT Plan Treatment/Plan Treatment Plan: Discontinue PT Treatment Duration: Apr 25, 2023 Frequency: Time Time In: 1342 Time Out: 1356 DATE: Apr 25, 2023 Total Billed Treatment Time: 14 Total Billed Treatment Visit, MICHELLE VASQUEZ PT Apr 25, 2023 14:02
--- NOTE | 2023-04-25 15:15 | D/C HH Face to Face Order ---
D/C Face to Face Orders Instructions for Patient Via [facility], Patient Instructions/FollowUp: Follow up with primary provider within one to two weeks of discharge. Physician to follow Patient: ARINASEK Discharge Diet for Home: Regular Diet Patient Problems: Chronic pain Anxiety Patient Data-Allergies,Ht & Wt Patient Allergies: Coded Allergies: No Known Drug Allergies (Unverified , 06/26/14) Height (Feet): 5 Height (Inches): 5 Weight (Pounds): 175 Home Health Need/Face to Face Date of Face to Face: Apr 25, 2023 Clinical Findings: Unsteady gait I have seen Pt [id number]: Yes Discharged To: Home Diagnosis/Conditions: Altered mental status Fall chronic pain anxiety Patient is Homebound due to: Carol fall risk due to instabilty Homebound Status Due to the above stated illness, injury or surgical procedure (medical condition or diagnosis) and associated clinical findings, the patient is homebound because of his/her inability to leave home except with aid of a supportive device and/or person AND leaving the home requires a considerable and taxing effort or is medically contraindicated. Pt req the following assistanc: Aid of another person Home Health Nursing Orders Home Health Services Order: Nursing Services Certify Stmt I certify that this patient is under my care and that I, a nurse practitioner or a physician; a inventory control assistant working with me, had a face to face encounter that - meets the physician face to face encounter requirements with this patient as dated. LIDIA OLSON MD Apr 25, 2023 15:15
[2023-04-25 16:00] VITALS: BP 158/89
--- NOTE | 2023-04-25 18:53 | Physician Query-Final Dx ---
ABBEY HYED 04/25/23 1853: Final Diagnosis Give Final Diagnosis Please give Final Diagnosis The medical record reflects the following clinical scenario: The patient, in the setting of History/Risk factors, hypoxia on admission, unresponsive prior to admission, cardiac history unknown Clinical Findings troponin I 0.076, then 0.046, per Glendy Mcclelland: "mildly elevated troponin, likely type II SD secondary to hypoxemia", SpO2 84% sat on 2 L, EKG with nonspecific ST and T wave abnormality altered mental status on admission Treatment cardiology consult troponin monitoring echo, aspirin, supplemental O2 2 to 3 L, Question: Do you agree with the impression of likely type II SD secondary to hypoxemia per Glendy Mcclelland? Yes; will document likely type II SD due to hypoxia, present on admission in the Progress Notes No; will continue current documentation in the Progress Notes Other; will document explanation of clinical findings Clinically undetermined; no explanation for clinical findings Please clarify and document your clinical opinion in the Progress Notes and Discharge Summary including the definitive and/or presumptive diagnosis, (suspected or probable), related to the above clinical findings. Please include clinical findings supporting your diagnosis. In responding to this query, please exercise your independent professional judgment. The purpose of this communication is to more accurately reflect the complexity of your patients condition. The fact that a question is asked does not imply that any particular answer is desired or expected. Thank you for timely response to this clarification. Abbey yHde, MSN, RN Clinical Specimen Technician [phone] [email or web address] LIDIA OLSON MD 04/25/232137: Final Diagnosis Give Final Diagnosis Type II SD due to hypoxia ABBEY HYDE Apr 25, 2023 18:53 LIDIA OLSON MD Apr 25, 2023 21:38
--- NOTE | 2023-04-25 18:55 | Physician Query-Final Dx ---
ABBEY HYDE 04/25/23 1855: Final Diagnosis Give Final Diagnosis Please give Final Diagnosis The medical record reflects the following clinical scenario: The patient, in the setting of History/Risk factors History of psychiatric illnesses, hydrocodone and clonazepam home meds Clinical Findings Was found on floor unresponsive, CT Head: "No acute intracranial process is detected." UDS Positive for opiates oxycodone benzos, GCS 9-11 for 7 days then improved to 15, "suspect medication overuse" Treatment, Narcan by EMS and in ER, Close monitoring of Mental Status, CT Head, holding home sedating meds Question: Do you agree with the impression of prescription drug overdose per Glendy Mcclelland? Yes; will prescription drug overdose diagnosis/condition in the Progress Notes No; will continue current documentation in the Progress Notes Other; will document explanation of clinical findings Clinically undetermined; no explanation for clinical findings Please clarify and document your clinical opinion in the Progress Notes and Discharge Summary including the definitive and/or presumptive diagnosis, ( suspected or probable), related to the above clinical findings. Please include clinical findings supporting your diagnosis. In responding to this query, please exercise your independent professional judgment. The purpose of this communication is to more accurately reflect the complexity of your patients condition. The fact that a question is asked does not imply that any particular answer is desired or expected. Thank you for timely response to this clarification. Abbey Hyde, MSN, RN Clinical Orthopedic Rn [phone] LIDIA OLSON MD 04/25/239: Final Diagnosis Give Final Diagnosis Suspected prescription medication overdose ABBEY HYDE Apr 25, 2023 18:55 LIDIA OLSON MD Apr 25, 2023 21:39
--- NOTE | 2023-04-25 21:45 | Discharge Summary ---
Discharge Summary Hospital Course Problems/Diagnosis: (1) Altered mental status Status: Acute Assessment & Plan: Unknown downtime. CT head unremarkable, MRI head without acute findings, she slowly regained interactivity and was alert and oriented and able to express that she fell, but did not know why. She said it was possible she accidently took extra medication as she doesn't use a pill box and manages her own meds but has some difficulty with that. no respiratory distress. Suspect medication overuse, caregiver noted she had a large bottle of hydrocodone and could not find them and also had muscle relaxers spread across the floor. Home health for med assistance ordered on d/c and held one sedating med, recommend continued work on decreasing sedating medications. Qualifiers: Qualified Codes: R40.0 - Somnolence (2) Metabolic acidosis Status: Resolved Resolution Date/Time: 04/25/23 @ 21:44 Assessment & Plan: Improved with fluids overnight. (3) Elevated troponin Status: Resolved Resolution Date/Time: 04/25/23 @ 21:44 Assessment & Plan: Suspect type II KS due to hypoxia, appreciate Cardiology recommendations. (4) AMANDEEP (acute kidney injury) Status: Resolved Resolution Date/Time: 04/25/23 @ 21:44 Assessment & Plan: Improved overnight with IVF. (5) Hematuria Assessment & Plan: Unknown if new, will need outpatient eval. Hospital Course Date of Admission: Apr 24, 2023 at 00:59 Admission Diagnosis : Family Physician/Provider: [place] Date of Discharge: 04/25/23 Discharge Diagnosis: See problem list Hospital Course: See problem list Labs and Pending Lab Test: Laboratory Tests 04/25/23 04:28: White Blood Count 10.7, Red Blood Count 3.47L, Hemoglobin 10.7L, Hematocrit 32L, Mean Corpuscular Volume 93, Mean Corpuscular Hemoglobin 31, Mean Corpuscular Hemoglobin Concent 33, Red Cell Distribution Width 12.3, Platelet Count 284, Mean Platelet Volume 10.9, Immature Granulocyte % (Auto) 1, Neutrophils (%) (Au to) 66, Lymphocytes (%) (Auto) 26, Monocytes (%) (Auto) 6, Eosinophils (%) (Auto) 1, Basophils (%) (Auto) 0, Neutrophils # (Auto) 7.1, Lymphocytes # (Auto) 2.8, Monocytes # (Auto) 0.6, Eosinophils # (Auto) 0.1, Basophils # (Auto) 0.0, Immature Granulocyte # (Auto) 0.1, Sodium Level 140, Potassium Level 2.8L, Chloride Level 110H, Carbon Dioxide Level 22, Anion Gap 8, Blood Urea Nitrogen 12, Creatinine 0.86, Estimat Glomerular Filtration Rate 81, BUN/Creatinine Ratio 14, Glucose Level 89, Calcium Level 8.4L, Corrected Calcium 9.0, Phosphorus Level 2.5, Magnesium Level 2.0, Total Bilirubin 0.5, Aspartate Amino Transf (AST/SGOT) 20, Alanine Aminotransferase (ALT/SGPT) 19, Alkaline Phosphatase 75, Total Protein 6.0L, Albumin 3.2 04/25/23 13:37: Sodium Level 138, Potassium Level 4.1, Chloride Level 110H, Carbon Dioxide Level 23, Anion Gap 5, Blood Urea Nitrogen 11, Creatinine 0.94, Estimat Glomerular Filtration Rate 73, BUN/Creatinine Ratio 12, Glucose Level 120H, Calcium Level 8.6 Microbiology 04/24/23 MRSA Screen - Final, Complete See Comments 04/23/23 Urine Culture - Final, Complete NO GROWTH Home Meds Active Reported Aspirin EC (Aspirin) 81 Mg Tablet.dr 81 Mg PO HS Multivitamin 1 Each Tablet 1 Each PO DAILY Atorvastatin Calcium 40 Mg Tablet 40 Mg PO DAILY Quetiapine Fumarate 50 Mg Tablet 50-100 Mg PO HS TAKES 1 TO 2 (50MG) TABS Buspirone HCl 30 Mg Tablet 30 Mg PO BID Clonazepam 0.5 Mg Tablet 0.5 Mg PO DAILY Fluoxetine HCl 40 Mg Capsule 40 Mg PO DAILY Hydrocodone-Acetamin 5-325 mg (Hydrocodone/Acetaminophen) 5 Mg-325 Mg Tablet 1 Ea PO Q8H PRN Omeprazole 20 Mg Capsule.dr 20 Mg PO DAILY Fludrocortisone Acetate 0.1 Mg Tab 0.1 Mg PO DAILY Ondansetron Odt (Ondansetron) 4 Mg Tab.rapdis 4 Mg PO TID PRN Propranolol HCl ER (Propranolol HCl) 80 Mg Cap.sa.24h 80 Mg PO DAILY Gabapentin 600 Mg Tablet 600 Mg PO TID Assessment/Pt DC Instructions Follow up with primary within a week of discharge. Discharge Diet: No Restrictions Activity as Tolerated: Yes Discharge Physical Examination Allergies: Coded Allergies: No Known Drug Allergies (Unverified , 11/15/14) General Appearance: No Apparent Distress, WD/WN Respiratory: Lungs Clear, Normal Breath Sounds Cardiovascular: Regular Rate, Rhythm, No Murmur Gastrointestinal: Normal Bowel Sounds, Non Tender, Soft Skin: Normal Color, Warm/Dry Neurologic/Psychiatric: Alert, Oriented x3, Normal Mood/Affect Clinical Quality Measures Stroke: Date of last known well: Apr 23, 2023 Symptoms onset unknown: Yes LIDIA OLSON MD Apr 25, 2023 21:45
== END 2023-04-25 16:00 | disposition home health service (06) | DRG 917 ==
LOC: EDUNIT# 22:44 → ER 22:45 → ICU 04-24 00:59 → 4TH 04-25 11:32
PROVIDERS: ADMIT Family Medicine; ATTEND Family Medicine
DX: T42.8X1A Poisoning by antiparkinsonism drugs and other central muscle-tone depressants, accidental (unintentional), initial encounter (principal); G92.8 Other toxic encephalopathy; I21.A1 Myocardial infarction type 2; J96.01 Acute respiratory failure with hypoxia; J96.02 Acute respiratory failure with hypercapnia; N17.9 Acute kidney failure, unspecified; E87.21 Acute metabolic acidosis; K21.9 Gastro-esophageal reflux disease without esophagitis; F41.9 Anxiety disorder, unspecified; F32.A Depression, unspecified; J44.9 Chronic obstructive pulmonary disease, unspecified; G43.909 Migraine, unspecified, not intractable, without status migrainosus; G89.29 Other chronic pain; M54.9 Dorsalgia, unspecified; T43.221A Poisoning by selective serotonin reuptake inhibitors, accidental (unintentional), initial encounter; T43.211A Poisoning by selective serotonin and norepinephrine reuptake inhibitors, accidental (unintentional), initial encounter; Z20.822 Contact with and (suspected) exposure to COVID-19; R31.9 Hematuria, unspecified; D72.829 Elevated white blood cell count, unspecified
CPT/HCPCS: 36415; 36600; 51702; 70450; 70551; 71045; 72125; 80048; 80053; 80061; 80306; 80320; 80329; 81000; 82805; 82947; 83735; 84100; 84484; 85007; 85025; 85027; 85379; 85610; 85730; 87081; 87088; 87636; 93005; 93041; 93306; 94640

== ENCOUNTER 2023-05-14 19:57 | Inpatient (IN) | payer MEDICARE, MEDICAID ==
[~2023-05-14] VITALS: Ht 166 cm; Wt 89.2 kg
[~2023-05-14 19:57] MED LIST changes: +ASPI-1238 PO; +ATOR40TA70 PO; +BACL10TA PO; +BUSP30TA2 PO; +CLON0.5T4 PO; +FLUO40CA PO; +MULT-1136 PO; +QUET50TA23 PO; +TRAZODONE
[2023-05-14 20:20] LABS: BASOPHILS % (AUTO) 0 % (0-10); EOSINOPHILS % (AUTO) 0 % (0-10); HEMATOCRIT 39 % (35-52); HEMOGLOBIN 12.9 g/dL (11.5-16.0); LYMPHOCYTES # (AUTO) 2.5 10^3/uL (1.0-4.0); LYMPHOCYTES % (AUTO) 12 % (12-44); MEAN CORPUSCULAR HEMOGLOBIN 30 pg (25-34); MEAN CORPUSCULAR HGB CONC 33 g/dL (32-36); MEAN CORPUSCULAR VOLUME 92 fL (80-99); MEAN PLATELET VOLUME 9.7 fL (9.0-12.2); MONOCYTES # (AUTO) 0.8 10^3/uL (0.0-1.0); MONOCYTES % (AUTO) 4 % (0-12); NEUTROPHILS # (AUTO) 17.6 10^3/uL (1.8-7.8); NEUTROPHILS % (AUTO) 83 % (42-75); PLATELET COUNT 389 10^3/uL (130-400); WHITE BLOOD COUNT 21.1 10^3/uL (4.3-11.0)
[2023-05-14 20:22] VITALS: BP 161/107
[2023-05-14 20:41] LABS: PROTHROMBIN TIME PATIENT 13.5 SEC (12.2-14.7)
[2023-05-14 20:53] LABS: ALANINE AMINOTRANSFERASE 14 U/L (0-55); ALBUMIN 3.7 GM/DL (3.2-4.5); ALKALINE PHOSPHATASE 80 U/L (40-136); BILIRUBIN,TOTAL 0.4 MG/DL (0.1-1.0); BUN/CREATININE RATIO 6; CALCIUM 9.1 MG/DL (8.5-10.1); CARBON DIOXIDE 21 MMOL/L (21-32); CHLORIDE 110 MMOL/L (98-107); CREATININE SERUM 2.69 MG/DL (0.60-1.30); GFR ESTIMATED 21; GLUCOSE 119 MG/DL (70-105); POTASSIUM 4.6 MMOL/L (3.6-5.0); SODIUM 143 MMOL/L (135-145); TOTAL PROTEIN 7.4 GM/DL (6.4-8.2); TRIGLYCERIDES 221 MG/DL (<150)
[2023-05-14 20:57] LABS: LYMPHOCYTES % (MANUAL) 17 %; MICROCYTOSIS SLIGHT; MONOCYTES % (MANUAL) 3 %; NEUTROPHILS % (MANUAL) 80 %
--- NOTE | 2023-05-14 20:58 | ED General ---
General Chief Complaint: Altered Mental Status Stated Complaint: ALTERED MENTAL STATUS Nursing Triage Note: PT TO [facility] 9 BY [facility] WITH C/O AMS, FOUND ON THE FLOOR, ONLY RESPONSIVE TO PAINFUL STIMULI Source of Information: Patient Exam Limitations: No Limitations History of Present Illness Date Seen by Provider: May 14, 2023 Time Seen by Provider: 19:58 Initial Comments Here by EMS with report of being found on the floor in her apartment at home. Apparently she did not get up to get her food today and neighbors became concerned and then checked on her and found her on the floor. Last known well time unknown. EMS was called. On their arrival, patient was moaning but not answering questions following commands. She has her arms tensed upwards and legs tensed. EMS reports blood pressure in the 90s systolic but O2 sat in the mid 90s and blood sugar at 107. Apparently she was hospitalized a couple weeks ago for hypernatremia. Otherwise unable to obtain any information from the patient. EMS was unable to initiate IV and initiated IO to the left proximal tibia with normal saline running slowly. EMS reports that the neighbors did state the patient had fallen recently but they were unable to gain more information than that. Timing/Duration: Other (Unknown last well time.) Severity: Severe Associated Systoms: Weakness Allergies and Home Medications Allergies Coded Allergies: No Known Drug Allergies (Unverified , 06/26/14) Patient Home Medication List Home Medication List Reviewed: Yes Aspirin (Aspirin EC) 81 Mg Tablet.dr, 81 MG PO HS, (Reported) Entered as Reported by: CATRACHITA YEE on 04/24/23 1451 Atorvastatin Calcium (Atorvastatin Calcium) 40 Mg Tablet, 40 MG PO DAILY, (Reported) Entered as Reported by: LILIAN SCHAFER on 04/23/232250 Buspirone HCl (Buspirone HCl) 30 Mg Tablet, 30 MG PO BID, (Reported) Entered as Reported by: LILIAN SCHAFER on 04/23/232250 Clonazepam (Clonazepam) 0.5 Mg Tablet, 0.5 MG PO DAILY, (Reported) Entered as Reported by: LILIAN SCHAFER on 04/23/232250 Fludrocortisone Acetate (Fludrocortisone Acetate) 0.1 Mg Tab, 0.1 MG PO DAILY, (Reported) Entered as Reported by: SYLVIE HAINES on 12/25/21 1427 Fluoxetine HCl (Fluoxetine HCl) 40 Mg Capsule, 40 MG PO DAILY, (Reported) Entered as Reported by: LILIAN SCHAFER on 04/23/232250 Gabapentin (Gabapentin) 600 Mg Tablet, 600 MG PO TID, (Reported) Entered as Reported by: BEAU ARCHER on 07/21/21 181 Hydrocodone/Acetaminophen (Hydrocodone-Acetamin 5-325 mg) 5 Mg-325 Mg Tablet, 1 EA PO Q8H PRN for PAIN-MODERATE (5-7), (Reported) Entered as Reported by: LILIAN SCHAFER on 04/23/232250 Multivitamin (Multivitamin) 1 Each Tablet, 1 EACH PO DAILY, (Reported) Entered as Reported by: CATRACHITA YEE on 04/24/23 145 Omeprazole (Omeprazole) 20 Mg Capsule.dr, 20 MG PO DAILY, (Reported) Entered as Reported by: SYLVIE HAINES on 12/25/21 142 Ondansetron (Ondansetron Odt) 4 Mg Tab.rapdis, 4 MG PO TID PRN for NAUSEA/VOMITING, (Reported) Entered as Reported by: SYLVIE HAINES on 12/25/21 1425 Propranolol HCl (Propranolol HCl ER) 80 Mg Cap.sa.24h, 80 MG PO DAILY, (Reported) Entered as Reported by: SYLVIE HAINES on 12/25/21 1424 Quetiapine Fumarate (Quetiapine Fumarate) 50 Mg Tablet, 50-100 MG PO HS, (Reported) Entered as Reported by: LILIAN SCHAFER on 04/23/232250 Review of Systems Review of Systems Constitutional: see HPI Unable to complete review of systems due to altered mental status Past Zuqmrjf-Cnohxg-Egasad Hx Patient Social History Tobacco Use?: Yes Substance use?: Unable to obtain Alcohol Use?: Unable to obtain Pt feels they are or have been: Unable to obtain Immunizations Up To Date First/Initial COVID19 Vaccinat: UNSURE OF DATE Second COVID19 Vaccination James: UNSURE OF DATE. 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 History: Tubal Ligation, Menopausal Genitourinary: Yes Kidney Infection, UTI-Chronic Gastrointestinal: Yes Gastroesophageal Reflux Musculoskeletal: Yes (R TIB/FIB FX/ORIF;L FOREARM FX/ORIF;POOR AMBULATION-USES WALKER;CHR NECK PN) Chronic Back Pain, Fractures Endocrine: No HEENT: Yes Hearing Impairment: Hard of Hearing, Bilateral Hearing Aide Cancer: No Psychosocial: Yes Anxiety, Depression Integumentary: Yes (EXTENSIVE HISTORY OF MRSA WITH I&D'S) Family Medical History Information obtained from historical records due to patient's altered mental status Physical Exam-Suspected Sepsis Physical Exam Vital Signs Vital Signs - First Documented 05/14/23 05/14/23 05/14/23 20:00 20:22 20:31 Temp 36.9 Pulse 59 Resp 19 B/P (MAP) 187/126 Pulse Ox 97 O2 Delivery Room Air FiO2 40 Capillary Refill : Blood Pressure Mean: 146 Height, Weight, BMI Height: 5'5" Weight: 175lbs. oz. 79.862410ao; BMI Method:Stated General Appearance: Mild Distress, Other (Unresponsive except to painful stimuli) HEENT: PERRL/EOMI, Other (Membranes dry) Neck: Supple; No Lymphadenopathy (L), No Lymphadenopathy (R) Respiratory: No Wheezing; Other (Minimal snoring respirations) Cardiovascular: Regular Rate, Rhythm, No Murmur Gastrointestinal: Non Tender, Soft Extremity: Non Tender, No Pedal Edema, Other (Arms contracted and legs tense) Neurologic/Psychiatric: Other (Unresponsive and moans to painful stimuli) Skin: normal color, warm/dry Focused Exam Lactate Level 05/14/23 20:05: Lactic Acid Level 2.53*H Lactic Acid Level Laboratory Tests Test 05/14/23 20:05 Lactic Acid Level 2.53 MMOL/L (0.50-2.00) *H Procedures/Interventions Lumen: triple Central Line Procedure: betadine prep, sterile drapes applied, sterile dressing applied Position: internal jugular (R) Complications: none Post Position: sutured, good blood return, position confirmed w/ CXR Cleaned and prepped in usual fashion. Placed line via ultrasound guidance to the right IJ using Seldinger technique. Good flush and return. Post placement x-ray shows no pneumothorax and line in good position Date of ETT Placement: May 14, 2023 Time of ETT Placement: 2021 Intubation Method: orotracheal Tube Size: 7.5 Medications: Etomidate, Fentanyl, Succinylcholine, Versed Positive End Tide CO2: Yes Breath Sounds after Intubation: bilateral-equal Intubation Complications: no complications Post Intubation Xray: Yes ET tube above the meaghan and advanced 1 cm. Intubated via emergent conditions via glide scope x1 attempt. RSI with 20 mg of etomidate and 100 mg of succinylcholine. Postintubation sedation with Versed 5 mg IV and fentanyl 50 mcg IV pending propofol administration to start at 40 mcg/kg/min Progress/Results/Core Measures Suspected Sepsis SIRS Temperature: Pulse: 79 Respiratory Rate: Laboratory Tests 05/14/23 20:05: White Blood Count 21.1H Blood Pressure 187 /126 Mean: 146 05/14/23 20:05: Lactic Acid Level 2.53*H Laboratory Tests 05/14/23 20:05: Creatinine 2.69H, INR Comment 1.0, Platelet Count 389, Total Bilirubin 0.4 Results/Orders Lab Results Laboratory Tests Test 05/14/23 20:05 05/14/23 20:12 05/14/23 20:18 05/14/23 21:05 Range/Units White Blood Count 21.1 H 4.3-11.0 10^3/uL Red Blood Count 4.28 3.80-5.11 10^6/uL Hemoglobin 12.9 11.5-16.0 g/dL Hematocrit 39 35-52 % Mean Corpuscular Volume 92 80-99 fL Mean Corpuscular Hemoglobin 30 25-34 pg Mean Corpuscular Hemoglobin Concent 33 32-36 g/dL Red Cell Distribution Width 12.8 10.0-14.5 % Platelet Count 389 130-400 10^3/uL Mean Platelet Volume 9.7 9.0-12.2 fL Immature Granulocyte % (Auto) 1 % Neutrophils (%) (Auto) 83 H 42-75 % Lymphocytes (%) (Auto) 12 12-44 % Monocytes (%) (Auto) 4 0-12 % Eosinophils (%) (Auto) 0 0-10 % Basophils (%) (Auto) 0 0-10 % Neutrophils # (Auto) 17.6 H 1.8-7.8 10^3/uL Lymphocytes # (Auto) 2.5 1.0-4.0 10^3/uL Monocytes # (Auto) 0.8 0.0-1.0 10^3/uL Eosinophils # (Auto) 0.0 0.0-0.3 10^3/uL Basophils # (Auto) 0.0 0.0-0.1 10^3/uL Immature Granulocyte # (Auto) 0.2 H 0.0-0.1 10^3/uL Neutrophils % (Manual) 80 % Lymphocytes % (Manual) 17 % Monocytes % (Manual) 3 % Microcytosis SLIGHT Prothrombin Time 13.5 12.2-14.7 SEC INR Comment 1.0 0.8-1.4 Activated Partial Thromboplast Time 27 24-35 SEC Sodium Level 143 135-145 MMOL/L Potassium Level 4.6 3.6-5.0 MMOL/L Chloride Level 110 H 98-107 MMOL/L Carbon Dioxide Level 21 21-32 MMOL/L Anion Gap 12 5-14 MMOL/L Blood Urea Nitrogen 17 7-18 MG/DL Creatinine 2.69 H 0.60-1.30 MG/DL Estimat Glomerular Filtration Rate 21 BUN/Creatinine Ratio 6 Glucose Level 119 H 70-105 MG/DL Lactic Acid Level 2.53 *H 0.50-2.00 MMOL/L Calcium Level 9.1 8.5-10.1 MG/DL Corrected Calcium 9.3 8.5-10.1 MG/DL Total Bilirubin 0.4 0.1-1.0 MG/DL Aspartate Amino Transf (AST/SGOT) 18 5-34 U/L Alanine Aminotransferase (ALT/SGPT) 14 0-55 U/L Alkaline Phosphatase 80 40-136 U/L Troponin I < 0.028 <0.028 NG/ML Total Protein 7.4 6.4-8.2 GM/DL Albumin 3.7 3.2-4.5 GM/DL Triglycerides Level 221 H <150 MG/DL Salicylates Level < 5.0 L 5.0-20.0 MG/DL Acetaminophen Level < 10 L 10-30 UG/ML Serum Alcohol < 10 <10 MG/DL Glucometer 112 H 70-110 MG/DL Urine Color ORANGE Urine Clarity CLOUDY Urine pH 5.0 5-9 Urine Specific [place] >=1.030 1.016-1.022 Urine Protein 3+ H NEGATIVE Urine Glucose (UA) NEGATIVE NEGATIVE Urine Ketones 1+ H NEGATIVE Urine Nitrite NEGATIVE NEGATIVE Urine Bilirubin 2+ H NEGATIVE Urine Urobilinogen 1.0 < = 1.0 MG/DL Urine Leukocyte Esterase NEGATIVE NEGATIVE Urine RBC (Auto) 3+ H NEGATIVE Urine RBC 5-10 H /HPF Urine WBC 5-10 H /HPF Urine Squamous Epithelial Cells NONE /HPF Urine Crystals PRESENT H /LPF Urine Calcium Oxalate Crystals LARGE H /LPF Urine Bacteria LARGE H /HPF Urine Casts PRESENT /LPF Urine Hyaline Casts 10-25 H /LPF Urine Coarse Granular Casts 2-5 H /LPF Urine Mucus NEGATIVE /LPF Urine Culture Indicated CULTURE PENDING Urine Opiates Screen NEGATIVE NEGATIVE Urine Oxycodone Screen NEGATIVE NEGATIVE Urine Methadone Screen NEGATIVE NEGATIVE Urine Propoxyphene Screen NEGATIVE NEGATIVE Urine Barbiturates Screen NEGATIVE NEGATIVE Ur Tricyclic Antidepressants Screen POSITIVE H NEGATIVE Urine Phencyclidine Screen NEGATIVE NEGATIVE Urine Amphetamines Screen NEGATIVE NEGATIVE Urine Methamphetamines Screen NEGATIVE NEGATIVE Urine Benzodiazepines Screen POSITIVE H NEGATIVE Urine Cocaine Screen NEGATIVE NEGATIVE Urine Cannabinoids Screen NEGATIVE NEGATIVE Blood Gas Puncture Site RR Blood Gas Patient Temperature 36.9 Arterial Blood pH 7.32 *L 7.37-7.43 Arterial Blood Partial Pressure CO2 46 H 35-45 MMHG Arterial Blood Partial Pressure O2 91 79-93 MMHG Arterial Blood HCO3 23 23-27 MMOL/L Arterial Blood Total CO2 24.2 21.0-31.0 MMOL/L Arterial Blood Oxygen Saturation 96 94-100 % Arterial Blood Base Excess -2.5 -2.5-2.5 MMOL/L Daniel Test YES-POS Blood Gas Ventilator Setting YES Blood Gas Inspired Oxygen 40% Test 05/14/23 21:23 Range/Units Influenza Type A (RT-PCR) Not Detected Not Detecte Influenza Type B (RT-PCR) Not Detected Not Detecte SARS-CoV-2 RNA (RT-PCR) Not Detected Not Detecte My Orders Orders - TRUDY URIOSTEGUI MD Urinalysis (05/14/23 20:11) Urine Culture (05/14/23 20:11) Protime With Inr (05/14/23 20:11) Partial Thromboplastin Time (05/14/23 20:11) Chest 1 View, Ap/Pa Only (05/14/23 20:11) Ed Iv/Invasive Line Start (05/14/23 20:11) Troponin I Addy (05/14/23 20:11) Vital Signs Adult Sepsis Patie Q15M (05/14/23 20:11) O2 (05/14/23 20:11) Remove Rings In Anticipation O (05/14/23 20:11) Lactic Acid Analyzer (05/14/23 20:11) Influenza A And B By Pcr (05/14/23 20:11) Covid 19 Inhouse Test (05/14/23 20:11) Ct Head Wo (05/14/23 20:11) Propofol Drip (Icu) (Propofol Drip (Icu) (05/14/23 20:15) Sedation Communication Q48H (05/14/23 20:11) Triglycerides (05/14/23 20:11) Triglycerides (05/16/23 20:11) Triglycerides (05/18/23 20:11) Cbc And Automated Diff (05/14/23 20:11) Comprehensive Metabolic Panel (05/14/23 20:11) Blood Culture (05/14/23 20:11) Sputum Culture (05/14/23 20:11) Manual Differential (05/14/23 20:05) Arterial Blood Gas (05/14/23 20:52) Propofol Drip (Icu) (Propofol Drip (Icu) (05/14/23 20:26) Catheter(Urinary) Insert & Ass 03,15 (05/14/23 21:15) Ng Tube Insert & Assessment (05/14/23 21:15) Acetaminophen (05/14/23 21:15) Alcohol (05/14/23 21:15) Drug Screen Stat (Urine) (05/14/23 21:15) Salicylate (05/14/23 21:15) Ekg Tracing (05/14/23 21:17) Ns Iv 1000 Ml (Ns Iv 1000 Ml) (05/14/23 21:17) Code/Resuscitation (05/14/23 21:54) Ed Admission (Communication) (05/14/23 21:54) Ampicillin/Sulbactam Injection (05/14/23 22:00) Vital Signs/I&O 10/3/05/14/23 05/14/23 05/14/23 20:00 20:22 20:22 20:31 Temp 36.9 Pulse 59 76 79 Resp 19 B/P (MAP) 187/126 Pulse Ox 97 98 100 O2 Delivery Room Air Mechanical Ventilator FiO2 40 05/14/23 21:00 Pulse 75 B/P (MAP) 189/134 Capillary Refill : Blood Pressure Mean: 146 Progress Note : Progress Note And evaluated on arrival by EMS. Patient is essentially unresponsive with concerns for airway compromise. Assessment made and we will moved on to intubation and central line due to poor access. Small IV started to the left forearm by nursing. We will initiate sepsis protocol labs including CBC, CMP, blood cultures, lactic acid, coags, UA with culture, sputum culture we will get COVID and influenza screen. Normal saline 1 L bolus initiated. Due to unresponsiveness we will get chest x-ray and CT of the head as well. We will get ABG after intubation. Monitor patient. Differential diagnosis includes sepsis, pneumonia, viral infection, electrolyte abnormality, dehydration, stroke, intracranial hemorrhage, overdose and other toxic effects 2111: Intubation and central line are complete. Patient is on the ventilator at a rate of 18 with tidal volume of 450 and PEEP of 5. ABG is pending. Chest x- ray after intubation and central line as well as NG tube placement shows tubes in good position although ET tube will be advanced 1 cm. Patient is going to CT now. We initiated propofol at 40 mcg/kg/min and have titrated up to 60 mcg/kg/min now as patient was showing some signs of bucking the vent. Lactic acid is noted to be elevated. Urine output is scant. We will continue IV fluids and first liter bolus is going now and we will initiate second liter bolus. CBC shows markedly elevated white count at 21,000 with elevated ANC. CMP shows grossly normal electrolytes and elevated serum creatinine that is i ncreased from previous hospitalization in mid April. At that time her creatinine was elevated on admission but improved to 1.5. Lactic acid is elevated at 2.3. Troponin is negative. LFTs are normal. Pending UA. Have added UDS and Tylenol, salicylate and alcohol levels as well. 2128: CT of the head reviewed by me and shows no obvious intracranial hemorrhage on my interpretation. ABG reviewed and shows pH of 7.32 with elevated PCO2 at 46. Have changed vent settings to tidal volume of 470 and respiratory rate of 20. Pending UDS and tox screens. Coags are negative. 2204: I have spoken with the on-call resident for [facility] and reviewed all the current information findings and she accepts patient for admission, inpatient status to the ICU. I did speak with the eICU doc on-call and reviewed all current findings and data. Patient does have elevated white count and I believe this is likely dehydration but this could represent aspiration. UA does show bacteria without nitrites or leukocytes. After discussion with the eICU team, he is recommending Unasyn 3 g IV and I will order that now. Patient's current blood pressure is 149/91 with heart rate of 70 and O2 sat of 96% on vent with above settings at FiO2 of 40%. Admit, inpatient status, To ICU, critical condition but stable. ECG Initial ECG Impression Date: May 14, 2023 Initial ECG Impression Time: 21:26 Initial ECG Rate: 75 Initial ECG Rhythm: Normal Sinus Comment This rhythm with left atrial abnormality. Normal axis. No evidence of ST elevation MA. Interpreted by me. Diagnostic Imaging Diagonstic Imaging: CT Plain Films/CT/US/NM/MRI: head Comments [facility]. [place], [place] NAME: MIAH HERNANDEZ [facility] REC#: [id number] PT STATUS: REG ER : 1970 PHYSICIAN: TRUDY URIOSTEGUI MD ADMIT DATE: 05/14/23/ER Signed Date of Exam:05/14/23 CT HEAD WO PROCEDURE: CT head without contrast. TECHNIQUE: Multiple contiguous axial images were obtained through the brain without the use of intravenous contrast. Auto Exposure Controls were utilized during the CT exam to meet ALARA standards for radiation dose reduction. INDICATION: Altered mental status COMPARISON: 04/23/2023. FINDINGS: No intracranial hyperdense hemorrhage or space-occupying mass. No hydrocephalus or midline shift. Castillo-white matter differentiation is well-preserved. Basilar cisterns are widely patent. ET and OG tubes are noted. IMPRESSION: No acute intrarenal process by CT. Dictated by: Dictated on workstation # [id number] Dict: 05/14/232122 Trans: 05/14/232129 REPLACED BY [facility] [id number] Interpreted by: SO PÉREZ MD Electronically signed by: SO PÉREZ MD 05/14/232129 Diagonstic Imaging: Xray Plain Films/CT/US/NM/MRI: chest Comments [facility] [place] [place] NAME: MIAH HERNANDEZ [facility] REC#: [id number] PT STATUS: REG ER : 1970 PHYSICIAN: TRUDY URIOSTEGUI MD ADMIT DATE: 05/14/23/ER Signed Date of Exam:05/14/23 CHEST 1 VIEW, AP/PA ONLY CHEST 1 VIEW, AP/PA ONLY Indication: Altered mental status. Intubation. Comparison: 04/23/2023 Findings: ET tube has tip 7 cm above the meaghan. Enteric tube terminates in the proximal stomach. Right IJ central venous catheter has tip terminating in upper SVC. Visible lungs are clear. No pleural effusion or pneumothorax. Normal heart size. Impression: 1. High riding ET tube. Consider advancement of approximately 2 cm. 2. Other support devices are well-positioned. Dictated by: Dictated on workstation # [id number] Dict: 05/14/232121 Trans: 05/14/232129 SHAKA [id number] Interpreted by: SO PÉREZ MD Electronically signed by: SO PÉREZ MD 05/14/232129 Critical Care Note Critical Care Start Time: 19:58 Stop Time: 22:05 Total Time (minutes) 45 minutes excluding separately billable procedures to perform evaluation and management of life-threatening condition. See progress note for details. Departure Communication (Admissions) Time/Spoke to Admitting Phy: 21:50 Time/Spoke to Consulting Phy: 21:58 Impression Primary Impression: Respiratory failure Qualified Codes: J96.01 - Acute respiratory failure with hypoxia Additional Impression: Altered mental status Qualified Codes: R41.82 - Altered mental status, unspecified Disposition: ADMITTED INPATIENT Condition: Critical Admissions Decision to Admit Reason: Admit from ER (General) Decision to Admit/Date: May 14, 2023 Time/Decision to Admit Time: 21:50 Departure-Patient Inst. [facility]: [facility] [place] (PCP/Family) Primary Care Physician TRUDY URIOSTEGUI MD May 14, 2023 20:58
[2023-05-14 21:14] LABS: ABG BASE EXCESS -2.5 MMOL/L (-2.5-2.5); ABG OXYGEN SATURATION 96 % (94-100); ABG PCO2 46 MMHG (35-45); ABG PO2 91 MMHG (79-93); ABG TCO2 24.2 MMOL/L (21.0-31.0)
[2023-05-14 21:15] LABS: ALLENS TEST YES-POS; INSPIRED O2 40%; PATIENT TEMP 36.9; VENTILATOR YES
[2023-05-14 21:15] LABS: CLARITY,URINE CLOUDY; COLOR,URINE ORANGE; GLUCOSE, URINE (UA) NEGATIVE (NEGATIVE); KETONES,URINE 1+ (NEGATIVE); NITRITE,URINE NEGATIVE (NEGATIVE); PROTEIN,URINE 3+ (NEGATIVE)
[2023-05-14 21:16] LABS: ABG PH 7.32 (7.37-7.43)
[2023-05-14 21:16] LABS: BACTERIA,URINE LARGE /HPF; BILIRUBIN,URINE 2+ (NEGATIVE); CALCIUM OXALATE CRYSTALS,UR LARGE /LPF; LEUKOCYTE ESTERASE ,URINE NEGATIVE (NEGATIVE)
[2023-05-14] MEDS ORDERED: NS IV 1000 ML 1,000 ML IV STA (21:17)
--- NOTE | 2023-05-14 21:28 | Diagnostic Imaging Report ---
PROCEDURE: CT head without contrast. TECHNIQUE: Multiple contiguous axial images were obtained through the brain without the use of intravenous contrast. Auto Exposure Controls were utilized during the CT exam to meet ALARA standards for radiation dose reduction. INDICATION: Altered mental status COMPARISON: 04/23/2023. FINDINGS: No intracranial hyperdense hemorrhage or space-occupying mass. No hydrocephalus or midline shift. Castillo-white matter differentiation is well-preserved. Basilar cisterns are widely patent. ET and OG tubes are noted. IMPRESSION: No acute intrarenal process by CT. Dictated by: Dictated on workstation # [id number]
--- NOTE | 2023-05-14 21:29 | Diagnostic Imaging Report ---
CHEST 1 VIEW, AP/PA ONLY Indication: Altered mental status. Intubation. Comparison: 04/23/2023 Findings: ET tube has tip 7 cm above the meaghan. Enteric tube terminates in the proximal stomach. Right IJ central venous catheter has tip terminating in upper SVC. Visible lungs are clear. No pleural effusion or pneumothorax. Normal heart size. Impression: 1. High riding ET tube. Consider advancement of approximately 2 cm. 2. Other support devices are well-positioned. Dictated by: Dictated on workstation # [id number]
[2023-05-14 21:34] LABS: SALICYLATE < 5.0 MG/DL (5.0-20.0)
[2023-05-14 21:39] LABS: AMPHETAMINE SCREEN, URINE NEGATIVE (NEGATIVE); BARBITURATE SCREEN URINE NEGATIVE (NEGATIVE); CANNABINOID SCREEN, URINE NEGATIVE (NEGATIVE); COCAINE SCREEN URINE NEGATIVE (NEGATIVE); METHADONE STAT NEGATIVE (NEGATIVE); OPIATE SCREEN URINE NEGATIVE (NEGATIVE); OXYCODONE STAT NEGATIVE (NEGATIVE); PROPOXYPHENE STAT NEGATIVE (NEGATIVE); TRICYCLIC ANTIDEPRESSANTS SCRE POSITIVE (NEGATIVE)
[2023-05-14 21:49] LABS: ACETAMINOPHEN < 10 UG/ML (10-30)
[2023-05-14] MEDS ORDERED: AMPICILLIN/Sulbactam INJECTION 3 GM in NS (IVPB) 100 ML 100 ML IV ONE (22:00)
[2023-05-14 22:15] VITALS: BP 176/99
[2023-05-14 22:30] VITALS: BP 146/92
--- NOTE | 2023-05-14 22:32 | Tele-ICU Progress Note ---
Subjective Date Seen by a Provider: May 14, 2023 Time Seen by a Provider: 22:31 Sepsis Event Evaluation Sepsis Stage: Sepsis Possible Source: Pulmonary Height, Weight, BMI Height: 5'5" Weight: 175lbs. oz. 79.563263cd; BMI Method:Stated Focused Exam Sepsis Stage: Sepsis Possible Source: Pulmonary Lactate Level 05/14/23 20:05: Lactic Acid Level 2.53*H Time of Focused Exam: 02:00 Lactic Acid Level Laboratory Tests Test 05/14/23 20:05 Lactic Acid Level 2.53 MMOL/L (0.50-2.00) *H Exam Exam Patient acknowledged, consented, and participated in this virtual visit which was conducted using real time audio/video Vital Signs Date Time Temp Pulse Resp B/P (MAP) Pulse Ox O2 Delivery O2 Flow Rate FiO2 05/14/23 21:00 75 189/134 05/14/23 20:31 79 187/126 05/14/23 20:22 76 19 100 40 05/14/23 20:22 98 Mechanical Ventilator 05/14/23 20:00 36.9 59 97 Room Air Height & Weight Height: 5'5" Weight: 175lbs. oz. 79.919475un; BMI Method:Stated General Appearance: Mild Distress, Other (Unresponsive except to painful stimuli) HEENT: PERRL/EOMI, Other (Membranes dry) Neck: Supple; No Lymphadenopathy (L), No Lymphadenopathy (R) Respiratory: No Wheezing; Other (Minimal snoring respirations) Cardiovascular: Regular Rate, Rhythm, No Murmur Extremity: Non Tender, No Pedal Edema, Other (Arms contracted and legs tense) Neurologic/Psychiatric: Other (Unresponsive and moans to painful stimuli) Results Lab Laboratory Tests 05/14/23 20:05 Assessment/Plan Assessment/Plan new admission cc unresponsive hpi I am in [place] and remotely monitoring the patient. HPI and other pertinent details taken from ER notes. Patinet found on floor in apt per EMS. Neighbors called EMS. BP in 90s, bg 107, sats 90s when found. Patient had similar preesntation 1 month prior with ams. patient intubated in ed. possible aspiration, elevated la and wbc. unasyn given for abx covg. Of note, patient takes multiple psychiatric medications. pmhx mulitple psychiatric meds, dyslipidemia asthma, copd, pneumonia, bryson, orthostatic hypotension, gerd, robinson, anxiety, depression, hld allergy nkda ros as above social +tobacco neg substance no etoh Temp 36.9 Pulse 59 Resp 19 B/P (MAP) 187/126 Pulse Ox 97 O2 Delivery Room Air FiO2 40 pe deffered wbc 21 la> 2 UDs + benzo, +tricyclics CT head nap 1. acute metabolic encephlopathy 2. r/o aspiration pneumonia, sepsis 3. hx of depression, anxiety on multiple medications unable to complete video, not loading continue abx as ordered cultures pending full vent support for now pain managment sedation vent orders daily weening per protocol orders per PCP furhter orders will be added as nurse requests ct 10m Critical Care: Critically Ill Patient AYE [place] DO May 14, 2023 22:32
[2023-05-14 22:45] VITALS: BP 150/87
[2023-05-14] MEDS ORDERED: LACTATED RINGERS 1,000 ML 1,000 ML IV ONE (22:58)
[2023-05-14] MEDS ORDERED: NS IV 500 ML 500 ML IV PRN (23:00)
[2023-05-14] MEDS: LACTATED RINGERS 1,000 ML 1,000 ML IV SCH (23:03)
[2023-05-14] MEDS: fentaNYL DRIP PRE-MIX 250 ML IV SCH (23:15)
[2023-05-14] MEDS: ENOXAPARIN 30 MG/0.3 ML SYRINGE SC SCH (23:22)
[2023-05-15 02:56] VITALS: BP 112/71
[2023-05-15 03:39] LABS: ABG BASE EXCESS -1.9 MMOL/L (-2.5-2.5); ABG OXYGEN SATURATION 97 % (94-100); ABG PCO2 35 MMHG (35-45); ABG PH 7.42 (7.37-7.43); ABG PO2 86 MMHG (79-93)
[2023-05-15 03:40] LABS: ALLENS TEST YES-POS; INSPIRED O2 40%; PATIENT TEMP 36.9; VENTILATOR YES
[2023-05-15 03:43] LABS: BASOPHILS % (AUTO) 0 % (0-10); EOSINOPHILS # (AUTO) 0.1 10^3/uL (0.0-0.3); EOSINOPHILS % (AUTO) 1 % (0-10); HEMATOCRIT 30 % (35-52); HEMOGLOBIN 10.2 g/dL (11.5-16.0); LYMPHOCYTES # (AUTO) 2.8 10^3/uL (1.0-4.0); LYMPHOCYTES % (AUTO) 20 % (12-44); MEAN CORPUSCULAR HEMOGLOBIN 30 pg (25-34); MEAN CORPUSCULAR HGB CONC 34 g/dL (32-36); MEAN CORPUSCULAR VOLUME 91 fL (80-99); MEAN PLATELET VOLUME 9.6 fL (9.0-12.2); MONOCYTES # (AUTO) 0.6 10^3/uL (0.0-1.0); MONOCYTES % (AUTO) 4 % (0-12); NEUTROPHILS # (AUTO) 10.1 10^3/uL (1.8-7.8); NEUTROPHILS % (AUTO) 74 % (42-75); PLATELET COUNT 297 10^3/uL (130-400); WHITE BLOOD COUNT 13.7 10^3/uL (4.3-11.0)
[2023-05-15 03:59] LABS: ALBUMIN 2.9 GM/DL (3.2-4.5)
[2023-05-15 04:00] LABS: POTASSIUM 3.7 MMOL/L (3.6-5.0)
[2023-05-15 04:01] LABS: CALCIUM 8.1 MG/DL (8.5-10.1)
[2023-05-15 04:02] LABS: TOTAL PROTEIN 5.7 GM/DL (6.4-8.2)
[2023-05-15 04:04] LABS: BILIRUBIN,TOTAL 0.3 MG/DL (0.1-1.0)
[2023-05-15 04:06] LABS: CREATININE SERUM 2.35 MG/DL (0.60-1.30)
[2023-05-15] MEDS: POTASSIUM CHLORIDE 20 MEQ TABLET PO SCH (06:00)
[2023-05-15] MEDS: POTASSIUM CL 10MEQ/50ML IVPB 50 ML IV SCH (06:00)
[2023-05-15] MEDS: MAGNESIUM 1 GM/100 ML IVPB 100 ML IV SCH (06:00)
[2023-05-15] MEDS: LACTATED RINGERS 1,000 ML 1,000 ML IV SCH ×3 (06:45→16:58)
[2023-05-15 07:00] VITALS: BP 111/65
--- NOTE | 2023-05-15 07:50 | Diagnostic Imaging Report ---
INDICATION: Altered mental status, intubated TECHNIQUE: Single view chest 4:25 AM CORRELATION STUDY: 05/14/2023 FINDINGS: Endotracheal tube, gastric tube and right IJ central line all remain in place. Given patient position, heart size and mediastinum are mildly prominent but stable. Mild prominent interstitial markings appearing slightly more prominent from prior may be reflective of very mild edema. No definitive infiltrate. IMPRESSION: 1. Generally stable appearance about the support lines and tubes. Question early interstitial edema. Dictated by: Dictated on workstation # [id number]
--- NOTE | 2023-05-15 09:03 | Tele-ICU Progress Note ---
Subjective Date Seen by a Provider: May 15, 2023 Time Seen by a Provider: 09:02 Subjective/Events-last exam (Tele-ICU Physician , Progress Note ) Service provided via interactive audio and video telecommunications E-CARE s te to a patient admitted to ICU bed in [facility]. Patient is seen today due to persistent need of ICU care Available chart/ vitals / labs / Images reviewed Video assessment done using teleICU camera, rest of exam as per RN She is a 52-year-old female who is moderately obese has a history of some blocked mentally challenged, orthostatic hypotension, recurrent syncopal episodes found on the floor with a markedly decreased due to mental status and she was brought to the emergency room where she is intubated for airway protection. She is also found to have acute kidney injury, mild lactic acidosis. There is a possibility of urinary tract infection as well. Sepsis is suspected and started on IV antibiotics. She has been on multiple psych medications as well as pain medications including Hiram and gabapentin. Impression number 1. Acute hypoxic respiratory failure requiring mechanical ventilation 2. Acute kidney injury probably due to sepsis and dehydration 3. Urinary tract infection and possibly pneumonia 4. Moderate obesity 5. History of orthostatic hypotension and frequent syncopal episodes. She has been on fludrocortisone acetate. Recommendations 1. Continue mechanical ventilatory support 2. Hydrate patient 3. IV antibiotics per primary care physician. 4. We will check thyroid profile and a.m. cortisol level. 5. DVT prophylaxis and ulcer prophylaxis. 6. Continue monitor BUN and creatinine. 7. We will check CPK. Coordination of care with primary care physician and bedside consultants. I am remotely monitoring this patient from Tele icu station in [place]. I am unable to do the bedside exam, and history/physical and pertinent information is taken from other notes in the computer and bedside staff. Certain portions of this document may have been dictated utilizing voice recognition technology such as [employer]. Inherent to this technology, typographical and grammatical errors may exist. As much as I am diligent to identify and correct to these mistakes, some errors may remain in the document. Critical care time devoted to this patient today is approximately is- 35 minutes- Sepsis Event Evaluation Height, Weight, BMI Height: 5'5" Weight: 175lbs. oz. 79.368244ek; 33.85 BMI Method:Stated Focused Exam Lactate Level 05/14/23 20:05: Lactic Acid Level 2.53*H 05/14/23 23:22: Lactic Acid Level 1.36 05/15/23 03:28: Lactic Acid Level 1.60 Time of Focused Exam: 02:00 Exam Exam Patient acknowledged, consented, and participated in this virtual visit which was conducted using real time audio/video Vital Signs Date Time Temp Pulse Resp B/P (MAP) Pulse Ox O2 Delivery O2 Flow Rate FiO2 05/15/23 08:00 96 Mechanical Ventilator 35.00 05/15/23 06:30 37.3 76 18 106/58 (82) 96 Mechanical Ventilator 40.00 05/15/23 06:15 37.2 75 18 109/67 (83) 96 Mechanical Ventilator 40.00 05/15/23 06:00 37.3 77 18 110/61 (86) 96 Mechanical Ventilator 40.00 05/15/23 05:45 37.2 76 18 115/71 (88) 96 Mechanical Ventilator 40.00 05/15/23 05:30 37.2 76 18 113/65 (83) 96 Mechanical Ventilator 40.00 05/15/23 05:15 37.2 76 18 121/74 (88) 96 Mechanical Ventilator 40.00 05/15/23 05:00 37.1 75 18 120/65 (84) 96 Mechanical Ventilator 40.00 05/15/23 04:45 37.1 75 18 120/77 (98) 96 Mechanical Ventilator 40.00 05/15/23 04:38 74 104/55 05/15/23 04:30 37.1 75 18 98/57 (73) 96 Mechanical Ventilator 40.00 05/15/23 04:15 37.1 76 18 104/55 (75) 97 Mechanical Ventilator 40.00 05/15/23 04:00 37 75 18 104/64 (80) 97 Mechanical Ventilator 40.00 05/15/23 04:00 99 Mechanical Ventilator 40 05/15/23 04:00 74 104/55 05/15/23 03:45 37 75 18 104/53 (73) 96 Mechanical Ventilator 40.00 05/15/23 03:30 36.9 73 18 108/58 (71) 96 Mechanical Ventilator 40.00 05/15/23 03:15 74 104/55 05/15/23 03:15 36.9 74 20 106/69 (88) 96 Mechanical Ventilator 40.00 05/15/23 03:00 36.8 73 20 112/59 (87) 96 Mechanical Ventilator 40.00 05/15/23 02:56 72 18 96 40 05/15/23 02:45 36.7 74 20 129/76 (95) 97 Mechanical Ventilator 40.00 05/15/23 02:30 36.7 73 20 112/71 (89) 96 Mechanical Ventilator 40.00 05/15/23 02:15 36.6 73 20 132/73 (95) 96 Mechanical Ventilator 40.00 05/15/23 02:00 73 122/78 05/15/23 02:00 36.6 72 20 122/78 (96) 96 Mechanical Ventilator 40.00 05/15/23 01:45 36.7 71 20 122/72 (97) 97 Mechanical Ventilator 40.00 05/15/23 01:30 36.6 71 20 123/68 (94) 97 Mechanical Ventilator 40.00 05/15/23 01:15 36.6 70 20 129/78 (98) 98 Mechanical Ventilator 40.00 05/15/23 01:00 70 05/15/23 01:00 36.6 70 20 131/75 (98) 98 Mechanical Ventilator 40.00 05/15/23 00:45 36.5 70 20 133/76 (99) 98 Mechanical Ventilator 40.00 05/15/23 00:33 36.2 67 20 164/96 (119) 100 Mechanical Ventilator 40.00 05/15/23 00:31 71 142/78 05/15/23 00:30 36.2 73 20 172/114 (132) 98 Mechanical Ventilator 40.00 05/15/23 00:30 67 164/96 05/15/23 00:15 35.8 63 20 142/78 (108) 99 Mechanical Ventilator 40.00 05/15/23 00:00 97 Mechanical Ventilator 40 05/15/23 00:00 35.7 63 20 155/87 (114) 99 Mechanical Ventilator 40.00 05/14/23 23:57 60 140/81 05/14/23 23:45 63 140/81 05/14/23 23:45 35.7 65 20 140/81 (110) 98 Mechanical Ventilator 40.00 05/14/23 23:30 36.0 65 20 147/88 (109) 99 Mechanical Ventilator 40.00 05/14/23 23:30 62 147/88 05/14/23 23:16 66 140/84 05/14/23 23:15 35.9 66 20 140/84 (109) 98 Mechanical Ventilator 40.00 05/14/23 23:15 66 140/80 05/14/23 23:00 35.9 68 20 140/80 (109) 98 Mechanical Ventilator 40.00 05/14/23 23:00 69 140/80 05/14/23 22:45 35.5 69 20 150/87 (110) 97 Mechanical Ventilator 40.00 05/14/23 22:45 70 150/87 05/14/23 22:45 35.5 69 15 150/87 (108) 97 Mechanical Ventilator 40.00 05/14/23 22:37 76 05/14/23 22:31 75 20 146/92 (114) 96 Mechanical Ventilator 40.00 05/14/23 22:30 96 Mechanical Ventilator 40 05/14/23 22:30 76 20 100 Mechanical Ventilator 40.00 05/14/23 22:30 35.1 15 146/92 (110) 100 Mechanical Ventilator 40.00 05/14/23 22:27 76 20 176/99 (127) Mechanical Ventilator 40.00 05/14/23 22:15 176/99 (124) 05/14/23 22:15 70 19 146/90 96 Mechanical Ventilator 05/14/23 21:00 75 189/134 05/14/23 20:31 79 187/126 05/14/23 20:22 76 19 100 40 05/14/23 20:22 98 Mechanical Ventilator 05/14/23 20:00 36.9 59 97 Room Air I & O 05/15/23 07:00 Intake Total 1350 ml Output Total 300 ml Balance 1050 ml Height & Weight Height: 5'5" Weight: 175lbs. oz. 79.682500ix; 33.85 BMI Method:Stated General Appearance: Mild Distress, Other (Unresponsive except to painful stimuli) HEENT: PERRL/EOMI, Other (Membranes dry) Neck: Supple; No Lymphadenopathy (L), No Lymphadenopathy (R) Respiratory: No Wheezing; Other (Minimal snoring respirations) Cardiovascular: Regular Rate, Rhythm, No Murmur Extremity: Non Tender, No Pedal Edema, Other (Arms contracted and legs tense) Neurologic/Psychiatric: Other (Unresponsive and moans to painful stimuli) Results Lab Laboratory Tests 05/14/23 20:05 05/15/23 03:28 Assessment/Plan Assessment/Plan as above Critical Care: Ventilator Management Time spent with patient (mins): 35 PK RIOS MD May 15, 2023 09:03
[2023-05-15] MEDS ORDERED: fentaNYL INJECTION 100 MCG/2 ML VIAL IV ONE (09:04)
[2023-05-15] MEDS ORDERED: SUCCINYLCHOLINE INJ 20 MG/1 ML 10 ML VIAL INJ ONE (09:04)
[2023-05-15] MEDS ORDERED: MIDAZOLAM INJ 5 MG/5 ML VIAL IJ ONE (09:04)
[2023-05-15] MEDS ORDERED: ETOMIDATE INJ SOLN 20 MG/10 ML VIAL IV ONE (09:04)
[2023-05-15] MEDS: AMPICILLIN/SULBACTAM INJECTION 1.5 GM in NS (IVPB) 100 ML 100 ML IV SCH ×2 (09:19→20:42)
[2023-05-15] MEDS: PANTOPRAZOLE INJECTION 40 MG VIAL IV SCH (09:31)
[2023-05-15 09:46] LABS: FREE T4 (FREE THYROXINE) 0.72 NG/DL (0.70-1.48)
[2023-05-15 10:15] VITALS: BP 141/80
--- NOTE | 2023-05-15 12:56 | History & Physical-Hospitalist ---
GT VOGT 05/15/23 1256: History of Present Illness HPI/Chief Complaint 05/15/2023: CC: AMS HPI: Brandy is a 52 year old female that presented to the ED on 05/14 after being found on the floor of her apartment. Her neighbors found her where she was unable to speak, but was moaning. She was unable to answer questions. Brandy was also found with tensed arms and legs. The EMS found her to be hypotensive with normal SpO2 and blood sugar. She was hospitalized for hypernatermia previously a few weeks ago. She received an IO to the left tibia due to poor venous access. In the ED she was intubated and a central line was placed. She showed poor respiration and ABG indicated respiratory acidosis. Furthermore, it was noted that she was dehydrated and was given an IV bolus. Her UA found bacteria and Unasyn was started. Due to condition, it is impossible to ask patients about concerns or issues. Patient appears comfortable and is sedated. Actions were v erbalized to patient, but unsure of cognition. CT of brain showed no intracranial processes. Patient receiving monitoring per ICU nurse and should remain in ICU. Unable to ask any questions to patient including ROS. Ventilator settings: 450 / 19 / 5 / 35% Source: RN notes reviewed, EMS notes reviewed, old records Exam Limitations: clinical condition, physical impairment Date Seen 05/15/23 Attending Physician [facility] PCP Admitting Physician: Corrie Sullivan DO Attending Physician: Corrie Sullivan DO Referring Physician Date of Admission May 14, 2023 at 21:58 Home Medications & Allergies Home Medications Reviewed patient Home Medication Reconciliation performed by pharmacy medication reconciliations bmw service technician and/or nursing. Patients Allergies have been reviewed. Allergies Allergies Coded Allergies No Known Drug Allergies ([id number]/15/14) Past Tynccnu-Yghrgl-Ukkwci Hx Patient Social History Tobacco Use?: Yes Smoking Status: Unknown if Ever Smoked Smokeless Tobacco Frequency: Unknown if Ever Used Use of E-Cig and/or Vaping dev: Unable to obtain Use of E-Cig and/or Vaping Be: Unknown if Ever Used Substance use?: Unable to obtain Alcohol Use?: Unable to obtain Pt feels they are or have been: Unable to obtain Immunizations Up To Date Date of Influenza Vaccine: Jun 28, 2021 First/Initial COVID19 Vaccinat: UNSURE OF DATE Second COVID19 Vaccination James: UNSURE OF DATE. 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 History: Tubal Ligation, Menopausal Kidney Infection, UTI-Chronic Gastroesophageal Reflux Chronic Back Pain, Fractures Hearing Impairment: Hard of Hearing, Bilateral Hearing Aide Anxiety, Depression PMHx: unable to obtain due to patient condition Family Medical History Information obtained from historical records due to patient's altered mental status Review of Systems Constitutional: no symptoms reported, see HPI EENTM: see HPI, no symptoms reported Respiratory: no symptoms reported, see HPI Cardiovascular: no symptoms reported, see HPI Gastrointestinal: no symptoms reported, see HPI Genitourinary: no symptoms reported, see HPI Musculoskeletal: no symptoms reported, see HPI Skin: no symptoms reported, see HPI Psychiatric/Neurological: No Symptoms Reported, See HPI Physical Exam Physical Exam Vital Signs Vital Signs - First Documented 05/14/23 05/14/23 05/14/23 05/14/23 20:00 20:22 20:31 22:27 Temp 36.9 Pulse 59 Resp 19 B/P (MAP) 187/126 Pulse Ox 97 O2 Delivery Room Air O2 Flow Rate 40.00 FiO2 40 Capillary Refill : Height, Weight, BMI Height: 5'5" Weight: 175lbs. oz. 79.790197hj; 33.85 BMI Method:Stated General Appearance: Mild Distress, Obese Eyes: Bilateral Eye Normal Inspection, Bilateral Eye EOMI HEENT: No Scleral Icterus (L), No Scleral Icterus (R) Neck: Supple; No JVD Respiratory: Lungs Clear, Normal Breath Sounds, No Accessory Muscle Use, Other (Ventilator ) Cardiovascular: Regular Rate, Rhythm, No Edema, No JVD, No Murmur, Normal Peripheral Pulses; No Diastolic Murmur, No Systolic Murmur Gastrointestinal: Normal Bowel Sounds, No Organomegaly, No Pulsatile Mass, Soft Rectal: Deferred Extremity: Normal Capillary Refill, Normal Inspection, No Pedal Edema; No Inflammation Neurologic/Psychiatric: Other (sedated ) Skin: Normal Color, Warm/Dry Lymphatic: No Adenopathy Results Results/Procedures Labs Laboratory Tests 05/14/23 20:05 05/15/23 03:28 Patient resulted labs reviewed. NOTE: AB.42 / 35 / 86 (improvement in resp acidosis prev) WBC trending down, improving with ABx HgB is down to 10.2, with all blood products reducing could be associated with fluid replacement from dehydrated state. No signs of blood loss on PE. CK elevated at 349, potentially due to muscle dysfunction- unsure of etiology. P otentially related to possible seizure, rhabdo, or poor nutrition Cr improved Imaging: Reviewed Imaging Films, Reviewed Imaging Report Assessment/Plan Admission Diagnosis Sepsis Admission Status: Inpatient Order (span 2 midnights) Reason for Inpatient Admission: Intubated Assessment and Plan 05/15/2023: Assessment/Plan: -Acute on Chronic Hypoxic Respiratory Failure * Intubation, continue to monitor ABG * Continue vent settings -Sepsis * Hydration, Monitoring of labs, Unasyn -AMANDEEP * monitor BUN and Cr, slow fluid replacement -UTI * Abx, await sensitivities -Hypotension * Fluid replacement -Elevated CK * monitor CMP Diagnosis/Problems Diagnosis/Problems (1) Acute on chronic hypoxic respiratory failure Status: Acute (2) Sepsis Status: Acute Qualifiers: Sepsis type: sepsis due to unspecified organism Sepsis acute organ dysfunc tion status: with acute organ dysfunction Severe sepsis acute organ dysfuncti on type: acute renal failure Acute renal failure type: unspecified Severe sepsis shock status: without septic shock Qualified Codes: A41.9 - Sepsis, unspecified organism; R65.20 - Severe sepsis without septic shock; N17.9 - Acute kidney failure, unspecified (3) UTI (urinary tract infection) Status: Acute Qualifiers: Urinary tract infection type: acute cystitis Hematuria presence: without hematuria Qualified Codes: N30.00 - Acute cystitis without hematuria (4) AMANDEEP (acute kidney injury) Status: Acute (5) Dehydration Status: Acute (6) Hx of major depression CORRIE SULLIVAN DO 05/15/232037: History of Present Illness HPI/Chief Complaint Chief complaint: Altered mental status intubated to protect airway HPI: 52-year-old female who presented to the ER by EMS due to hypotension and altered mental status. Patient was intubated due to poor airway protection. I have reviewed the meds and labs and patient remains on antibiotics. Source: RN notes reviewed, EMS notes reviewed Exam Limitations: clinical condition Time Seen by a Provider: 10:00 Review of Systems Constitutional: see HPI Physical Exam Physical Exam General Appearance: No Apparent Distress, Other (Intubated) Respiratory: Lungs Clear, Normal Breath Sounds Cardiovascular: Regular Rate, Rhythm Assessment/Plan Admission Diagnosis Assessment: Altered mental status Sepsis Respiratory compromise requiring intubation Plan: IV antibiotics Supportive care Admission Status: Inpatient Order (span 2 midnights) Reason for Inpatient Admission: intubated with altered mental status Supervisory-Addendum Brief Verification & Attestation Participated in pt care: history, MDM, physical Personally performed: exam, history, MDM, supervision of care Care discussed with: Medical Student Procedures: n/a Results interpretation: Verified all documentation Verification and Attestation of Medical Student E/M Service A medical student performed and documented this service in my presence. I reviewed and verified all information documented by the medical student and made modifications to such information, when appropriate. I personally performed the physical exam and medical decision making. Corrie Sullivan May 15, 2023,20:38 GT VOGT May 15, 2023 12:56 CORRIE SULLIVAN DO May 15, 2023 20:38
[2023-05-15 14:15] VITALS: BP 108/61
[2023-05-15 18:32] VITALS: BP 114/70
[2023-05-15] MEDS: ENOXAPARIN 30 MG/0.3 ML SYRINGE SC SCH (20:41)
[2023-05-15 21:28] VITALS: BP 118/70
[2023-05-15] MEDS: fentaNYL DRIP PRE-MIX 250 ML IV SCH (22:16)
[2023-05-16] MEDS: LACTATED RINGERS 1,000 ML 1,000 ML IV SCH ×4 (00:51→21:31)
[2023-05-16 03:15] VITALS: BP 137/75
[2023-05-16 03:41] LABS: ABG BASE EXCESS -0.4 MMOL/L (-2.5-2.5); ABG OXYGEN SATURATION 95 % (94-100); ABG PCO2 35 MMHG (35-45); ABG PH 7.44 (7.37-7.43); ABG PO2 72 MMHG (79-93); ABG TCO2 24.3 MMOL/L (21.0-31.0)
[2023-05-16 03:42] LABS: ALLENS TEST YES-POS; INSPIRED O2 30%; VENTILATOR YES
[2023-05-16 03:43] LABS: PATIENT TEMP 37.6
[2023-05-16 04:53] LABS: ALBUMIN 2.6 GM/DL (3.2-4.5); BASOPHILS % (AUTO) 0 % (0-10); EOSINOPHILS # (AUTO) 0.3 10^3/uL (0.0-0.3); EOSINOPHILS % (AUTO) 4 % (0-10); HEMATOCRIT 27 % (35-52); HEMOGLOBIN 8.8 g/dL (11.5-16.0); LYMPHOCYTES # (AUTO) 1.9 10^3/uL (1.0-4.0); LYMPHOCYTES % (AUTO) 27 % (12-44); MEAN CORPUSCULAR HEMOGLOBIN 30 pg (25-34); MEAN CORPUSCULAR HGB CONC 32 g/dL (32-36); MEAN CORPUSCULAR VOLUME 93 fL (80-99); MEAN PLATELET VOLUME 9.8 fL (9.0-12.2); MONOCYTES # (AUTO) 0.3 10^3/uL (0.0-1.0); MONOCYTES % (AUTO) 5 % (0-12); NEUTROPHILS # (AUTO) 4.4 10^3/uL (1.8-7.8); NEUTROPHILS % (AUTO) 63 % (42-75); PLATELET COUNT 216 10^3/uL (130-400); WHITE BLOOD COUNT 6.9 10^3/uL (4.3-11.0)
[2023-05-16 04:54] LABS: POTASSIUM 3.6 MMOL/L (3.6-5.0)
[2023-05-16 04:55] LABS: CALCIUM 7.9 MG/DL (8.5-10.1)
[2023-05-16 04:56] LABS: TOTAL PROTEIN 5.2 GM/DL (6.4-8.2)
[2023-05-16 04:58] LABS: BILIRUBIN,TOTAL 0.3 MG/DL (0.1-1.0)
[2023-05-16 05:00] LABS: CREATININE SERUM 1.66 MG/DL (0.60-1.30)
[2023-05-16 05:03] LABS: MAGNESIUM 1.9 MG/DL (1.6-2.4)
[2023-05-16] MEDS: POTASSIUM CHLORIDE 20 MEQ TABLET PO SCH (05:29)
[2023-05-16] MEDS: MAGNESIUM 1 GM/100 ML IVPB 100 ML IV SCH ×3 (05:29→07:06)
[2023-05-16] MEDS: POTASSIUM CL 10MEQ/50ML IVPB 50 ML IV SCH ×5 (05:29→10:01)
[2023-05-16 07:19] VITALS: BP 136/74
--- NOTE | 2023-05-16 08:06 | Diagnostic Imaging Report ---
EXAMINATION: Chest 1 view HISTORY: Intubated COMPARISON: 05/15/2022 FINDINGS: Endotracheal tube tip terminates 5 cm above the meaghan. Gastric tube is in the stomach. Right internal jugular central venous catheter tip terminates in the superior vena cava. There is mild edema and tiny pleural effusions. No pneumothorax. IMPRESSION: 1. Mild edema and tiny pleural effusions. Dictated by: Dictated on workstation # [id number]
[2023-05-16] MEDS: AMPICILLIN/SULBACTAM INJECTION 1.5 GM in NS (IVPB) 100 ML 100 ML IV SCH ×3 (08:51→19:54)
[2023-05-16] MEDS: PANTOPRAZOLE INJECTION 40 MG VIAL IV SCH (08:51)
--- NOTE | 2023-05-16 10:03 | Progress Note - Hospitalist ---
GT VOGT 05/16/23 1003: Subjective HPI/CC On Admission Date Seen by Provider: May 16, 2023 Time Seen by Provider: 09:55 Chief complaint: Altered mental status intubated to protect airway HPI: 52-year-old female who presented to the ER by EMS due to hypotension and altered mental status. Patient was intubated due to poor airway protection. I have reviewed the meds and labs and patient remains on antibiotics. Subjective/Events-last exam 05/16/2023: CC: AMS HPI: Brandy 52F, is still intubated. She is unable to respond to questions or express any concerns. There is no family at bedside to discuss concerns with or ask questions about relevant medical history. Vent Settings: / 19 / 5.00 / 30% Review of Systems General: Other (unable to verbalize ) HEENT: Other (unable to verbalize ) Pulmonary: Other (unable to verbalize ) Cardiovascular: Other (unable to verbalize ) Gastrointestinal: Other (unable to verbalize ) Genitourinary: Other (unable to verbalize ) Neurological: Other (unable to verbalize ) Focused Exam Lactate Level 05/14/23 23:22: Lactic Acid Level 1.36 05/15/23 03:28: Lactic Acid Level 1.60 05/15/23 22:54: Lactic Acid Level 1.28 Time of Focused Exam: 02:00 Objective Exam Vital Signs Vital Signs Date Time Temp Pulse Resp B/P (MAP) Pulse Ox O2 Delivery O2 Flow Rate FiO2 05/16/23 11:00 37.6 71 20 148/76 (100) 95 Mechanical Ventilator 30.00 05/16/23 07:19 30 Capillary Refill : General Appearance: Mild Distress, Obese HEENT: Moist Mucous Membranes; No Pale Conjunctivae (L), No Pale Conjunctivae (R) Neck: Normal Inspection, Non Tender, Supple; No Carotid Bruit, No JVD Respiratory: Lungs Clear, No Accessory Muscle Use, Other (Ventilator ) Cardiovascular: Regular Rate, Rhythm, No Edema, No JVD, No Murmur, Normal Peripheral Pulses Gastrointestinal: Normal Bowel Sounds, No Pulsatile Mass, Non Tender, Soft Rectal: Deferred Extremity: Normal Capillary Refill, No Pedal Edema Neurologic/Psychiatric: Other (sedated via propofol ) Skin: Normal Color, Cool Lymphatic: No Adenopathy Results/Procedures Lab Laboratory Tests 05/16/23 04:35 10/5/23 11:30 Patient resulted labs reviewed. Imaging: Reviewed Imaging Films, Reviewed Imaging Report Assessment/Plan Assessment and Plan Assess & Plan/Chief Complaint 05/16/2023: Assessment/Plan: -Altered Mental Status * pt sedated with propofol, unable to reassess -Sepsis * start Vancomycin * Unasyn, monitor labs, fluids * Blood culture was coag neg staph, awaiting sensitivities -Airway Protection with Intubation * Monitor ventilation settings, FiO2 decreased from 35 to 30, potentially lessen more * RT management -Anemia * fluid replacement occuring, likely dilution based given decrease in all cell lines * monitor for signs of occult bleed -Hx of Depression/Anxiety -UTI * culture negative, continue with indwelling catheter care to prevent UTI -AMANDEEP * BUN and Cr normalized 05/16, monitor BUN and Cr 05/15/2023: Assessment/Plan: -Acute on Chronic Hypoxic Respiratory Failure * Intubation, continue to monitor ABG * Continue vent settings -Sepsis * Hydration, Monitoring of labs, Unasyn -AMANDEEP * monitor BUN and Cr, slow fluid replacement -UTI * Abx, await sensitivities -Hypotension * Fluid replacement -Elevated CK * monitor CMP Diagnosis/Problems Diagnosis/Problems (1) Sepsis Status: Acute Qualifiers: Qualified Codes: A41.9 - Sepsis, unspecified organism; R65.20 - Severe sepsis without septic shock; N17.9 - Acute kidney failure, unspecified (2) AMANDEEP (acute kidney injury) Status: Acute (3) AMS (altered mental status) Status: Acute Qualifiers: Qualified Codes: R41.82 - Altered mental status, unspecified (4) Dehydration Status: Acute (5) Hx of major depression (6) UTI (urinary tract infection) Status: Acute Qualifiers: Qualified Codes: N30.00 - Acute cystitis without hematuria CORRIE FRENCH DO 05/16/232038: Subjective Subjective/Events-last exam Still on vent BCx + so added Vanc Will continue to monitor Review of Systems General: Fatigue, Malaise Objective Exam General Appearance: No Apparent Distress, WD/WN, Chronically ill Respiratory: Lungs Clear, Normal Breath Sounds Cardiovascular: Regular Rate, Rhythm Assessment/Plan Assessment and Plan Assess & Plan/Chief Complaint Vent management Prognosis poor Supervisory-Addendum Brief Verification & Attestation Participated in pt care: history, MDM, physical Personally performed: exam, history, MDM, supervision of care Care discussed with: Medical Student Procedures: n/a Results interpretation: Verified all documentation Verification and Attestation of Medical Student E/M Service A medical student performed and documented this service in my presence. I r eviewed and verified all information documented by the medical student and made modifications to such information, when appropriate. I personally performed the physical exam and medical decision making. Corrie French, May 16, 2023,20:38 GT VOGT May 16, 2023 10:03 CORRIE FRENCH DO May 16, 2023 20:39
[2023-05-16] MEDS ORDERED: VANCOMYCIN INJECTION 0.1 MG in NS (IVPB) 250 ML 250 ML IV SCH (11:00)
--- NOTE | 2023-05-16 11:02 | Diagnostic Imaging Report ---
PROCEDURE: CT abdomen and pelvis without contrast. TECHNIQUE: Multiple contiguous axial images were obtained through the abdomen and pelvis without the use of intravenous contrast. Auto Exposure Controls were utilized during the CT exam to meet ALARA standards for radiation dose reduction. INDICATION: Altered mental status and obstruction. COMPARISON: Correlation is made with prior CT of 12/23/2021. FINDINGS: Lung bases demonstrates areas of parenchymal consolidation in the bilateral lower lobes, greatest on the right with air bronchograms. The liver is unremarkable. Gallbladder is surgically absent. There is no biliary ductal dilatation. The pancreas and spleen are unremarkable. No adrenal mass is identified. Kidneys are unremarkable. No calculi are seen. There is no hydronephrosis. Aorta is nonaneurysmal. There is a small fat-containing umbilical hernia. Bowel loops are normal in caliber. Appendix is unremarkable. There is no evidence of obstruction. No free fluid or fluid collection is seen. The uterus is unremarkable. The bladder is decompressed by Arias catheter. Bony structures are unremarkable. IMPRESSION: 1. Bibasilar consolidation, suggestive of pneumonia or atelectasis. 2. Small fat-containing umbilical hernia. 3. No acute feature in the abdomen or pelvis is identified. There is no evidence of bowel obstruction. Dictated by: Dictated on workstation # [id number]
[2023-05-16] MEDS ORDERED: VANCOMYCIN 1,750 MG/NS 500 ML IVPB IV ONE ×2 (11:30)
[2023-05-16 11:41] LABS: HEMATOCRIT 28 % (35-52); HEMOGLOBIN 9.2 g/dL (11.5-16.0); MEAN CORPUSCULAR HEMOGLOBIN 31 pg (25-34); MEAN CORPUSCULAR HGB CONC 33 g/dL (32-36); MEAN CORPUSCULAR VOLUME 92 fL (80-99); MEAN PLATELET VOLUME 9.7 fL (9.0-12.2); PLATELET COUNT 224 10^3/uL (130-400)
--- NOTE | 2023-05-16 12:59 | Tele-ICU Progress Note ---
Subjective Date Seen by a Provider: May 16, 2023 Time Seen by a Provider: 12:58 Subjective/Events-last exam Tele-ICU Physician , Progress Note ) Service provided via interactive audio and video telecommunications E-CARE sys tem to a patient admitted to ICU bed in [facility]. Patient is seen today due to persistent need of ICU care Available chart/ vitals / labs / Images reviewed Video assessment done using teleICU camera, rest of exam as per RN Subj: Pt currently on propofol and fentanyl, noted to have increased secretions per RT at bedside. Failed SBT 2/2 increased work of breathing A/P: 52 y/o F with morbid obesity, orthostatic hypotension, recurrent syncope who presented to ED with AMS and was intubated for airway protection. Hospital course c/b AMANDEEP, lactic acidosis, and UTI. Remains intubated and on sedation Acute hypoxic/hypercapnic respiratory failure: Improving -On minimal vent settings. -NOted to have increased secretions however cxr unremkarabkle -Will send off trachial culture, no antibiotics at this time -Wean propofol as tolerated. Acute kidney injury -Likely 2/2 sepsis and dehydration -Improving -Cont IVF Anemia: Noted to have 4 gm drop over past 2 days and dark bilious output from NG -Rpeat Hgb stable -Will obtain CT a/p to r/o obstruction Lines : periph , (Central Line Necessity Reviewed) Arias: Nutrition: npo VTE Prophylaxis: kathy 1`30 bid Stress Ulcer Prophylaxis: PPI Plans in collaboration with bedside consultants and IM MDs. Discussed with RN to reach out if any questions or concerns A total of 25 minutes of critical care time was devoted to this patient today, required to treat and/or prevent further deterioration of critical care condit ion ( as above ) I am remotely monitoring this patient from another state. I am unable to do the bedside exam, and history/physical and pertinent information is taken from other notes in the computer and bedside staff Sepsis Event Evaluation Height, Weight, BMI Height: 5'5" Weight: 175lbs. oz. 79.251899gt; 33.85 BMI Method:Stated Focused Exam Lactate Level 05/14/23 23:22: Lactic Acid Level 1.36 05/15/23 03:28: Lactic Acid Level 1.60 05/15/23 22:54: Lactic Acid Level 1.28 Time of Focused Exam: 02:00 Exam Exam Patient acknowledged, consented, and participated in this virtual visit which was conducted using real time audio/video Vital Signs Date Time Temp Pulse Resp B/P (MAP) Pulse Ox O2 Delivery O2 Flow Rate FiO2 05/16/23 12:06 94 Mechanical Ventilator 30.00 05/16/23 11:00 37.6 71 20 148/76 (100) 95 Mechanical Ventilator 30.00 05/16/23 10:01 72 05/16/23 10:00 37.6 70 19 129/65 (86) 94 Mechanical Ventilator 30.00 05/16/23 09:00 37.6 71 18 133/65 (87) 94 Mechanical Ventilator 30.00 05/16/23 08:00 37.6 76 18 138/73 (94) 94 Mechanical Ventilator 30.00 05/16/23 08:00 94 Mechanical Ventilator 30.00 05/16/23 07:29 36.7 05/16/23 07:19 73 19 94 30 05/16/23 07:00 37.6 66 18 120/62 (81) 93 Mechanical Ventilator 30.00 05/16/23 07:00 71 05/16/23 05:15 37.6 66 18 122/66 (91) 94 Mechanical Ventilator 30.00 05/16/23 05:00 37.6 73 18 142/73 (103) 94 Mechanical Ventilator 30.00 05/16/23 04:45 68 18 131/68 (95) 93 Mechanical Ventilator 30.00 05/16/23 04:30 37.6 72 18 133/69 (96) 93 Mechanical Ventilator 30.00 05/16/23 04:15 37.6 143/74 (100) 05/16/23 04:11 78 137/72 05/16/23 04:11 82 137/72 05/16/23 04:02 94 Mechanical Ventilator 30.00 05/16/23 04:00 37.6 74 19 137/72 (97) 93 Mechanical Ventilator 30.00 05/16/23 03:45 37.6 131/66 (94) Mechanical Ventilator 30.00 05/16/23 03:30 37.6 76 18 140/70 (97) 94 Mechanical Ventilator 30.00 05/16/23 03:15 37.6 75 18 137/75 (99) 94 Mechanical Ventilator 30.00 05/16/23 03:15 77 19 94 30 05/16/23 03:00 37.8 80 18 131/67 (92) 94 Mechanical Ventilator 30.00 05/16/23 02:48 90 151/89 05/16/23 02:45 37.9 95 151/88 (118) 93 Mechanical Ventilator 30.00 05/16/23 02:30 37.7 19 130/80 (104) 94 Mechanical Ventilator 30.00 05/16/23 02:15 37.8 128/69 (93) 05/16/23 02:00 37.8 77 18 132/81 (102) 94 Mechanical Ventilator 30.00 05/16/23 01:45 37.8 130/80 (102) 05/16/23 01:30 37.8 73 18 122/68 (92) 94 Mechanical Ventilator 30.00 05/16/23 01:15 37.8 74 18 126/72 (95) 93 Mechanical Ventilator 30.00 05/16/23 01:00 76 05/16/23 01:00 37.8 75 26 123/71 (94) 94 Mechanical Ventilator 30.00 05/16/23 00:45 37.8 77 18 133/80 (101) 93 Mechanical Ventilator 30.00 05/16/23 00:30 37.8 127/73 (100) 05/16/23 00:15 37.8 77 43 137/83 (105) 94 Mechanical Ventilator 30.00 05/16/23 00:02 79 140/89 05/16/23 00:00 37.8 140/88 (112) 05/15/23 23:59 94 Mechanical Ventilator 30.00 05/15/23 23:45 37.8 74 18 132/80 (102) 94 Mechanical Ventilator 30.00 05/15/23 23:30 37.8 72 19 128/76 (100) 94 Mechanical Ventilator 30.00 05/15/23 23:14 73 122/70 05/15/23 23:00 37.7 74 18 122/70 (90) 93 Mechanical Ventilator 30.00 05/15/23 22:45 37.7 40 125/71 (95) 94 Mechanical Ventilator 30.00 05/15/23 22:30 37.7 76 18 130/85 (96) 94 Mechanical Ventilator 30.00 05/15/23 22:16 71 109/70 05/15/23 22:15 37.7 71 18 109/70 (86) Mechanical Ventilator 30.00 05/15/23 22:00 37.7 72 19 109/70 (88) 93 Mechanical Ventilator 30.00 05/15/23 21:45 37.7 71 35 112/68 (88) Mechanical Ventilator 30.00 05/15/23 21:30 37.7 70 36 118/70 (93) 94 Mechanical Ventilator 30.00 05/15/23 21:28 72 19 94 30 05/15/23 21:15 37.7 23 120/72 (91) Mechanical Ventilator 30.00 05/15/23 21:00 37.7 71 18 112/68 (83) 94 Mechanical Ventilator 30.00 05/15/23 20:05 94 Mechanical Ventilator 30.00 05/15/23 20:00 37.5 71 18 118/74 (95) 93 Mechanical Ventilator 30.00 05/15/23 19:45 37.5 71 18 123/71 (93) 94 Mechanical Ventilator 30.00 05/15/23 19:32 35.7 05/15/23 19:00 80 05/15/23 18:32 72 18 96 30 05/15/23 18:00 68 18 118/76 (90) 95 Mechanical Ventilator 30.00 05/15/23 17:00 37.2 75 18 138/75 (106) 97 Mechanical Ventilator 30.00 05/15/23 16:00 96 Mechanical Ventilator 35.00 05/15/23 16:00 37.2 67 18 101/60 (78) 94 Mechanical Ventilator 30.00 05/15/23 15:39 37.2 05/15/23 15:00 37.2 69 19 100/56 (76) 94 Mechanical Ventilator 30.00 05/15/23 14:15 71 19 94 30 05/15/23 14:00 99 Mechanical Ventilator 40 05/15/23 14:00 37.2 72 18 115/66 (88) 95 Mechanical Ventilator 30.00 05/15/23 13:45 68 104/63 05/15/23 13:03 73 05/15/23 13:00 72 19 98/54 (69) 94 Mechanical Ventilator 30.00 I & O 05/16/23 07:00 Intake Total 2850 ml Output Total 1050 ml Balance 1800 ml Height & Weight Height: 5'5" Weight: 175lbs. oz. 79.174863bx; 33.85 BMI Method:Stated General Appearance: Mild Distress, Obese HEENT: Moist Mucous Membranes; No Pale Conjunctivae (L), No Pale Conjunctivae (R) Neck: Normal Inspection, Non Tender, Supple; No Carotid Bruit, No JVD Respiratory: Lungs Clear, No Accessory Muscle Use, Other (Ventilator ) Cardiovascular: Regular Rate, Rhythm, No Edema, No JVD, No Murmur, Normal Peripheral Pulses Extremity: Normal Capillary Refill, No Pedal Edema Neurologic/Psychiatric: Other (sedated via propofol ) Skin: Normal Color, Cool Lymphatic: No Adenopathy Results Lab Laboratory Tests 05/14/23 20:05 05/15/23 03:28 05/16/23 04:35 05/16/23 11:30 Assessment/Plan Assessment/Plan . DIOMEDES CASTELAN MD May 16, 2023 12:59
[2023-05-16 15:07] VITALS: BP 125/74
[2023-05-16 19:01] VITALS: BP 166/97
[2023-05-16] MEDS: ENOXAPARIN 40 MG/0.4 ML SYRINGE SC SCH (20:46)
[2023-05-16 22:09] VITALS: BP 159/97
[2023-05-17] MEDS: fentaNYL DRIP PRE-MIX 250 ML IV SCH ×2 (00:53→20:34)
[2023-05-17] MEDS: AMPICILLIN/SULBACTAM INJECTION 1.5 GM in NS (IVPB) 100 ML 100 ML IV SCH ×4 (01:53→19:36)
[2023-05-17 02:49] VITALS: BP 158/86
[2023-05-17] MEDS: LACTATED RINGERS 1,000 ML 1,000 ML IV SCH ×2 (05:15→14:57)
[2023-05-17 05:21] LABS: BASOPHILS % (AUTO) 0 % (0-10); EOSINOPHILS # (AUTO) 0.3 10^3/uL (0.0-0.3); EOSINOPHILS % (AUTO) 5 % (0-10); HEMATOCRIT 28 % (35-52); HEMOGLOBIN 9.3 g/dL (11.5-16.0); LYMPHOCYTES # (AUTO) 1.9 10^3/uL (1.0-4.0); LYMPHOCYTES % (AUTO) 26 % (12-44); MEAN CORPUSCULAR HEMOGLOBIN 30 pg (25-34); MEAN CORPUSCULAR HGB CONC 33 g/dL (32-36); MEAN CORPUSCULAR VOLUME 92 fL (80-99); MEAN PLATELET VOLUME 9.8 fL (9.0-12.2); MONOCYTES # (AUTO) 0.3 10^3/uL (0.0-1.0); MONOCYTES % (AUTO) 5 % (0-12); NEUTROPHILS # (AUTO) 4.7 10^3/uL (1.8-7.8); NEUTROPHILS % (AUTO) 64 % (42-75); PLATELET COUNT 232 10^3/uL (130-400); WHITE BLOOD COUNT 7.4 10^3/uL (4.3-11.0)
[2023-05-17 05:34] LABS: ALBUMIN 2.6 GM/DL (3.2-4.5); POTASSIUM 3.7 MMOL/L (3.6-5.0)
[2023-05-17 05:36] LABS: TOTAL PROTEIN 5.3 GM/DL (6.4-8.2)
[2023-05-17 05:38] LABS: BILIRUBIN,TOTAL 0.4 MG/DL (0.1-1.0)
[2023-05-17 05:40] LABS: CREATININE SERUM 1.12 MG/DL (0.60-1.30); PHOSPHORUS 4.4 MG/DL (2.3-4.7)
[2023-05-17] MEDS: MAGNESIUM 1 GM/100 ML IVPB 100 ML IV SCH (05:55)
[2023-05-17] MEDS: POTASSIUM CHLORIDE 20 MEQ TABLET PO SCH (05:55)
[2023-05-17] MEDS: POTASSIUM CL 10MEQ/50ML IVPB 50 ML IV SCH ×3 (05:56→08:37)
[2023-05-17 06:00] LABS: SMEAR SCAN COMMENT YES
[2023-05-17 07:10] VITALS: BP 148/87
--- NOTE | 2023-05-17 08:32 | Diagnostic Imaging Report ---
EXAMINATION: Chest 1 view HISTORY: Intubated COMPARISON: 05/16/2023 FINDINGS: Endotracheal tube tip terminates 6 cm above the meaghan. Gastric tube is in the stomach. Right internal jugular central venous catheter tip terminates in the superior vena cava. There is mild pulmonary edema, unchanged. There are small pleural effusions. No pneumothorax. IMPRESSION: 1. Unchanged mild edema and small effusions. Dictated by: Dictated on workstation # [id number]
[2023-05-17] MEDS: PANTOPRAZOLE INJECTION 40 MG VIAL IV SCH ×2 (09:33→20:35)
[2023-05-17] MEDS: VANCOMYCIN 1500MG/300ML PREMIX IV SCH ×2 (09:58→20:34)
[2023-05-17] MEDS ORDERED: FUROSEMIDE INJECTION 40 MG/4 ML VIAL IVP NR (11:00)
[2023-05-17] MEDS ORDERED: DexMEDEtomidine 1,000mcg/250ml 250 ML IV SCH (11:00)
[2023-05-17 11:19] VITALS: BP 151/84
[2023-05-17] MEDS: DexMEDEtomidine 1,000mcg/250ml 250 ML IV SCH (11:40)
--- NOTE | 2023-05-17 11:51 | Tele-ICU Progress Note ---
Subjective Date Seen by a Provider: May 17, 2023 Time Seen by a Provider: 10:45 Subjective/Events-last exam (Tele-ICU Physician , Progress Note ) Service provided via interactive audio and video telecommunications E-CARE s te to a patient admitted to ICU bed in [facility]. Patient is seen today due to persistent need of ICU care Available chart/ vitals / labs / Images reviewed Video assessment done using teleICU camera, rest of exam as per RN She is a 52-year-old female who is moderately obese has a history of some blocked mentally challenged, orthostatic hypotension, recurrent syncopal episodes found on the floor with a markedly decreased due to mental status and she was brought to the emergency room where she is intubated for airway protection. She is also found to have acute kidney injury, mild lactic acidosis. There is a possibility of urinary tract infection as well. Sepsis is suspected and started on IV antibiotics. She has been on multiple psych medications as well as pain medications including [place] and gabapentin. 05/17/23 she is not ready for SBT. ngt draining reddish fluid but hb stable. RN reports that pt has generalised swelling. sputum groing MRSA Impression number 1. Acute hypoxic respiratory failure requiring mechanical ventilation not ready for SBT. 2. Acute kidney injury probably due to sepsis and dehydration now developping fluid overload. 3. Urinary tract infection and possibly pneumonia with mrsa 4. Moderate obesity 5. History of orthostatic hypotension and frequent syncopal episodes. She has been on fludrocortisone acetate. Recommendations 1. Continue mechanical ventilatory support 2. Decrease icf and give lasix X1 3. IV antibiotics per primary care physician. 4. We will check thyroid profile and a.m. cortisol level. 5. DVT prophylaxis and ulcer prophylaxis. 6. Continue monitor BUN and creatinine. 7. will add vancomycin 8. Surgical consultation for possible endoscopy Coordination of care with primary care physician and bedside consultants. I am remotely monitoring this patient from Tele icu station in [place]. I am unable to do the bedside exam, and history/physical and pertinent information is taken from other notes in the computer and bedside staff. Certain portions of this document may have been dictated utilizing voice recognition technology such as [employer]. Inherent to this technology, typ ographical and grammatical errors may exist. As much as I am diligent to identify and correct to these mistakes, some errors may remain in the document. Critical care time devoted to this patient today is approximately is- 40 minutes- Sepsis Event Evaluation Height, Weight, BMI Height: 5'5" Weight: 175lbs. oz. 79.868518we; 33.85 BMI Method:Stated Focused Exam Lactate Level 05/14/23 23:22: Lactic Acid Level 1.36 05/15/23 03:28: Lactic Acid Level 1.60 05/15/23 22:54: Lactic Acid Level 1.28 Time of Focused Exam: 02:00 Exam Exam Patient acknowledged, consented, and participated in this virtual visit which was conducted using real time audio/video Vital Signs Date Time Temp Pulse Resp B/P (MAP) Pulse Ox O2 Delivery O2 Flow Rate FiO2 05/17/23 11:41 64 153/86 05/17/23 11:40 64 153/86 05/17/23 11:19 69 19 96 30 05/17/23 11:00 64 148/80 (110) 98 Mechanical Ventilator 30.00 05/17/23 10:00 66 30 140/74 (103) 94 Mechanical Ventilator 30.00 05/17/23 09:00 68 23 153/84 (112) 94 Mechanical Ventilator 30.00 05/17/23 08:18 75 165/94 05/17/23 08:00 94 Mechanical Ventilator 30.00 05/17/23 08:00 79 163/92 (119) 95 Mechanical Ventilator 30.00 05/17/23 07:43 36.1 05/17/23 07:10 66 19 94 30 05/17/23 07:00 66 05/17/23 07:00 66 14 148/87 (110) 94 Mechanical Ventilator 30.00 05/17/23 06:00 69 18 160/88 (112) 95 Mechanical Ventilator 30.00 05/17/23 05:00 74 18 151/79 (103) 94 Mechanical Ventilator 30.00 05/17/23 04:53 70 164/94 05/17/23 04:28 96 Mechanical Ventilator 30.00 05/17/23 04:18 73 166/98 05/17/23 04:15 19 166/98 (125) 96 Mechanical Ventilator 30.00 05/17/23 04:00 36.3 154/86 (112) Mechanical Ventilator 30.00 05/17/23 03:45 155/83 (115) 05/17/23 03:30 73 18 154/88 (115) 96 Mechanical Ventilator 30.00 05/17/23 03:15 140/78 (104) 05/17/23 03:00 68 19 145/79 (106) 95 Mechanical Ventilator 30.00 05/17/23 02:49 72 19 96 30 05/17/23 02:45 73 19 158/86 (116) 96 Mechanical Ventilator 30.00 05/17/23 02:30 150/81 (107) 05/17/23 02:15 81 19 158/91 (119) 96 Mechanical Ventilator 30.00 05/17/23 02:00 72 19 151/91 (112) 96 Mechanical Ventilator 30.00 05/17/23 01:45 74 19 154/91 (117) 96 Mechanical Ventilator 30.00 05/17/23 01:30 70 18 149/79 (107) 96 Mechanical Ventilator 30.00 05/17/23 01:15 163/101 (127) 05/17/23 01:00 71 05/17/23 01:00 153/88 (113) 05/17/23 00:53 71 152/82 05/17/23 00:45 73 18 152/82 (112) 96 Mechanical Ventilator 30.00 05/17/23 00:37 72 153/74 05/17/23 00:30 154/79 (111) 05/17/23 00:18 37.0 05/16/23 23:59 96 Mechanical Ventilator 30.00 05/16/23 23:30 79 18 153/80 (112) 96 Mechanical Ventilator 30.00 05/16/23 23:15 80 19 174/98 (129) 98 Mechanical Ventilator 30.00 05/16/23 23:00 85 18 169/100 (129) 97 Mechanical Ventilator 30.00 05/16/23 22:45 78 18 156/90 (118) 95 Mechanical Ventilator 30.00 05/16/23 22:30 79 18 154/80 (111) 96 Mechanical Ventilator 30.00 05/16/23 22:15 78 19 160/87 (120) 96 Mechanical Ventilator 30.00 05/16/23 22:09 80 19 95 30 05/16/23 22:00 75 18 160/87 (111) 95 Mechanical Ventilator 30.00 05/16/23 21:15 76 18 162/87 (119) 96 Mechanical Ventilator 30.00 05/16/23 21:00 75 19 160/84 (116) 96 Mechanical Ventilator 30.00 05/16/23 20:45 71 18 161/100 (118) 96 Mechanical Ventilator 30.00 05/16/23 20:30 75 18 162/92 (117) 96 Mechanical Ventilator 30.00 05/16/23 20:15 76 19 163/88 (124) 95 Mechanical Ventilator 30.00 05/16/23 20:15 96 Mechanical Ventilator 30.00 05/16/23 20:00 72 18 162/92 (115) 96 Mechanical Ventilator 30.00 05/16/23 19:34 36.9 05/16/23 19:18 79 166/68 05/16/23 19:15 74 18 160/94 (121) 96 Mechanical Ventilator 30.00 05/16/23 19:06 75 166/97 05/16/23 19:01 73 19 95 30 05/16/23 19:00 75 18 166/97 (126) 95 Mechanical Ventilator 30.00 05/16/23 19:00 74 05/16/23 18:45 74 19 159/89 (116) 95 Mechanical Ventilator 30.00 05/16/23 18:30 79 18 161/102 (120) 95 Mechanical Ventilator 30.00 05/16/23 18:11 73 11 157/97 (117) 94 Mechanical Ventilator 30.00 05/16/23 17:00 82 19 170/92 (118) 96 Mechanical Ventilator 30.00 05/16/23 16:00 65 22 131/68 (89) 95 Mechanical Ventilator 30.00 05/16/23 15:21 37.1 05/16/23 15:07 71 19 93 30 05/16/23 15:00 37.6 75 19 125/74 (91) 94 Mechanical Ventilator 30.00 05/16/23 14:00 37.4 70 19 126/66 (86) 95 Mechanical Ventilator 30.00 05/16/23 13:00 37.6 79 18 127/70 (89) 95 Mechanical Ventilator 30.00 05/16/23 12:45 98 05/16/23 12:06 94 Mechanical Ventilator 30.00 05/16/23 12:00 37.6 75 19 133/70 (91) 97 Mechanical Ventilator 30.00 I & O 05/17/23 07:00 Intake Total 2256.9 ml Output Total 1650 ml Balance 606.9 ml Height & Weight Height: 5'5" Weight: 175lbs. oz. 79.043251jc; 33.85 BMI Method:Stated General Appearance: No Apparent Distress, WD/WN, Chronically ill HEENT: Moist Mucous Membranes; No Pale Conjunctivae (L), No Pale Conjunctivae (R) Neck: Normal Inspection, Non Tender, Supple; No Carotid Bruit, No JVD Respiratory: Lungs Clear, Normal Breath Sounds Cardiovascular: Regular Rate, Rhythm Extremity: Normal Capillary Refill, No Pedal Edema Neurologic/Psychiatric: Other (sedated via propofol ) Skin: Normal Color, Cool Lymphatic: No Adenopathy Results Lab Laboratory Tests 05/16/23 04:35 05/16/23 11:30 05/17/23 04:46 Assessment/Plan Assessment/Plan as above Critical Care: Ventilator Management Time spent with patient (mins): 40 PK RIOS MD May 17, 2023 11:51
--- NOTE | 2023-05-17 12:21 | Progress Note-Pre Operative ---
Pre-Operative Progress Note Date of Available H&P: May 17, 2023 Date H&P Reviewed: May 17, 2023 Time H&P Reviewed: 12:00 History & Physical: No changes noted Pre-Operative Diagnosis: upper GI bleed ROSY RODRIGUEZ MD May 17, 2023 12:21
--- NOTE | 2023-05-17 12:53 | Progress Note - Hospitalist ---
GT VOGT 05/17/23 1253: Subjective HPI/CC On Admission Date Seen by Provider: May 17, 2023 Time Seen by Provider: 11:04 Chief complaint: Altered mental status intubated to protect airway HPI: 52-year-old female who presented to the ER by EMS due to hypotension and altered mental status. Patient was intubated due to poor airway protection. I have reviewed the meds and labs and patient remains on antibiotics. Subjective/Events-last exam 05/17/2023: CC: AMS HPI: Brandy, 52F, is still intubated. She is unable to answer questions or give input. Today she was tracking with her eyes. There is no family at bedside. Caregiver noted that Brandy receives care due to depression. Vent Settings: 450 / 19 / 5.00 / 30% Review of Systems General: Other (unable to respond) HEENT: Other (unable to respond) Cardiovascular: Other (unable to respond) Gastrointestinal: Other (unable to respond) Genitourinary: Other (unable to respond) Neurological: Other (unable to respond) Focused Exam Lactate Level 05/14/23 23:22: Lactic Acid Level 1.36 05/15/23 03:28: Lactic Acid Level 1.60 05/15/23 22:54: Lactic Acid Level 1.28 Time of Focused Exam: 02:00 Objective Exam Vital Signs Vital Signs Date Time Temp Pulse Resp B/P (MAP) Pulse Ox O2 Delivery O2 Flow Rate FiO2 05/17/23 12:37 65 05/17/23 12:00 18 154/84 (110) 96 Mechanical Ventilator 30.00 05/17/23 11:52 36.2 05/17/23 11:19 30 Capillary Refill : General Appearance: No Apparent Distress, Obese (moderate) HEENT: PERRL/EOMI, Moist Mucous Membranes; No Scleral Icterus (L), No Scleral Icterus (R) Neck: Normal Inspection, Supple Respiratory: No Accessory Muscle Use, No Respiratory Distress, Other (ventilator in use ) Cardiovascular: Regular Rate, Rhythm, No JVD, No Murmur, Normal Peripheral Pulses Gastrointestinal: Normal Bowel Sounds, No Pulsatile Mass, Soft Rectal: Deferred Back: Normal Inspection Extremity: Normal Capillary Refill, Normal Inspection, Pedal Edema, Swelling Neurologic/Psychiatric: Other (propofol sedation, 25mg, tracking with eyes, mild grimace, consider precedex ) Skin: Normal Color, Warm/Dry Lymphatic: No Adenopathy Results/Procedures Lab Laboratory Tests 05/17/23 04:46 Patient resulted labs reviewed. Imaging: Reviewed Imaging Films, Reviewed Imaging Report Assessment/Plan Assessment and Plan Assess & Plan/Chief Complaint 05/17/2023: A/P: -Altered Mental Status * pt sedated with propofol down to 25, unable to reassess * consider precedex -Sepsis * Vancomycin, Unasyn, monitor labs, fluids * Blood culture was coag neg staph, awaiting sensitivities -Ventilator Associated PNA * Abx, monitor for MARLON -Airway Protection with Intubation * Monitor ventilation settings, FiO2 30 stable, potentially lessen more * Failed SBT 05/16 * RT management -Edema * third spacing, monitor -Hx of Depression/Anxiety -UTI * culture negative, continue with indwelling catheter care to prevent UTI -AMANDEEP * BUN and Cr normalized 05/16, monitor BUN and Cr 05/16/2023: Assessment/Plan: -Altered Mental Status * pt sedated with propofol, unable to reassess -Sepsis * start Vancomycin * Unasyn, monitor labs, fluids * Blood culture was coag neg staph, awaiting sensitivities -Airway Protection with Intubation * Monitor ventilation settings, FiO2 decreased from 35 to 30, potentially lessen more * RT management -Anemia * fluid replacement occuring, likely dilution based given decrease in all cell lines * monitor for signs of occult bleed -Hx of Depression/Anxiety -UTI * culture negative, continue with indwelling catheter care to prevent UTI -AMANDEEP * BUN and Cr normalized 05/16, monitor BUN and Cr 05/15/2023: Assessment/Plan: -Acute on Chronic Hypoxic Respiratory Failure * Intubation, continue to monitor ABG * Continue vent settings -Sepsis * Hydration, Monitoring of labs, Unasyn -AMANDEEP * monitor BUN and Cr, slow fluid replacement -UTI * Abx, await sensitivities -Hypotension * Fluid replacement -Elevated CK * monitor CMP Diagnosis/Problems Diagnosis/Problems (1) Sepsis Status: Acute Qualifiers: Qualified Codes: A41.9 - Sepsis, unspecified organism; R65.20 - Severe sepsis without septic shock; N17.9 - Acute kidney failure, unspecified (2) AMANDEEP (acute kidney injury) Status: Acute (3) AMS (altered mental status) Status: Acute Qualifiers: Qualified Codes: R41.82 - Altered mental status, unspecified (4) Dehydration Status: Acute (5) Hx of major depression (6) UTI (urinary tract infection) Status: Acute Qualifiers: Qualified Codes: N30.00 - Acute cystitis without hematuria CORRIE FRENCH DO 05/17/232124: Subjective Subjective/Events-last exam Maintain intubation IV antibiotics Objective Exam General Appearance: No Apparent Distress, WD/WN, Chronically ill Respiratory: Lungs Clear, Normal Breath Sounds Cardiovascular: Regular Rate, Rhythm Assessment/Plan Assessment and Plan Assess & Plan/Chief Complaint Wean protocol Supervisory-Addendum Brief Verification & Attestation Participated in pt care: history, MDM, physical Personally performed: exam, history, MDM, supervision of care Care discussed with: Medical Student Procedures: n/a Results interpretation: Verified all documentation Verification and Attestation of Medical Student E/M Service A medical student performed and documented this service in my presence. I reviewed and verified all information documented by the medical student and made modifications to such information, when appropriate. I personally performed the physical exam and medical decision making. Corrie French May 17, 2023,21:24 GT VOGT May 17, 2023 12:53 CORRIE FRENCH DO May 17, 2023 21:25
--- NOTE | 2023-05-17 13:01 | CONSULTATION REPORT ---
DATE OF SERVICE: 05/17/2023 ATTENDING PATIENT ASSESSMENT COORDINATOR: [facility] ADMITTING PHYSICIAN: Corrie Sullivan DO HISTORY OF PRESENT ILLNESS: The patient is a 52-year-old female with multiple medical problems and overall depressed based on the caregiver, who is present at her side. The patient is in some form of assisted living and was found to be on the floor and loss of consciousness; however, was breathing spontaneously. The patient was brought to the Emergency Department where she was found to be hypotensive and she was resuscitated and a right internal jugular central venous catheter was placed. The patient's blood gases were poor and the patient was intubated and admitted to the ICU. Since being admitted, the patient's initial hemoglobin was within normal range at 12.9. Her white count was elevated at 21.1, which has now resolved to 7.4. Her hemoglobin has slowly decreased to 9.3. She does have a nasogastric tube, which is dark in color. Upon further questioning, she does have a history of smoking for 40 pack years and does drink a significant amount of caffeinated beverages daily. PAST MEDICAL HISTORY: COPD, asthma, history of pneumonia, migraine headaches, depression. PAST SURGICAL HISTORY: section, laparoscopic cholecystectomy, tubal ligation, orthopedic procedures. ALLERGIES: No known drug allergies. MEDICATIONS: Aspirin 81 mg daily, atorvastatin 40 mg daily, buspirone 30 mg daily, clonazepam 0.5 mg daily, fludrocortisone 0.1 mg daily, fluoxetine 40 mg daily, gabapentin 600 mg t.i.d., hydrocodone p.r.n., omeprazole 20 mg daily, propranolol 80 mg daily, quetiapine fumarate 50 mg daily. SOCIAL HISTORY: Positive smoke 40 pack years, negative alcohol. FAMILY HISTORY: Noncontributory. VITAL SIGNS: Temperature 36.1, blood pressure 153/86, pulse 64, respirations 19. On SIMV mechanical ventilation at 30% FiO2 and a pulse ox at 96%. REVIEW OF SYSTEMS: Well-nourished female, currently arousable on a vent and sedated. She does not appear to be in any acute distress. Longstanding history of smoking as well as asthma and a previous history of pneumonia with 2 previous other admissions in the past 2 months. History of peptic ulcer disease and gastroesophageal reflux disease with dark nasogastric tube output. No known red blood per rectum, nor any dark tarry stools. No known fevers or chills or any recent inadvertent weight loss. All other review of systems negative. PHYSICAL EXAMINATION: CHEST: Scattered wheezes and rhonchi bilaterally. HEART: Regular. No murmurs. EXTREMITIES: Plus 1/3 bilateral lower extremity edema. Negative Homans sign. HEENT: No scleral icterus. No cervical lymphadenopathy. ABDOMEN: Soft, nontender, nondistended. SKIN: Warm, dry. ASSESSMENT AND PLAN: A 52-year-old female with history of chronic obstructive pulmonary disease and recurrent respiratory failure as well as chronic recurrent urinary tract infections with positive blood culture. She has been treated with antibiotics and is currently on the ventilator. Her hemoglobin has decreased slowly over time; however, this likely is due to a stress gastritis as well as a dilutional effect of IV fluids and other medications. We will continue with medical therapy for right now and increase her PPI acid donor specialist IV to a b.i.d. basis. We will also continue to monitor her hemoglobin, and we will also schedule an EGD on this admission. Job ID: [id number] DocumentID: [id number] Dictated Date: 05/17/2023 12:12:00 Speedboat Driver Date: 05/17/2023 12:59:00 Dictated By: ROSY RODRIGUEZ MD
[2023-05-17 15:47] VITALS: BP 173/98
[2023-05-17 18:22] VITALS: BP 183/100
[2023-05-17] MEDS ORDERED: LABETALOL 5 mg/ml 4 ML SINGLE DOSE SYRINGE IV NR (18:30)
[2023-05-17] MEDS: MUPIROCIN 2% OINTMENT 22 GM TUBE NSEACH SCH ×2 (18:37→20:35)
[2023-05-17] MEDS: ENOXAPARIN 40 MG/0.4 ML SYRINGE SC SCH (20:35)
[2023-05-17] MEDS: LABETALOL 5 mg/ml 4 ML SINGLE DOSE SYRINGE IV PRN (22:20)
[2023-05-17 22:46] VITALS: BP 176/102
[2023-05-18] MEDS: AMPICILLIN/SULBACTAM INJECTION 1.5 GM in NS (IVPB) 100 ML 100 ML IV SCH ×4 (01:52→19:50)
[2023-05-18] MEDS: LACTATED RINGERS 1,000 ML 1,000 ML IV SCH ×2 (01:52→23:30)
[2023-05-18] MEDS: DexMEDEtomidine 1,000mcg/250ml 250 ML IV SCH ×2 (03:57→20:30)
[2023-05-18] MEDS: LABETALOL 5 mg/ml 4 ML SINGLE DOSE SYRINGE IV PRN (04:30)
[2023-05-18 04:41] LABS: BASOPHILS % (AUTO) 0 % (0-10); EOSINOPHILS # (AUTO) 0.4 10^3/uL (0.0-0.3); EOSINOPHILS % (AUTO) 4 % (0-10); HEMATOCRIT 32 % (35-52); HEMOGLOBIN 10.7 g/dL (11.5-16.0); LYMPHOCYTES # (AUTO) 1.8 10^3/uL (1.0-4.0); LYMPHOCYTES % (AUTO) 19 % (12-44); MEAN CORPUSCULAR HEMOGLOBIN 30 pg (25-34); MEAN CORPUSCULAR HGB CONC 34 g/dL (32-36); MEAN CORPUSCULAR VOLUME 89 fL (80-99); MEAN PLATELET VOLUME 9.4 fL (9.0-12.2); MONOCYTES # (AUTO) 0.4 10^3/uL (0.0-1.0); MONOCYTES % (AUTO) 4 % (0-12); NEUTROPHILS # (AUTO) 6.8 10^3/uL (1.8-7.8); NEUTROPHILS % (AUTO) 72 % (42-75); PLATELET COUNT 268 10^3/uL (130-400); WHITE BLOOD COUNT 9.4 10^3/uL (4.3-11.0)
[2023-05-18 04:51] LABS: ALBUMIN 2.8 GM/DL (3.2-4.5); POTASSIUM 3.8 MMOL/L (3.6-5.0)
[2023-05-18 04:52] LABS: CALCIUM 8.4 MG/DL (8.5-10.1); SMEAR SCAN COMMENT YES
[2023-05-18 04:54] LABS: TOTAL PROTEIN 6.1 GM/DL (6.4-8.2)
[2023-05-18 04:55] LABS: BILIRUBIN,TOTAL 0.5 MG/DL (0.1-1.0)
[2023-05-18 04:57] LABS: CREATININE SERUM 1.06 MG/DL (0.60-1.30); PHOSPHORUS 5.2 MG/DL (2.3-4.7)
[2023-05-18 05:00] LABS: MAGNESIUM 1.7 MG/DL (1.6-2.4)
[2023-05-18 05:25] LABS: VANCOMYCIN,TROUGH 36.4 UG/ML (10.0-20.0)
[2023-05-18 05:43] LABS: ABG BASE EXCESS -0.8 MMOL/L (-2.5-2.5); ABG OXYGEN SATURATION 94 % (94-100); ABG PCO2 33 MMHG (35-45); ABG PH 7.45 (7.37-7.43); ABG PO2 72 MMHG (79-93); ABG TCO2 23.8 MMOL/L (21.0-31.0); ALLENS TEST YES-POS; INSPIRED O2 30%; PATIENT TEMP 36.5; VENTILATOR YES
[2023-05-18] MEDS ORDERED: POTASSIUM BICARB 20 MEQ effervescent TABLET PO ONE (06:00)
[2023-05-18] MEDS: POTASSIUM CL 10MEQ/50ML IVPB 50 ML IV SCH (06:17)
[2023-05-18] MEDS: MAGNESIUM 1 GM/100 ML IVPB 100 ML IV SCH ×5 (06:17→09:07)
[2023-05-18] MEDS: POTASSIUM CHLORIDE 20 MEQ TABLET PO SCH (06:17)
[2023-05-18] MEDS ORDERED: TROUGH ORDER-PHARMACY XX ONE ×3 (07:00→14:00)
[2023-05-18 07:35] VITALS: BP 160/98
[2023-05-18] MEDS: fentaNYL DRIP PRE-MIX 250 ML IV SCH ×2 (08:17→19:52)
[2023-05-18] MEDS: PANTOPRAZOLE INJECTION 40 MG VIAL IV SCH ×2 (09:06→20:14)
[2023-05-18] MEDS: MUPIROCIN 2% OINTMENT 22 GM TUBE NSEACH SCH ×2 (09:07→20:14)
--- NOTE | 2023-05-18 09:30 | Tele-ICU Progress Note ---
Subjective Date Seen by a Provider: May 18, 2023 Time Seen by a Provider: 09:24 Subjective/Events-last exam 52 yo F with Hx of obtundation, intubated for airway protection. also AMANDEEP, high LA-8, still high at 8.4, started on IV Unasyn for skin wounds, on IV Vanco, + BC for staph, On vent @ AC 19, Vt 470, FiO2 30%, PEEP 5, ABG 7.45/33/72, HCO3 23, CXR today shows ET in good position, mild congestion, Sedated with IV Precedex @ 0.6, IV Fentanyl @ 100 IV Propofol @ 15, RASS -3 Serology neg for Covid, RSV and flu PMH Hx of orthostatic hypotension with frequent falls On psych meds at home, To have EGD today for possible GIB Sepsis Event Evaluation Height, Weight, BMI Height: 5'5" Weight: 175lbs. oz. 79.486996tv; 33.85 BMI Method:Stated Focused Exam Lactate Level 05/15/23 22:54: Lactic Acid Level 1.28 Time of Focused Exam: 02:00 Exam Exam Patient acknowledged, consented, and participated in this virtual visit which was conducted using real time audio/video Vital Signs Date Time Temp Pulse Resp B/P (MAP) Pulse Ox O2 Delivery O2 Flow Rate FiO2 05/18/23 09:00 71 19 140/85 (106) 93 05/18/23 08:00 72 19 149/87 (113) 93 Mechanical Ventilator 30.00 05/18/23 08:00 36.4 05/18/23 08:00 93 Mechanical Ventilator 30 05/18/23 07:35 71 19 3 30 05/18/23 07:00 71 05/18/23 07:00 71 18 166/94 (123) 94 Mechanical Ventilator 30.00 05/18/23 06:00 73 15 170/95 (120) 94 Mechanical Ventilator 30.00 05/18/23 05:19 66 176/102 05/18/23 05:00 71 19 172/96 (121) 94 Mechanical Ventilator 30.00 05/18/23 04:25 36.5 05/18/23 04:00 94 Mechanical Ventilator 30.00 05/18/23 04:00 70 25 172/98 (122) 94 Mechanical Ventilator 30.00 05/18/23 03:57 66 176/102 05/18/23 03:00 70 14 172/96 (121) 94 Mechanical Ventilator 30.00 05/18/23 02:00 70 18 168/99 (122) 95 Mechanical Ventilator 30.00 05/18/23 01:00 70 19 174/96 (122) 94 Mechanical Ventilator 30.00 05/18/23 01:00 72 05/18/23 00:27 66 176/102 05/18/23 00:19 37.0 05/18/23 00:00 69 19 172/93 (119) 94 Mechanical Ventilator 30.00 05/18/23 00:00 94 Mechanical Ventilator 30.00 05/17/23 23:32 66 176/102 05/17/23 23:00 69 18 175/100 (125) 94 Mechanical Ventilator 30.00 05/17/23 22:46 66 19 94 30 05/17/23 22:00 70 18 170/98 (122) 94 Mechanical Ventilator 30.00 05/17/23 21:00 64 19 178/100 (126) 95 Mechanical Ventilator 30.00 05/17/23 20:34 59 183/100 05/17/23 20:11 94 Mechanical Ventilator 30.00 05/17/23 20:00 63 21 177/98 (124) 94 Mechanical Ventilator 30.00 05/17/23 19:38 36.9 05/17/23 19:32 59 183/100 05/17/23 19:00 65 05/17/23 19:00 64 19 170/107 (128) Mechanical Ventilator 30.00 05/17/23 18:22 59 19 94 30 05/17/23 18:00 59 18 180/98 (127) Mechanical Ventilator 30.00 05/17/23 17:00 59 19 176/102 (131) 93 Mechanical Ventilator 30.00 05/17/23 16:00 94 Mechanical Ventilator 30.00 05/17/23 16:00 60 18 174/101 (130) 93 Mechanical Ventilator 30.00 05/17/23 16:00 36.6 05/17/23 15:47 59 19 95 30 05/17/23 15:00 60 19 167/99 (124) Mechanical Ventilator 30.00 05/17/23 14:00 59 152/81 (109) 94 Mechanical Ventilator 30.00 05/17/23 13:00 62 19 127/76 (94) 94 Mechanical Ventilator 30.00 05/17/23 12:37 65 05/17/23 12:00 68 18 154/84 (110) 96 Mechanical Ventilator 30.00 05/17/23 11:52 36.2 05/17/23 11:41 64 153/86 05/17/23 11:40 64 153/86 05/17/23 11:19 69 19 96 30 05/17/23 11:00 64 148/80 (110) 98 Mechanical Ventilator 30.00 05/17/23 10:00 66 30 140/74 (103) 94 Mechanical Ventilator 30.00 I & O 05/18/23 07:00 Intake Total 2200 ml Output Total 9150 ml Balance -6950 ml Height & Weight Height: 5'5" Weight: 175lbs. oz. 79.321044ga; 33.85 BMI Method:Stated General Appearance: No Apparent Distress, WD/WN, Chronically ill HEENT: PERRL/EOMI, Moist Mucous Membranes; No Scleral Icterus (L), No Scleral Icterus (R); Other (pupils small due to IV Fentnayl) Neck: Normal Inspection, Supple Respiratory: Lungs Clear, Normal Breath Sounds Cardiovascular: Regular Rate, Rhythm Gastrointestinal: normal bowel sounds, non tender, soft Extremity: Normal Capillary Refill, Normal Inspection, Pedal Edema, Swelling Neurologic/Psychiatric: Other (propofol sedation, 25mg, tracking with eyes, mild grimace, consider precedex ) Skin: Normal Color, Warm/Dry, Other (has wound on clavicle below neck, ) Lymphatic: No Adenopathy Results Lab Laboratory Tests 05/16/23 11:30 05/17/23 04:46 05/18/23 04:34 Assessment/Plan Assessment/Plan Hypoxic resp failure, will try SBT, I am concerned about LA still at 8, will repeat, if not falling will look for another source of sepsis, intra abdominal? skin or soft tissue? moribd obesity with probable DIPTI continue on abx, local wound care Critical Care: Ventilator Management Time spent with patient (mins): 35 MELISSA MCCOY MD May 18, 2023 09:30
[2023-05-18 10:28] VITALS: BP 144/85
--- NOTE | 2023-05-18 12:00 | Progress Note-Post Operative ---
Post-Operative Progess Note Surgeon (s)/Network Account Manager (s) Surgeon ROSY RODRIGUEZ MD Network Account Manager: none Pre-Operative Diagnosis upper GI bleed Post-Operative Diagnosis reflux esophagitis(grade B), small HH(2cm), moderate-severe gastritis, no active bleed. Procedure & Operative Findings Date of Procedure 05/18/23 Procedure Performed/Findings EGD with bx. Anesthesia Type mac Estimated Blood Loss Estimated blood loss (mL): none Specimens/Packing Specimens Removed ge jxn, antrum ROSY RODRIGUEZ MD May 18, 2023 12:00
--- NOTE | 2023-05-18 12:32 | Diagnostic Imaging Report ---
EXAMINATION: Chest 1 view HISTORY: Tube placement COMPARISON: 05/18/2023 FINDINGS: An enteric catheter is present coursing below the diaphragm. The catheter is coiled within the left upper quadrant in expected location of the mid stomach. Lines and tubes are otherwise unchanged. Heart size is stable. Stable opacities the lung bases. IMPRESSION: 1. Enteric catheter placement with the tip coiled within the left upper quadrant in expected location of the mid stomach. Dictated by: Dictated on workstation # [id number]
--- NOTE | 2023-05-18 12:56 | Diagnostic Imaging Report ---
INDICATION: Altered mental status, mechanical ventilation with ICU management. TECHNIQUE: Single-view chest at 04:24 a.m. CORRELATION STUDY: 05/17/2023. FINDINGS: Right IJ central line, endotracheal tube and gastric tube remain in place. Heart size and mediastinum are enlarged and prominent. Vasculature is a mildly prominent but appears improved from prior. Likely minimal atelectasis, infiltrate, or edema at the left lung base. Trace pleural effusions. IMPRESSION: 1. Stable support lines and tubes. Overall appears to be decreased severity of edema from prior. Dictated by: Dictated on workstation # [id number]
--- NOTE | 2023-05-18 14:25 | Progress Note ---
Subjective HPI/CC On Admission Date Seen by Provider: May 18, 2023 Time Seen by Provider: 08:00 Chief complaint: Altered mental status intubated to protect airway HPI: 52-year-old female who presented to the ER by EMS due to hypotension and altered mental status. Patient was intubated due to poor airway protection. I have reviewed the meds and labs and patient remains on antibiotics. Subjective/Events-last exam No acute events overnight. Pt resting, sedated and intubated. Focused Exam Lactate Level 05/15/23 22:54: Lactic Acid Level 1.28 05/18/23 11:52: Lactic Acid Level 1.23 Time of Focused Exam: 02:00 Lactic Acid Level Laboratory Tests Test 05/18/23 11:52 Lactic Acid Level 1.23 MMOL/L (0.50-2.00) Objective Exam Vital Signs Vital Signs Date Time Temp Pulse Resp B/P (MAP) Pulse Ox O2 Delivery O2 Flow Rate FiO2 05/18/23 15:00 71 18 147/85 (113) 94 Mechanical Ventilator 30.00 05/18/23 14:32 30 05/18/23 12:00 35.9 Capillary Refill : General Appearance: No Apparent Distress Respiratory: Other (Coarse breath sounds BL) Cardiovascular: Regular Rate, Rhythm Gastrointestinal: Soft Results/Procedures Lab Laboratory Tests 05/18/23 04:34 Patient resulted labs reviewed. Imaging: Reviewed Imaging Films, Reviewed Imaging Report Assessment/Plan Assessment and Plan Assess & Plan/Chief Complaint -Altered Mental Status * Pt intubated on arrival to ED -Sepsis * Vancomycin, given positive sputum cx (MRSA) * Unasyn * Blood culture was coag neg staph, awaiting sensitivities * IVF * Daily CBC -Anemia * fluid replacement occurring, likely dilution based * monitor for signs of occult bleed * EGD 05/18 -Hx of Depression/Anxiety * H/o of medication OD x2 * UDS positive for benzodiazepines and TCAs -UTI * culture negative, continue with indwelling catheter care -AMANDEEP * WNL 05/18 * Daily CMP Diagnosis/Problems Diagnosis/Problems (1) Anemia Status: Acute (2) Altered mental status Status: Acute Qualifiers: Qualified Codes: R41.82 - Altered mental status, unspecified (3) Dehydration Status: Acute (4) Sepsis Status: Acute Qualifiers: Qualified Codes: A41.9 - Sepsis, unspecified organism; R65.20 - Severe sepsis without septic shock; N17.9 - Acute kidney failure, unspecified (5) AMANDEEP (acute kidney injury) Status: Acute (6) Hx of major depression (7) Acute on chronic hypoxic respiratory failure Status: Acute (8) Ventilator associated pneumonia LYNDSEY JOHNSON MD,RESIDENT May 18, 2023 14:25
[2023-05-18 14:32] VITALS: BP 155/91
--- NOTE | 2023-05-18 17:16 | OPERATIVE REPORT ---
DATE OF SERVICE: 05/18/2023 ATTENDING PRIMARY MANAGER UTILIZATION: [facility]. ADMITTING PHYSICIAN: Dr. Sullivan. PREOPERATIVE DIAGNOSIS: Upper gastrointestinal bleed. POSTOPERATIVE DIAGNOSES: Reflux esophagitis, Norton grade C, small hiatal hernia, 2 cm in size, moderate to severe gastritis, no active bleeding. PROCEDURE: EGD with biopsy. SURGEON: Rosy Rodriguez MD ANESTHESIA: Monitored anesthesia care. ESTIMATED BLOOD LOSS: Minimal. FINDINGS: Reflux esophagitis, Norton grade C, small hiatal hernia, 2 cm in size, moderate to severe gastritis, no active bleeding. DISPOSITION: The patient tolerated the procedure well. INDICATIONS: The patient is a 52-year-old female with multiple medical problems and depression based on the caregiver. The patient is in some form of assisted living, was found on the floor with loss of consciousness; however, was breathing spontaneously. The patient was brought to the Emergency Department and found to be hypotensive and was resuscitated and eventually intubated and admitted to the ICU. Since being admitted, her initial hemoglobin was in a normal range of 12.9 and she was found to have leukocytosis with a WBC of 21.1. This is now resolved to a normal range. Her hemoglobin has slowly decreased to 9.3. She does have an orogastric tube in and was initially red blood; however, has become more dark in color. The patient does have a history of smoking greater than 40 pack years. Does drink a significant amount of caffeinated beverages daily. DESCRIPTION OF PROCEDURE: The patient remained in the ICU and already on a ventilator and sedated. The mouthpiece was then applied. The endoscope was then placed in the mouth, visualizing the pharynx and hypopharyngeal region. Vocal cords, epiglottis and vallecula identified and appeared to be normal. The endoscope was then gently intubated in the esophageal opening and esophagus insufflated. The endoscope was then advanced into the first, second, third portions of esophagus at the level of the GE junction, a reflux esophagitis, Norton grade C identified. There were some areas of erosion likely secondary to a orogastric tube trauma, however, no active bleeding identified. A biopsy was taken with forceps with visualization of good hemostasis. The endoscope was then advanced into the stomach and endoscope retroflexed again visualizing the esophagitis and there was also a small hiatal hernia approximately 2 cm in size. A moderate to severe gastritis was noted throughout the stomach. No formal ulcerations, polyps or any neoplasms as well as no active bleeding. A biopsy was taken of the stomach, antrum to rule out H. pylori with visualization of good hemostasis. The endoscope was then advanced into the pylorus and the first and second portion of the duodenum, which appeared normal with no ulcerations or any active bleeding sources. The endoscope was then slowly withdrawn while taking a second look and suctioning of residual air with no additional findings. The patient tolerated the procedure well. We will continue with medical therapy with Protonix on a b.i.d. basis. We will allow for continued ICU care and eventual extubation. Long-term therapy will encompass the necessary lifestyle and dietary accommodation including small and more frequent meals, avoidance of eating at night as well as head elevation while lying supine. She also needs to proceed with smoking and caffeinated beverage cessation. She will also need to decrease her body mass index with any diet or exercise modality. Job ID: [id number] DocumentID: [id number] Dictated Date: 05/18/2023 12:06:26 Gi Tech Date: 05/18/2023 17:14:00 Dictated By: ROSY RODRIGUEZ MD
[2023-05-18 18:46] VITALS: BP 152/93
[2023-05-18] MEDS: ENOXAPARIN 40 MG/0.4 ML SYRINGE SC SCH (20:14)
[2023-05-18 21:40] VITALS: BP 162/89
[2023-05-19] MEDS: AMPICILLIN/SULBACTAM INJECTION 1.5 GM in NS (IVPB) 100 ML 100 ML IV SCH ×2 (01:24→07:34)
[2023-05-19 02:21] VITALS: BP 168/96
[2023-05-19 04:50] LABS: BASOPHILS % (AUTO) 0 % (0-10); EOSINOPHILS # (AUTO) 0.4 10^3/uL (0.0-0.3); EOSINOPHILS % (AUTO) 5 % (0-10); HEMATOCRIT 30 % (35-52); HEMOGLOBIN 10.3 g/dL (11.5-16.0); LYMPHOCYTES # (AUTO) 1.8 10^3/uL (1.0-4.0); LYMPHOCYTES % (AUTO) 22 % (12-44); MEAN CORPUSCULAR HEMOGLOBIN 30 pg (25-34); MEAN CORPUSCULAR HGB CONC 34 g/dL (32-36); MEAN CORPUSCULAR VOLUME 89 fL (80-99); MEAN PLATELET VOLUME 9.4 fL (9.0-12.2); MONOCYTES # (AUTO) 0.3 10^3/uL (0.0-1.0); MONOCYTES % (AUTO) 4 % (0-12); NEUTROPHILS # (AUTO) 5.6 10^3/uL (1.8-7.8); NEUTROPHILS % (AUTO) 68 % (42-75); PLATELET COUNT 267 10^3/uL (130-400); WHITE BLOOD COUNT 8.2 10^3/uL (4.3-11.0)
[2023-05-19 04:54] LABS: ABG OXYGEN SATURATION 94 % (94-100); ABG PCO2 31 MMHG (35-45); ABG PH 7.45 (7.37-7.43); ABG PO2 75 MMHG (79-93); ABG TCO2 22.4 MMOL/L (21.0-31.0); ALLENS TEST YES-POS; INSPIRED O2 30%; PATIENT TEMP 36.9; VENTILATOR YES
[2023-05-19 05:03] LABS: ALBUMIN 2.6 GM/DL (3.2-4.5); POTASSIUM 3.7 MMOL/L (3.6-5.0)
[2023-05-19 05:04] LABS: CALCIUM 8.4 MG/DL (8.5-10.1)
[2023-05-19 05:06] LABS: TOTAL PROTEIN 5.8 GM/DL (6.4-8.2)
[2023-05-19 05:07] LABS: BILIRUBIN,TOTAL 0.5 MG/DL (0.1-1.0)
[2023-05-19 05:08] LABS: PHOSPHORUS 4.7 MG/DL (2.3-4.7)
[2023-05-19 05:09] LABS: CREATININE SERUM 0.98 MG/DL (0.60-1.30)
[2023-05-19 05:10] LABS: MAGNESIUM 2.1 MG/DL (1.6-2.4)
[2023-05-19] MEDS: MAGNESIUM 1 GM/100 ML IVPB 100 ML IV SCH (06:02)
[2023-05-19] MEDS: POTASSIUM CHLORIDE 20 MEQ TABLET PO SCH (06:02)
[2023-05-19] MEDS: POTASSIUM CL 10MEQ/50ML IVPB 50 ML IV SCH (06:02)
[2023-05-19] MEDS ORDERED: POTASSIUM BICARB 20 MEQ effervescent TABLET PO ONE (06:15)
[2023-05-19 06:35] VITALS: BP 141/78
[2023-05-19] MEDS ORDERED: TROUGH ORDER-PHARMACY XX ONE (07:00)
[2023-05-19] MEDS: PANTOPRAZOLE INJECTION 40 MG VIAL IV SCH ×2 (07:34→20:15)
[2023-05-19] MEDS ORDERED: VANCOMYCIN 1250 MG/NS 250 ML PREMIX IV SCH (08:00)
[2023-05-19] MEDS: fentaNYL DRIP PRE-MIX 250 ML IV SCH (08:35)
[2023-05-19] MEDS: MUPIROCIN 2% OINTMENT 22 GM TUBE NSEACH SCH ×2 (08:35→20:15)
--- NOTE | 2023-05-19 09:25 | Tele-ICU Progress Note ---
Subjective Date Seen by a Provider: May 19, 2023 Subjective/Events-last exam eICU progress note Remains on vent AC 19, Vt 470 FiO2 30%, ABG 7.45/31/75, On IV Propofol @ 10, going down IV Precedex @ 0.6, and IV Fentanyl @ 100 RASS -1 On IV Vanco, IV Unasyn on hold, growing staph sp from central line, right IJ, site looks good WBC 8, Hb stable at 10.3, LA has come down to 1.23 Sepsis Event Evaluation Height, Weight, BMI Height: 5'5" Weight: 175lbs. oz. 79.001093cg; 33.85 BMI Method:Stated Focused Exam Lactate Level 05/18/23 11:52: Lactic Acid Level 1.23 Time of Focused Exam: 02:00 Exam Exam Patient acknowledged, consented, and participated in this virtual visit which was conducted using real time audio/video Vital Signs Date Time Temp Pulse Resp B/P (MAP) Pulse Ox O2 Delivery O2 Flow Rate FiO2 05/19/23 09:00 70 19 93 Mechanical Ventilator 30.00 05/19/23 08:00 66 18 155/90 (114) 94 Mechanical Ventilator 30.00 05/19/23 08:00 36.2 05/19/23 08:00 94 Mechanical Ventilator 30 05/19/23 07:00 66 05/19/23 07:00 66 19 151/90 (110) 95 Mechanical Ventilator 30.00 05/19/23 06:35 67 19 94 30 05/19/23 06:00 69 18 140/73 (95) 94 Mechanical Ventilator 30.00 05/19/23 05:00 68 19 142/74 (96) 94 Mechanical Ventilator 30.00 05/19/23 05:00 64 168/96 05/19/23 04:00 68 18 144/84 (104) 94 Mechanical Ventilator 30.00 05/19/23 03:20 36.9 05/19/23 03:18 94 Mechanical Ventilator 30.00 05/19/23 03:00 68 18 137/70 (92) 94 Mechanical Ventilator 30.00 05/19/23 02:21 64 19 94 30 05/19/23 02:00 61 18 168/96 (120) 94 Mechanical Ventilator 30.00 05/19/23 01:00 64 05/19/23 01:00 63 18 168/96 (120) 94 Mechanical Ventilator 30.00 05/19/23 00:30 66 162/96 05/19/23 00:00 66 18 162/96 (118) 94 Mechanical Ventilator 30.00 05/18/23 23:52 66 162/89 05/18/23 23:31 94 Mechanical Ventilator 30.00 05/18/23 23:00 66 18 165/97 (119) 94 Mechanical Ventilator 30.00 05/18/23 22:00 67 18 159/87 (111) 94 Mechanical Ventilator 30.00 05/18/23 21:40 66 19 94 30 05/18/23 21:38 66 162/89 05/18/23 21:00 66 19 156/89 (111) 94 Mechanical Ventilator 30.00 05/18/23 20:30 68 152/93 05/18/23 20:00 94 Mechanical Ventilator 30.00 05/18/23 20:00 66 20 164/93 (116) 94 Mechanical Ventilator 30.00 05/18/23 20:00 37.0 05/18/23 19:52 68 152/93 05/18/23 19:00 70 05/18/23 19:00 67 18 157/97 (117) 94 Mechanical Ventilator 30.00 05/18/23 18:46 68 19 94 30 05/18/23 18:00 68 19 153/91 (117) 94 Mechanical Ventilator 30.00 05/18/23 17:00 70 18 155/85 (115) 94 Mechanical Ventilator 30.00 05/18/23 16:00 93 Mechanical Ventilator 30 05/18/23 16:00 71 18 157/92 (114) 93 Mechanical Ventilator 30.00 05/18/23 16:00 37.2 05/18/23 15:00 71 18 147/85 (113) 94 Mechanical Ventilator 30.00 05/18/23 14:32 70 19 93 30 05/18/23 14:00 71 19 151/88 (110) 94 Mechanical Ventilator 30.00 05/18/23 13:00 70 18 150/88 (110) 94 Mechanical Ventilator 30.00 05/18/23 12:36 71 05/18/23 12:00 71 18 130/85 (105) 92 Mechanical Ventilator 30.00 05/18/23 12:00 35.9 05/18/23 12:00 93 Mechanical Ventilator 30 05/18/23 11:00 70 19 146/87 (106) 94 Mechanical Ventilator 30.00 05/18/23 10:28 70 19 93 30 05/18/23 10:00 71 18 138/81 (103) 93 Mechanical Ventilator 30.00 I & O 05/19/23 07:00 Intake Total 1000 ml Output Total 2450 ml Balance -1450 ml Height & Weight Height: 5'5" Weight: 175lbs. oz. 79.939105rb; 33.85 BMI Method:Stated General Appearance: No Apparent Distress HEENT: PERRL/EOMI, Moist Mucous Membranes; No Scleral Icterus (L), No Scleral Icterus (R); Other (pupils small due to IV Fentnayl) Neck: Normal Inspection, Supple Respiratory: Lungs Clear, Other (Coarse breath sounds BL) Cardiovascular: Regular Rate, Rhythm Gastrointestinal: normal bowel sounds, non tender, soft Extremity: Normal Capillary Refill, Normal Inspection, No Pedal Edema, Pedal Edema, Swelling Neurologic/Psychiatric: Other (propofol sedation, 25mg, tracking with eyes, mild grimace, consider precedex ) Skin: Normal Color, Warm/Dry, Other (has wound on clavicle below neck, ) Lymphatic: No Adenopathy Results Lab Laboratory Tests 05/18/23 04:34 05/19/23 04:43 Assessment/Plan Assessment/Plan Acute Resp Failure, will try to lighten sedation and see if can tolerate for SBT Continue abx Critical Care: Ventilator Management Time spent with patient (mins): 30 MELISSA MCCOY MD May 19, 2023 09:25
[2023-05-19 10:11] VITALS: BP 189/113
[2023-05-19] MEDS: hydrALAZINE INJECTION 20 MG/ML VIAL IV PRN ×2 (10:53→17:42)
[2023-05-19 11:13] VITALS: BP 129/77
--- NOTE | 2023-05-19 12:37 | Tele-ICU Progress Note ---
Subjective Date Seen by a Provider: May 19, 2023 Time Seen by a Provider: 12:34 Subjective/Events-last exam called for evaluate for extubation, awake, good cough, spont RR and minute ventilation are low will extubate If need to will order BiPAP 07/16 with FiO2 40% Sepsis Event Evaluation Height, Weight, BMI Height: 5'5" Weight: 175lbs. oz. 79.024153os; 33.85 BMI Method:Stated Focused Exam Lactate Level 05/18/23 11:52: Lactic Acid Level 1.23 Time of Focused Exam: 02:00 Exam Exam Patient acknowledged, consented, and participated in this virtual visit which was conducted using real time audio/video Vital Signs Date Time Temp Pulse Resp B/P (MAP) Pulse Ox O2 Delivery O2 Flow Rate FiO2 05/19/23 12:00 70 98/69 (81) 93 Mechanical Ventilator 30.00 05/19/23 11:13 78 14 93 30 05/19/23 11:00 75 129/77 (94) 92 Mechanical Ventilator 30.00 05/19/23 10:11 63 19 94 30 05/19/23 10:00 64 188/109 (135) 95 Mechanical Ventilator 30.00 05/19/23 09:00 70 19 93 Mechanical Ventilator 30.00 05/19/23 08:00 66 18 155/90 (114) 94 Mechanical Ventilator 30.00 05/19/23 08:00 36.2 05/19/23 08:00 94 Mechanical Ventilator 30 05/19/23 07:00 66 05/19/23 07:00 66 19 151/90 (110) 95 Mechanical Ventilator 30.00 05/19/23 06:35 67 19 94 30 05/19/23 06:00 69 18 140/73 (95) 94 Mechanical Ventilator 30.00 05/19/23 05:00 68 19 142/74 (96) 94 Mechanical Ventilator 30.00 05/19/23 05:00 64 168/96 05/19/23 04:00 68 18 144/84 (104) 94 Mechanical Ventilator 30.00 05/19/23 03:20 36.9 05/19/23 03:18 94 Mechanical Ventilator 30.00 05/19/23 03:00 68 18 137/70 (92) 94 Mechanical Ventilator 30.00 05/19/23 02:21 64 19 94 30 05/19/23 02:00 61 18 168/96 (120) 94 Mechanical Ventilator 30.00 05/19/23 01:00 64 05/19/23 01:00 63 18 168/96 (120) 94 Mechanical Ventilator 30.00 05/19/23 00:30 66 162/96 05/19/23 00:00 66 18 162/96 (118) 94 Mechanical Ventilator 30.00 05/18/23 23:52 66 162/89 05/18/23 23:31 94 Mechanical Ventilator 30.00 05/18/23 23:00 66 18 165/97 (119) 94 Mechanical Ventilator 30.00 05/18/23 22:00 67 18 159/87 (111) 94 Mechanical Ventilator 30.00 05/18/23 21:40 66 19 94 30 05/18/23 21:38 66 162/89 05/18/23 21:00 66 19 156/89 (111) 94 Mechanical Ventilator 30.00 05/18/23 20:30 68 152/93 05/18/23 20:00 94 Mechanical Ventilator 30.00 05/18/23 20:00 66 20 164/93 (116) 94 Mechanical Ventilator 30.00 05/18/23 20:00 37.0 05/18/23 19:52 68 152/93 05/18/23 19:00 70 05/18/23 19:00 67 18 157/97 (117) 94 Mechanical Ventilator 30.00 05/18/23 18:46 68 19 94 30 05/18/23 18:00 68 19 153/91 (117) 94 Mechanical Ventilator 30.00 05/18/23 17:00 70 18 155/85 (115) 94 Mechanical Ventilator 30.00 05/18/23 16:00 93 Mechanical Ventilator 30 05/18/23 16:00 71 18 157/92 (114) 93 Mechanical Ventilator 30.00 05/18/23 16:00 37.2 05/18/23 15:00 71 18 147/85 (113) 94 Mechanical Ventilator 30.00 05/18/23 14:32 70 19 93 30 05/18/23 14:00 71 19 151/88 (110) 94 Mechanical Ventilator 30.00 05/18/23 13:00 70 18 150/88 (110) 94 Mechanical Ventilator 30.00 05/18/23 12:36 71 I & O 05/19/23 07:00 Intake Total 1000 ml Output Total 2450 ml Balance -1450 ml Height & Weight Height: 5'5" Weight: 175lbs. oz. [id number]; 33.85 BMI Method:Stated General Appearance: No Apparent Distress HEENT: PERRL/EOMI, Moist Mucous Membranes; No Scleral Icterus (L), No Scleral Icterus (R); Other (pupils small due to IV Fentnayl) Neck: Normal Inspection, Supple Respiratory: Lungs Clear, Other (Coarse breath sounds BL) Cardiovascular: Regular Rate, Rhythm Gastrointestinal: normal bowel sounds, non tender, soft Extremity: Normal Capillary Refill, Normal Inspection, No Pedal Edema, Pedal Edema, Swelling Neurologic/Psychiatric: Other (propofol sedation, 25mg, tracking with eyes, mild grimace, consider precedex ) Skin: Normal Color, Warm/Dry, Other (has wound on clavicle below neck, ) Lymphatic: No Adenopathy Results Lab Laboratory Tests 05/18/23 04:34 05/19/23 04:43 Assessment/Plan Assessment/Plan called for evaluate for extubation, awake, good cough, spont RR and minute ventilation are low will extubate If need to will order BiPAP 12/5 with FiO2 40% Time spent with patient (mins): 15 MELISSA MCCOY MD May 19, 2023 12:37
--- NOTE | 2023-05-19 13:27 | Progress Note ---
CHRISTINA RAHMAN MD, RESIDENT 05/19/23 1327: Subjective HPI/CC On Admission Date Seen by Provider: May 19, 2023 Time Seen by Provider: 10:40 Chief complaint: Altered mental status intubated to protect airway HPI: 52-year-old female who presented to the ER by EMS due to hypotension and altered mental status. Patient was intubated due to poor airway protection. I have reviewed the meds and labs and patient remains on antibiotics. Subjective/Events-last exam Patient continues to be intubated. Unable to obtain HPI and review of systems due to this. Patient did open her eyes when her name was called but otherwise did not have any other interaction. Focused Exam Lactate Level 05/18/23 11:52: Lactic Acid Level 1.23 Time of Focused Exam: 02:00 Objective Exam Vital Signs Vital Signs Date Time Temp Pulse Resp B/P (MAP) Pulse Ox O2 Delivery O2 Flow Rate FiO2 05/19/23 12:28 79 05/19/23 12:00 98/69 (81) 93 Mechanical Ventilator 30.00 05/19/23 12:00 36.2 05/19/23 11:13 14 30 Capillary Refill : General Appearance: No Apparent Distress HEENT: PERRL/EOMI, Other (Pupils appear pinpoint) Respiratory: Chest Non Tender, Lungs Clear, Normal Breath Sounds, No Accessory Muscle Use, No Respiratory Distress Cardiovascular: Regular Rate, Rhythm, No Edema, No Murmur Gastrointestinal: Normal Bowel Sounds, Non Tender, Soft Neurologic/Psychiatric: Other (Intubated and under sedation) Results/Procedures Lab Laboratory Tests 05/19/23 04:43 Patient resulted labs reviewed. Imaging: Reviewed Imaging Films, Reviewed Imaging Report Assessment/Plan Assessment and Plan Assess & Plan/Chief Complaint Altered mental status and sepsis of unknown origin Diagnosis/Problems Diagnosis/Problems (1) AMS (altered mental status) Status: Acute Assessment & Plan: Unknown cause at this time. Patient is also under sedation due to intubation. Will continue to assess mental status once able to extubate. We will try breathing trial and extubation today Noting nutrition's recommendations for pulm care. We will hold off on starting this if able to extubate today. Qualifiers: Qualified Codes: R41.82 - Altered mental status, unspecified (2) Sepsis Status: Acute Assessment & Plan: Unknown source of sepsis at this time. Sputum cultures are growing gram-positive cocci. Blood cultures growing 204 Staph epidermidis. Patient is currently on vancomycin and Unasyn. Awaiting sensitivities. Continue vancomycin and Unasyn. Consider discontinuing vancomycin tomorrow given that there is no evidence of MRSA and sputum and blood cultures. Continue monitoring CBCs, leukocytosis is resolved at this time. Qualifiers: Qualified Codes: A41.9 - Sepsis, unspecified organism; R65.20 - Severe sepsis without septic shock; N17.9 - Acute kidney failure, unspecified (3) Anemia Status: Acute Assessment & Plan: Thought to be initially due to dilution secondary to fluids. However OG was noted to be outputting blood. EGD was done yesterday which was negative for any active sources of bleeding, notable for gastritis and then a 2 cm hiatal hernia. Hemoglobin is continuing to remain stable changed from 10.7 to 10.3 today. Continue to monitor for sources of bleeding Continue monitoring daily CBCs Qualifiers: Qualified Codes: D64.9 - Anemia, unspecified (4) Hx of major depression Status: Chronic Assessment & Plan: Patient has a history of medication overdose x2. UDS was positive for benzodiazepines and TCAs. We will have to discuss medication regimen and dispo pending extubation and assessment of mental status. (5) Urinary tract infection Status: Acute Assessment & Plan: culture negative, continue with indwelling catheter care KYLE FRENCH DO 05/19/23 1453: Subjective Subjective/Events-last exam SBT today Unasyn on so DC Vanc DC Objective Exam General Appearance: No Apparent Distress, WD/WN, Chronically ill Respiratory: Lungs Clear, Normal Breath Sounds Assessment/Plan Assessment and Plan Assess & Plan/Chief Complaint SBT Monitor closely CHRISTINA RAHMAN MD, RESIDENT May 19, 2023 13:27 KYLE FRENCH DO May 19, 2023 14:53
[2023-05-19] MEDS ORDERED: AMOX-355 PO (14:21)
--- NOTE | 2023-05-19 14:22 | Discharge Summary ---
Discharge Summary Hospital Course Was the Problem List Reviewed?: Yes Problems/Dx: (1) AMS (altered mental status) Status: Acute Assessment & Plan: Patient extubated today. Upon extubation, I reassessed and noted that patient was alert and oriented x3. Discussed hospitalization, treatment and risks of leaving and patient was able to relay the same information back to me. Qualifiers: Qualified Codes: R41.82 - Altered mental status, unspecified (2) Sepsis Status: Resolved Assessment & Plan: Leukocytosis resolved and vital signs are stable. Patient has been improving with Vanco and Unasyn treatment. Source of infection is unclear still at this time however it is likely due to pneumonia given that sputum culture was growing gram-positive cocci. This is also led to bacteremia with Staph epidermidis. Patient insistent on leaving AGAINST MEDICAL ADVICE. Will treat with Augmentin in the outpatient. We will also have patient closely follow-up with PCP. Qualifiers: Qualified Codes: A41.9 - Sepsis, unspecified organism; R65.20 - Severe s epsis without septic shock; N17.9 - Acute kidney failure, unspecified (3) Anemia Status: Acute Assessment & Plan: Anemia is chronic as discussed previously. Hemoglobin has been staying stable at 10.7 to 10.3 today. There was bloody output noted from OG tube however EGD done by Dr. RODRIGUEZ was unremarkable for any active sources of bleeding. There are otherwise no other signs of bleeding noted. The patient's hemoglobin has otherwise remained stable, can work-up further in the outpatient. Qualifiers: Qualified Codes: D64.9 - Anemia, unspecified (4) Hx of major depression Status: Chronic Assessment & Plan: Patient has a history of overdose x2. Cause of altered mental status is unclear at this time as prior admission was due to overdose on her medications however this admission may be due to pneumonia. Will try and hold lorazepam in the outpatient however will need to discuss with primary care or mental health doctor on restarting her psychiatric medications safely (5) Urinary tract infection Status: Resolved Assessment & Plan: Initially thought to have a UTI given UA results however urine culture showed no growth and thus unlikely to be source of infection. Hospital Course Date of Admission: May 14, 2023 at 21:58 Admission Diagnosis : Family Physician/Provider: [place] Date of Discharge: 05/19/23 Discharge Diagnosis: [Pneumonia and bacteremia] Hospital Course: [Patient initially presented to the ED on 05/14 due to altered mental status. Unable to obtain history given that patient was intubated upon arrival due to significant lethargy. It was presumed that patient's altered mental status was possibly due to infection versus overdose on psychiatric medications. Initially patient was thought to have a UTI given that patient had 5-10 WBC and large bacteria however urine culture showed no growth. Sputum culture was notable initially for gram-positive cocci concerning for MRSA and thus patient was put on vancomycin and Unasyn to broadly treat. Treatment was continued in this manner. It was noted that patient was having possible bloody output from her OG tube and thus patient was taken for EGD on 05/18 which was negative for any active sources of bleeding but was notable for severe gastritis and 2 cm hiatal hernia. Patient's hemoglobin continued to remain stable and OG was no longer showing any bloody output. Sputum culture was finalized to show rare gram- positive cocci however blood cultures were growing Staph epidermidis. Continued treatment with vancomycin and Unasyn. Patient had a breathing trial completed on 05/19 which was able to lead to successful extubation. Upon extubation, patient became agitated and requested to go home. We discussed her hospitalizat ion and assessed her mental status which was AAO x3. Patient was able to relay the risks of going home given that she has bacteremia. However patient continued to insist and thus patient was discharged AMA. Augmentin has been sent to her local pharmacy to continue treatment in the outpatient however patient will need close monitoring with PCP to ensure that infection is not wors ening] Labs and Pending Lab Test: Laboratory Tests 05/18/23 17:49: Glucometer 100 05/18/23 23:24: Glucometer 95 05/19/23 04:43: White Blood Count 8.2, Red Blood Count 3.39L, Hemoglobin 10.3L, Hematocrit 30L, Mean Corpuscular Volume 89, Mean Corpuscular Hemoglobin 30, Mean Corpuscular Hemoglobin Concent 34, Red Cell Distribution Width 12.3, Platelet Count 267, Mean Platelet Volume 9.4, Immature Granulocyte % (Auto) 1, Neutrophils (%) (Auto) 68, Lymphocytes (%) (Auto) 22, Monocytes (%) (Auto) 4, Eosinophils (%) (Auto) 5, Basophils (%) (Auto) 0, Neutrophils # (Auto) 5.6, Lymphocytes # (Auto) 1.8, Monocytes # (Auto) 0.3, Eosinophils # (Auto) 0.4H, Basophils # (Auto) 0.0, Immature Granulocyte # (Auto) 0.0, Sodium Level 138, Potassium Level 3.7, Chloride Level 105, Carbon Dioxide Level 21, Anion Gap 12, Blood Urea Nitrogen 8, Creatinine 0.98, Estimat Glomerular Filtration Rate 69, BUN/Creatinine Ratio 8, Glucose Level 89, Calcium Level 8.4L, Corrected Calcium 9.5, Phosphorus Level 4.7, Magnesium Level 2.1, Total Bilirubin 0.5, Aspartate Amino Transf (AST/SGOT) 13, Alanine Aminotransferase (ALT/SGPT) 9, Alkaline Phosphatase 51, Total Protein 5.8L, Albumin 2.6L, Triglycerides Level 269H, Vancomycin Level Trough 12.0 05/19/23 04:45: Blood Gas Puncture Site LEFT RADIAL, Blood Gas Patient Temperature 36.9, Arterial Blood pH 7.45H, Arterial Blood Partial Pressure CO2 31L, Arterial Blood Partial Pressure O2 75L, Arterial Blood HCO3 21L, Arterial Blood Total CO2 22.4, Arterial Blood Oxygen Saturation 94, Arterial Blood Base Excess -2.0, Daniel Test YES-POS, Blood Gas Ventilator Setting YES, Blood Gas Inspired Oxygen 30% 05/19/23 11:39: Glucometer 88 Microbiology 05/16/23 Gram Stain - Final, Complete 05/16/23 Sputum Culture - Final, Complete Staphylococcus aureus Mixed Bacterial Raeann 05/14/23 Blood Culture - Preliminary, Resulted Staphylococcus epidermidis No Susceptibility Performed 05/14/23 Urine Culture - Final, Complete NO GROWTH Home Meds Active Augmentin 500-125 Tablet (Amoxicillin/Potassium Clav) 500 Mg-125 Mg Tablet 1 Each PO TID 7 Days Reported Aspirin EC (Aspirin) 81 Mg Tablet.dr 81 Mg PO HS Multivitamin 1 Each Tablet 1 Each PO DAILY Atorvastatin Calcium 40 Mg Tablet 40 Mg PO DAILY Quetiapine Fumarate 50 Mg Tablet 50-100 Mg PO HS TAKES 1 TO 2 (50MG) TABS Buspirone HCl 30 Mg Tablet 30 Mg PO BID Clonazepam 0.5 Mg Tablet 0.5 Mg PO DAILY Fluoxetine HCl 40 Mg Capsule 40 Mg PO DAILY Hydrocodone-Acetamin 5-325 mg (Hydrocodone/Acetaminophen) 5 Mg-325 Mg Tablet 1 Ea PO Q8H PRN Omeprazole 20 Mg Capsule. 20 Mg PO DAILY Fludrocortisone Acetate 0.1 Mg Tab 0.1 Mg PO DAILY Ondansetron Odt (Ondansetron) 4 Mg Tab.rapdis 4 Mg PO TID PRN Propranolol HCl ER (Propranolol HCl) 80 Mg Cap.sa.24h 80 Mg PO DAILY Gabapentin 600 Mg Tablet 600 Mg PO TID Assessment/Pt Instructions Please see electronic discharge instructions given to patient. Discharge Planning: >30 minutes discharge planning Discharge Instructions Discharge Diet: No Restrictions Discharge Physical Examination Vital Signs Vital Signs Date Time Temp Pulse Resp B/P (MAP) Pulse Ox O2 Delivery O2 Flow Rate FiO2 05/19/23 13:00 90 137/85 (102) 94 05/19/23 12:00 Mechanical Ventilator 30.00 05/19/23 12:00 36.2 05/19/23 11:13 14 30 Allergies: Coded Allergies: No Known Drug Allergies (Unverified , 06/26/14) Discharge Summary Date of Admission May 14, 2023 at 21:58 Date of Discharge Admission Diagnosis Assessment: Altered mental status Sepsis Respiratory compromise requiring intubation Plan: IV antibiotics Supportive care Discharge Diagnosis Altered mental status and sepsis of unknown origin (1) AMS (altered mental status) Status: Acute Assessment & Plan: Unknown cause at this time. Patient is also under sedation due to intubation. Will continue to assess mental status once able to extubate. We will try breathing trial and extubation today Noting nutrition's recommendations for pulm care. We will hold off on starting this if able to extubate today. Qualifiers: Qualified Codes: R41.82 - Altered mental status, unspecified (2) Sepsis Status: Resolved Assessment & Plan: Unknown source of sepsis at this time. Sputum cultures are growing gram-positive cocci. Blood cultures growing 204 Staph epidermidis. Patient is currently on vancomycin and Unasyn. Awaiting sensitivities. Continue vancomycin and Unasyn. Consider discontinuing vancomycin tomorrow given that there is no evidence of MRSA and sputum and blood cultures. Continue monitoring CBCs, leukocytosis is resolved at this time. Qualifiers: Qualified Codes: A41.9 - Sepsis, unspecified organism; R65.20 - Severe sepsis without septic shock; N17.9 - Acute kidney failure, unspecified (3) Anemia Status: Acute Assessment & Plan: Thought to be initially due to dilution secondary to fluids. However OG was noted to be outputting blood. EGD was done yesterday which was negative for any active sources of bleeding, notable for gastritis and then a 2 cm hiatal hernia. Hemoglobin is continuing to remain stable changed from 10.7 to 10.3 today. Continue to monitor for sources of bleeding Continue monitoring daily CBCs Qualifiers: Qualified Codes: D64.9 - Anemia, unspecified (4) Hx of major depression Status: Chronic Assessment & Plan: Patient has a history of medication overdose x2. UDS was positive for benzodiazepines and TCAs. We will have to discuss medication regimen and dispo pending extubation and assessment of mental status. (5) Urinary tract infection Status: Resolved Assessment & Plan: culture negative, continue with indwelling catheter care CHRISTINA RAHMAN MD, RESIDENT May 19, 2023 14:22
[2023-05-19] MEDS ORDERED: NALOXONE 0.4 MG/ML 1 ML VIAL IV PRN (15:45)
[2023-05-19] MEDS: oxyCODONE IMMEDIATE RELEASE 5 MG TABLET PO PRN (15:52)
[2023-05-19] MEDS ORDERED: ONDANSETRON INJECTION 4 MG/2 ML (SDV) ONE (18:04)
[2023-05-19] MEDS: ONDANSETRON INJECTION 4 MG/2 ML (SDV) IVP PRN (18:07)
[2023-05-19] MEDS ORDERED: ANTACID SUSPENSION 30 ML UDC PO PRN (19:30)
[2023-05-19] MEDS ORDERED: CALCIUM CARBONATE 500 MG CHEW TABLET PO PRN (19:30)
[2023-05-19] MEDS: ENOXAPARIN 40 MG/0.4 ML SYRINGE SC SCH (20:15)
[2023-05-19] MEDS: ACETAMINOPHEN 500 MG TABLET PO SCH (20:15)
[2023-05-20] MEDS: ONDANSETRON INJECTION 4 MG/2 ML (SDV) IVP PRN ×3 (00:40→22:51)
[2023-05-20] MEDS: LACTATED RINGERS 1,000 ML 1,000 ML IV SCH (02:56)
[2023-05-20 05:15] LABS: BASOPHILS % (AUTO) 0 % (0-10); EOSINOPHILS # (AUTO) 0.1 10^3/uL (0.0-0.3); EOSINOPHILS % (AUTO) 1 % (0-10); HEMATOCRIT 32 % (35-52); HEMOGLOBIN 10.8 g/dL (11.5-16.0); LYMPHOCYTES # (AUTO) 1.2 10^3/uL (1.0-4.0); LYMPHOCYTES % (AUTO) 9 % (12-44); MEAN CORPUSCULAR HEMOGLOBIN 30 pg (25-34); MEAN CORPUSCULAR HGB CONC 34 g/dL (32-36); MEAN CORPUSCULAR VOLUME 91 fL (80-99); MEAN PLATELET VOLUME 9.7 fL (9.0-12.2); MONOCYTES # (AUTO) 0.5 10^3/uL (0.0-1.0); MONOCYTES % (AUTO) 3 % (0-12); NEUTROPHILS # (AUTO) 12.5 10^3/uL (1.8-7.8); NEUTROPHILS % (AUTO) 87 % (42-75); PLATELET COUNT 298 10^3/uL (130-400); WHITE BLOOD COUNT 14.4 10^3/uL (4.3-11.0)
[2023-05-20 05:38] LABS: POTASSIUM 3.9 MMOL/L (3.6-5.0)
[2023-05-20 05:39] LABS: CALCIUM 8.8 MG/DL (8.5-10.1)
[2023-05-20 05:41] LABS: TOTAL PROTEIN 6.6 GM/DL (6.4-8.2)
[2023-05-20 05:42] LABS: BILIRUBIN,TOTAL 0.6 MG/DL (0.1-1.0)
[2023-05-20] MEDS: POTASSIUM CL 10MEQ/50ML IVPB 50 ML IV SCH (05:42)
[2023-05-20 05:44] LABS: CREATININE SERUM 0.96 MG/DL (0.60-1.30); PHOSPHORUS 4.3 MG/DL (2.3-4.7)
[2023-05-20] MEDS ORDERED: POTASSIUM CHLORIDE 20 MEQ TABLET PO ONE (05:45)
[2023-05-20 05:47] LABS: MAGNESIUM 2.1 MG/DL (1.6-2.4)
[2023-05-20] MEDS: MAGNESIUM 1 GM/100 ML IVPB 100 ML IV SCH (05:48)
[2023-05-20] MEDS: ACETAMINOPHEN 500 MG TABLET PO SCH ×3 (06:01→20:37)
[2023-05-20] MEDS: POTASSIUM CHLORIDE 20 MEQ TABLET PO SCH (06:02)
[2023-05-20 06:20] LABS: LYMPHOCYTES % (MANUAL) 7 %; MONOCYTES % (MANUAL) 2 %; NEUTROPHILS % (MANUAL) 91 %; RBC MORPH NORMAL
--- NOTE | 2023-05-20 08:10 | Physical Therapy Evaluation ---
PT Evaluation-General Medical Diagnosis Admission Date May 14, 2023 at 21:58 Medical Diagnosis: anemia Onset Date: May 14, 2023 Therapy Diagnosis Therapy Diagnosis: debility Height/Weight Height (Feet): 5 Height (Inches): 5 Weight (Pounds): 175 Precautions Precautions/Isolations: Fall Prevention, Standard Precautions Referral Physician: Cayden Reason for Referral: Evaluation/Treatment Medical History Pertinent Medical History: COPD, GERD Current History EMS secondary to AMS/found on the floor unresponsive Reviewed History: Yes Social History Home: Apartment Current Living Status: Alone Prior Prior Level of Function SCALE: Activities may be completed with or without assistive devices. 2-Qxtkoeojob-jvffrlo completes the activity by him/herself with no assistance from a helper. 5-Set-up or Clean-up Assistance-helper sets up or cleans up; patient completes activity. [place] assists only prior to or following the activity. 4-Supervision or Touching Assistance-helper provides verbal cues and/or touching/steadying and/or contact guard assistance as patient completes activity. Assistance may be provided throughout the activity or intermittently. 3-Partial/Moderate Assistance-helper does LESS THAN HALF the effort. [place] lifts, holds or supports trunk or limbs, but provides less than half the effort. 2-Substantial/Maximal Assistance-helper does MORE THAN HALF the effort. [place] lifts or holds trunk or limbs and provides more than half the effort. 3-Idvrlfvco-aadkao does ALL the effort. Patient does none of the effort to complete the activity. Or, the assistance of 2 or more helpers is required for the patient to complete the activity. If activity was not attempted, code reason: 7-Patient Refused. 9-Not Applicable-not attempted and the patient did not perform the activity before the current illness, exacerbation or injury. 10-Not Attempted due to Environmental Limitations-(lack of equipment, weather restraints, etc.). 88-Not Attempted due to Medical Conditions or Safety Concerns. Bed Mobility: 6 Transfers (B,C,W/C): 6 Gait: 6 Indoor Mobility (Ambulation): Independent Prior Devices Use: Walker PT Evaluation-Current Subjective Patient agrees to PT. Objective Patient Orientation: Normal For Age ROM/Strength ROM Lower Extremities bilateral LE WFL Strength Lower Extremities 4/5 grossly bilateral LE all planes Integumentary/Posture Bowel Incontinence: No Bladder Incontinence: No Posture WFL Neuromuscular (Tone, Coordination, Reflexes) grossly intact Sensory Vision: Functional Hearing: Impaired Transfers Lying to Sitting/Side of Bed(Q: 6 Sit to Stand (QC): 6 Chair/Djh-lp-Vwaxi Xfer(QC): 6 Toilet Transfer (QC): 6 Gait Mode of Locomotion: Walk Anticipated Mode of Locomotion: Walk Walk 10 feet (QC): 5 Walk 50 ft with 2 Turns(QC): 5 Gait Assistive Device: FWW Comments/Gait Description safe and functional with no deviation Balance Sitting Static: Normal Sitting Dynamic: Normal Standing Static: Normal Standing Dynamic: Normal Assessment/Needs Patient is currently at [facility] with all gross motor skills safely and does not require skilled PT intervention at this time. Rehab Potential: Fair PT Plan Treatment/Plan Treatment Plan: Discontinue PT Treatment Duration: May 20, 2023 Frequency: 1 time per week Estimated Hrs Per Day: .25 hour per day Patient and/or Family Agrees t: Yes Time Time In: 735 Time Out: 748 DATE: May 20, 2023 Total Billed Treatment Time: 13 Total Billed Treatment 1 visit [facility] 13 min MARILEE AGUAYO PT May 20, 2023 08:10
[2023-05-20] MEDS: PANTOPRAZOLE INJECTION 40 MG VIAL IV SCH (09:40)
[2023-05-20] MEDS: PANTOPRAZOLE 40 MG TABLET PO SCH ×2 (10:20→20:37)
[2023-05-20] MEDS: MUPIROCIN 2% OINTMENT 22 GM TUBE NSEACH SCH ×2 (10:21→20:37)
[2023-05-20] MEDS: ONDANSETRON 4 MG ORAL DISSOLVE TABLET PO PRN ×2 (10:21→18:36)
[2023-05-20] MEDS: NICOTINE 21 MG PATCH TD SCH (10:34)
--- NOTE | 2023-05-20 11:48 | Tele-ICU Progress Note ---
Subjective Date Seen by a Provider: May 20, 2023 Time Seen by a Provider: 11:42 Subjective/Events-last exam (Tele-ICU Physician , Progress Note ) Service provided via interactive audio and video telecommunications [facility] s te to a patient admitted to ICU bed in [facility]. Patient is seen today due to persistent need of ICU care Available chart/ vitals / labs / Images reviewed Video assessment done using teleICU camera, rest of exam as per RN She is a 52-year-old female who is moderately obese has a history of some blocked mentally challenged, orthostatic hypotension, recurrent syncopal episodes found on the floor with a markedly decreased due to mental status and she was brought to the emergency room where she is intubated for airway protection. She is also found to have acute kidney injury, mild lactic acidosis. There is a possibility of urinary tract infection as well. Sepsis is suspected and started on IV antibiotics. She has been on multiple psych medications as well as pain medications including [place] and gabapentin. 05/17/23 she is not ready for SBT. ngt draining reddish fluid but hb stable. RN reports that pt has generalised swelling. sputum groing MRSA 05/20/23. she was extubated on 05/19/23. now sitting in bed side chair, on RA. AAOx3 . no distress Impression number 1. Acute hypoxic respiratory failure requiring mechanical ventilation s/p extub ation 2. Acute kidney injury probably due to sepsis and dehydration improved 3. Urinary tract infection and possibly pneumonia with mrsa 4. Moderate obesity 5. History of orthostatic hypotension and frequent syncopal episodes. She has been on fludrocortisone acetate. Recommendations 1. Continue supportive care 2. Advance diet 3. IV antibiotics per primary care physician. 4. thyroid profile and cortisol levels are ok 5. DVT prophylaxis and ulcer prophylaxis. 6. Continue monitor BUN and creatinine. 7. ok to transfer to medical / surgical floor from critical care point of view Coordination of care with primary care physician and bedside consultants. I am remotely monitoring this patient from Tele icu station in [place]. I am unable to do the bedside exam, and history/physical and pertinent information is taken from other notes in the computer and bedside staff. Reviewed with curriculum and assessment coordinator and in MDR Certain portions of this document may have been dictated utilizing voice re cognition technology such as H-art (WPP). Inherent to this technology, typographical and grammatical errors may exist. As much as I am diligent to identify and correct to these mistakes, some errors may remain in the document. Critical care time devoted to this patient today is approximately is- 15 m inutes- Sepsis Event Evaluation Height, Weight, BMI Height: 5'5" Weight: 175lbs. oz. 79.946204wf; 33.85 BMI Method:Stated Focused Exam Lactate Level 05/18/23 11:52: Lactic Acid Level 1.23 Time of Focused Exam: 02:00 Exam Exam Patient acknowledged, consented, and participated in this virtual visit which was conducted using real time audio/video Vital Signs Date Time Temp Pulse Resp B/P (MAP) Pulse Ox O2 Delivery O2 Flow Rate FiO2 05/20/23 11:28 36.5 05/20/23 09:00 78 6 184/108 (133) 95 Room Air 05/20/23 08:00 83 14 93 Room Air 05/20/23 08:00 97 Room Air 05/20/23 07:43 37.3 05/20/23 07:23 80 05/20/23 07:00 89 13 162/98 (119) 94 Room Air 05/20/23 06:00 83 13 168/98 (122) 92 Room Air 05/20/23 05:30 84 12 159/101 (117) Room Air 05/20/23 05:22 82 16 157/96 (117) 05/20/23 05:00 93 25 92 Room Air 05/20/23 04:30 83 11 181/110 (131) 94 Room Air 05/20/23 04:00 36.9 88 14 160/93 (116) 92 Room Air 05/20/23 04:00 97 Room Air 05/20/23 03:30 84 11 162/102 (122) 94 Room Air 05/20/23 03:00 81 13 164/100 (122) Room Air 05/20/23 02:30 90 12 162/104 (128) Room Air 05/20/23 02:00 170/102 (125) Room Air 05/20/23 01:30 92 153/105 (122) Room Air 05/20/23 01:00 82 05/20/23 01:00 84 27 155/99 (122) Room Air 05/20/23 00:30 117 25 92 Room Air 05/20/23 00:13 36.7 10/9/23 00:00 80 162/97 (113) 92 Room Air 05/19/23 23:59 97 Room Air 05/19/23 23:30 96 169/99 (126) 93 Room Air 05/19/23 23:00 93 11 162/99 (124) 92 Room Air 05/19/23 22:30 93 159/91 (115) Room Air 05/19/23 21:30 89 108 152/89 (109) 92 Room Air 05/19/23 21:00 89 42 146/86 (110) Room Air 05/19/23 20:30 30 161/112 (134) Room Air 05/19/23 20:15 36.7 95 8 92 Room Air 05/19/23 20:00 97 Room Air 05/19/23 20:00 100 9 160/96 (117) 90 Room Air 05/19/23 19:45 96 20 Room Air 05/19/23 19:44 98 8 149/95 (118) 91 Room Air 05/19/23 19:43 105 14 165/102 (126) Room Air 05/19/23 19:30 100 21 165/120 (150) Room Air 05/19/23 19:15 98 88 92 Room Air 05/19/23 19:00 94 05/19/23 19:00 91 16 149/91 (124) 95 Room Air 05/19/23 18:00 101 160/94 (118) 95 Room Air 05/19/23 17:00 80 12 95 Room Air 05/19/23 16:00 99 8 05/19/23 16:00 Room Air 05/19/23 16:00 99 8 Room Air 05/19/23 15:00 103 177/101 (126) Room Air 05/19/23 14:00 86 Room Air 05/19/23 13:00 90 137/85 (102) 94 05/19/23 12:28 79 05/19/23 12:00 94 Mechanical Ventilator 30 05/19/23 12:00 70 98/69 (81) 93 Mechanical Ventilator 30.00 05/19/23 12:00 36.2 I & O 05/20/23 07:00 Intake Total 1180 ml Output Total 2390 ml Balance -1210 ml Height & Weight Height: 5'5" Weight: 175lbs. oz. 79.066573dm; 33.85 BMI Method:Stated General Appearance: No Apparent Distress, WD/WN, Chronically ill HEENT: PERRL/EOMI, Other (Pupils appear pinpoint) Neck: Normal Inspection, Supple Respiratory: Lungs Clear, Normal Breath Sounds Cardiovascular: Regular Rate, Rhythm, No Edema, No Murmur Gastrointestinal: normal bowel sounds, non tender, soft Extremity: Normal Capillary Refill, Normal Inspection, No Pedal Edema, Pedal Edema, Swelling Neurologic/Psychiatric: Other (Intubated and under sedation) Skin: Normal Color, Warm/Dry, Other (has wound on clavicle below neck, ) Lymphatic: No Adenopathy Results Lab Laboratory Tests 05/19/23 04:43 05/20/23 05:06 Assessment/Plan Assessment/Plan as above Critical Care: Critically Ill Patient Time spent with patient (mins): 15 PK RIOS MD May 20, 2023 11:48
[2023-05-20] MEDS: PROPRANOLOL EXTENDED RELEASE 80 MG CAPSULE PO SCH (12:25)
--- NOTE | 2023-05-20 15:16 | Progress Note ---
Subjective Subjective/Events-last exam Patient states she wanted to leave yesterday because she was worried about her dog but found out she is being taken care of. She is feeling better, denies concerns, but has no memory of what happened that led to her being found down. I reviewed clinic chart and note that after last hospital stay baclofen had been held, and outpatient she was given a script several days ago for half the previous dose. Focused Exam Lactate Level 05/18/23 11:52: Lactic Acid Level 1.23 Time of Focused Exam: 02:00 Objective Exam Last Set of Vital Signs Vital Signs Date Time Temp Pulse Resp B/P (MAP) Pulse Ox O2 Delivery O2 Flow Rate FiO2 05/20/23 14:00 88 12 145/66 (92) 92 Room Air 05/20/23 12:13 0.00 05/20/23 11:28 36.5 05/19/23 12:00 30 Capillary Refill : I&O Intake and Output 05/20/23 00:00 Intake Total 800 ml Output Total 2240 ml Balance -1440 ml Intake Oral 200 ml IV Total 600 ml Output Urine Total 2225 ml Post Void Residual 15 ml General: Alert, No Acute Distress Lungs: Clear to Auscultation, Normal Air Movement Heart: Regular Rate, No Murmurs Neuro: Normal Speech Psych/Mental Status: Mood NL Results/Procedures Lab Laboratory Tests 05/20/23 05:06: White Blood Count 14.4H, Red Blood Count 3.55L, Hemoglobin 10.8L, Hematocrit 32L , Mean Corpuscular Volume 91, Mean Corpuscular Hemoglobin 30, Mean Corpuscular Hemoglobin Concent 34, Red Cell Distribution Width 12.5, Platelet Count 298, Mean Platelet Volume 9.7, Immature Granulocyte % (Auto) 1, Neutrophils (%) (Auto) 87H, Lymphocytes (%) (Auto) 9L, Monocytes (%) (Auto) 3, Eosinophils (%) (Auto) 1, Basophils (%) (Auto) 0, Neutrophils # (Auto) 12.5H, Lymphocytes # (Auto) 1.2, Monocytes # (Auto) 0.5, Eosinophils # (Auto) 0.1, Basophils # (Auto) 0.0, Immature Granulocyte # (Auto) 0.1, Neutrophils % (Manual) 91, Lymphocytes % (Manual) 7, Monocytes % (Manual) 2, Blood Morphology Comment NORMAL, Sodium Level 136, Potassium Level 3.9, Chloride Level 104, Carbon Dioxide Level 20L, Anion Gap 12, Blood Urea Nitrogen 12, Creatinine 0.96, Estimat Glomerular Filtration Rate 71, BUN/Creatinine Ratio 13, Glucose Level 95, Calcium Level 8.8, Corrected Calcium 9.6, Phosphorus Level 4.3, Magnesium Level 2.1, Total Bilirubin 0.6, Aspartate Amino Transf (AST/SGOT) 20, Alanine Aminotransferase (ALT/SGPT) 9, Alkaline Phosphatase 50, Total Protein 6.6, Albumin 3.0L Microbiology 05/16/23 Gram Stain - Final, Complete 05/16/23 Sputum Culture - Final, Complete Staphylococcus aureus Mixed Bacterial Raeann 05/14/23 Blood Culture - Final, Complete Staphylococcus epidermidis No Susceptibility Performed See Comments 05/14/23 Urine Culture - Final, Complete NO GROWTH Assessment/Plan Assessment/Plan (1) AMS (altered mental status) Status: Acute Assessment & Plan: Unknown cause at this time. Initially required intubation, extubated yesterday and is able to answer questions appropriately and was stable with PT this morning. Suspect possible medication use with recent baclofen prescription. BP elevated today, will resume home propranolol. Has been on florinef outpatient. Seen by Cardiology last admission. Transfer to floor, will need to eval home safety given repeated episodes. Qualifiers: Qualified Codes: R41.82 - Altered mental status, unspecified (2) Ventilator associated pneumonia Status: Acute Assessment & Plan: On admit, concern for sepsis, no clear source. Sputum cultures after admit/intubation with MRSA. Blood cultures growing Staph epidermidis. Patient initially on vancomycin and Unasyn. Taking oral and stalbe, will change to clindamycin based on sensitivities. (3) Anemia Status: Acute Assessment & Plan: Thought to be initially due to dilution secondary to fluids. However OG was noted to be outputting blood. EGD was done which was negative for any active sources of bleeding, notable for gastritis and a 2 cm hiatal hernia. Hemoglobin is continuing to remain stable. Qualifiers: Qualified Codes: D64.9 - Anemia, unspecified (4) Anxiety Status: Chronic Assessment & Plan: On benzodiazepine chronically outpatient, is low dose but with recurrent episodes of AMS and being found down, this may need to be tapered off. (5) Chronic pain Status: Chronic Assessment & Plan: Previously on hydrocodone, was stopped related to her history of overdose and recurrent AMS episodes. Remains on gabapentin. Monitor closely given all the above. (6) DVT prophylaxis Status: Acute Assessment & Plan: Enoxaparin LIDIA OLSON MD May 20, 2023 15:16
--- NOTE | 2023-05-20 15:33 | Occ Therapy Progress Note ---
Therapy Progress Note PER CHART REVIEW AND DISCUSSION W/ PHYSICAL THERAPY PATIENT IS INDEPENDENT PLEASE DISCONTINUE OT ORDER JUAN CARLOS BRDOY OT May 20, 2023 15:33
[2023-05-20 17:33] VITALS: BP 158/77
[2023-05-20] MEDS: CLINDAMYCIN 150 MG CAPSULE PO SCH ×2 (18:05→22:51)
[2023-05-20 18:41] VITALS: BP 158/77
[2023-05-20 19:52] VITALS: BP 131/73
[2023-05-20] MEDS: ENOXAPARIN 40 MG/0.4 ML SYRINGE SC SCH (20:38)
[2023-05-20] MEDS: oxyCODONE IMMEDIATE RELEASE 5 MG TABLET PO PRN (20:42)
[2023-05-20 23:12] VITALS: BP 152/81
[2023-05-21] MEDS: ONDANSETRON 4 MG ORAL DISSOLVE TABLET PO PRN (02:22)
[2023-05-21] MEDS: oxyCODONE IMMEDIATE RELEASE 5 MG TABLET PO PRN ×2 (02:23→08:48)
[2023-05-21] MEDS: LACTATED RINGERS 1,000 ML 1,000 ML IV SCH (02:51)
[2023-05-21 03:28] VITALS: BP 159/87
[2023-05-21] MEDS: CLINDAMYCIN 150 MG CAPSULE PO SCH ×2 (05:16→13:26)
[2023-05-21] MEDS: ACETAMINOPHEN 500 MG TABLET PO SCH ×2 (05:16→15:16)
[2023-05-21 06:02] LABS: BASOPHILS % (AUTO) 0 % (0-10); EOSINOPHILS # (AUTO) 0.4 10^3/uL (0.0-0.3); EOSINOPHILS % (AUTO) 4 % (0-10); HEMATOCRIT 31 % (35-52); HEMOGLOBIN 10.3 g/dL (11.5-16.0); LYMPHOCYTES # (AUTO) 2.1 10^3/uL (1.0-4.0); LYMPHOCYTES % (AUTO) 21 % (12-44); MEAN CORPUSCULAR HEMOGLOBIN 31 pg (25-34); MEAN CORPUSCULAR HGB CONC 33 g/dL (32-36); MEAN CORPUSCULAR VOLUME 92 fL (80-99); MEAN PLATELET VOLUME 9.7 fL (9.0-12.2); MONOCYTES # (AUTO) 0.5 10^3/uL (0.0-1.0); MONOCYTES % (AUTO) 5 % (0-12); NEUTROPHILS % (AUTO) 69 % (42-75); PLATELET COUNT 289 10^3/uL (130-400); WHITE BLOOD COUNT 10.2 10^3/uL (4.3-11.0)
[2023-05-21 06:29] LABS: ALBUMIN 3.1 GM/DL (3.2-4.5); POTASSIUM 3.2 MMOL/L (3.6-5.0)
[2023-05-21 06:30] LABS: CALCIUM 8.7 MG/DL (8.5-10.1)
[2023-05-21 06:32] LABS: TOTAL PROTEIN 6.6 GM/DL (6.4-8.2)
[2023-05-21 06:34] LABS: BILIRUBIN,TOTAL 0.4 MG/DL (0.1-1.0)
[2023-05-21 06:35] LABS: PHOSPHORUS 3.3 MG/DL (2.3-4.7)
[2023-05-21 06:36] LABS: CREATININE SERUM 1.04 MG/DL (0.60-1.30)
[2023-05-21 07:18] VITALS: BP 154/84
[2023-05-21] MEDS ORDERED: POTASSIUM CHLORIDE 20 MEQ TABLET PO ONE (08:30)
[2023-05-21] MEDS: PANTOPRAZOLE 40 MG TABLET PO SCH ×2 (08:48→08:58)
[2023-05-21] MEDS: NICOTINE 21 MG PATCH TD SCH (08:48)
[2023-05-21] MEDS: PROPRANOLOL EXTENDED RELEASE 80 MG CAPSULE PO SCH (08:48)
[2023-05-21] MEDS ORDERED: NICOTINE PATCH REMOVAL TP SCH (08:59)
[2023-05-21] MEDS: MUPIROCIN 2% OINTMENT 22 GM TUBE NSEACH SCH (10:47)
[2023-05-21 11:03] VITALS: BP 162/94
--- NOTE | 2023-05-21 13:16 | D/C HH Face to Face Order ---
D/C Face to Face Orders Instructions for Patient Patient Instructions/FollowUp: Follow up with Dr. Castro within a week. Physician to follow Patient: Matthew Discharge Diet for Home: Regular Diet Patient Problems: Altered mental status, suspect medication overuse Ventilator associated pneumonia- MRSA Chronic pain Anxiety Anemia Patient Data-Allergies,Ht & Wt Patient Allergies: Coded Allergies: No Known Drug Allergies (Unverified , 06/26/14) Height (Feet): 5 Height (Inches): 5 Weight (Pounds): 175 Home Health Need/Face to Face Date of Face to Face: May 21, 2023 Clinical Findings: Generalized weakness and fatigue I have seen Pt [id number]: Yes Discharged To: Home Diagnosis/Conditions: See patient problems Patient is Homebound due to: CognItive deficits Homebound Status Due to the above stated illness, injury or surgical procedure (medical condition or diagnosis) and associated clinical findings, the patient is homebound because of his/her inability to leave home except with aid of a supportive device and/or person AND leaving the home requires a considerable and taxing effort or is medically contraindicated. Pt req the following assistanc: Aid of another person Home Health Nursing Orders Home Health Services Order: Nursing Services Home Health Infusion Therapy Line Start Date: May 14, 2023 Certify Stmt I certify that this patient is under my care and that I, a nurse practitioner or a physician; a kindergarten assistant working with me, had a face to face encounter that - meets the physician face to face encounter requirements with this patient as dated. LIDIA OLSON MD May 21, 2023 13:15
[2023-05-21] MEDS ORDERED: CLIN150C20 PO (13:17)
--- NOTE | 2023-05-21 15:16 | Discharge Summary ---
Discharge Summary Hospital Course Problems/Diagnosis: (1) AMS (altered mental status) Status: Acute Assessment & Plan: Unknown cause on admit Initially required intubation, extubated 05/19 and is alert and oriented x 4 and evaluated by PT and found to have no needs. Suspect possible medication use with recent baclofen prescription, additionally had urine positive for benzo which is prescribed by Psychiatry. Has been on florinef outpatient and this was continued. Seen by Cardiology last admission for similar reason. Qualifiers: Qualified Codes: R41.82 - Altered mental status, unspecified (2) Ventilator associated pneumonia Status: Acute Assessment & Plan: On admit, concern for sepsis, no clear source. Sputum cultures after admit/intubation with MRSA. Blood cultures growing Staph epidermidis. Patient initially on vancomycin and Unasyn. Taking oral and stable, changed to clindamycin based on sensitivities. (3) Anemia Status: Acute Assessment & Plan: Thought to be initially due to dilution secondary to fluids. However OG was noted to be outputting blood. EGD was done which was negative for any active sources of bleeding, notable for gastritis and a 2 cm hiatal hernia. Hemoglobin remained stable. Qualifiers: Qualified Codes: D64.9 - Anemia, unspecified (4) Anxiety Status: Chronic Assessment & Plan: On benzodiazepine chronically outpatient, is low dose but with recurrent episodes of AMS and being found down, this may need to be tapered off. Discussed with primary who is going to connect with Psychiatry. (5) Chronic pain Status: Chronic Assessment & Plan: Previously on hydrocodone, was stopped related to her history of overdose and recurrent AMS episodes. Remains on gabapentin. Monitor closely given all the above. Hospital Course Date of Admission: May 14, 2023 at 21:58 Admission Diagnosis : Family Physician/Provider: Maria Del Carmen/Patrick,[facility] Date of Discharge: 05/21/23 Discharge Diagnosis: See problem list Hospital Course: See problem list Labs and Pending Lab Test: Laboratory Tests 05/21/23 05:55: White Blood Count 10.2, Red Blood Count 3.37L, Hemoglobin 10.3L, Hematocrit 31L, Mean Corpuscular Volume 92, Mean Corpuscular Hemoglobin 31, Mean Corpuscular Hemoglobin Concent 33, Red Cell Distribution Width 12.6, Platelet Count 289, Mean Platelet Volume 9.7, Immature Granulocyte % (Auto) 1, Neutrophils (%) (Auto) 69, Lymphocytes (%) (Auto) 21, Monocytes (%) (Auto) 5, Eosinophils (%) (Auto) 4, Basophils (%) (Auto) 0, Neutrophils # (Auto) 7.0, Lymphocytes # (Auto) 2.1, Monocytes # (Auto) 0.5, Eosinophils # (Auto) 0.4H, Basophils # (Auto) 0.0, Immature Granulocyte # (Auto) 0.1, Sodium Level 138, Potassium Level 3.2L, Chloride Level 105, Carbon Dioxide Level 23, Anion Gap 10, Blood Urea Nitrogen 11, Creatinine 1.04, Estimat Glomerular Filtration Rate 64, BUN/Creatinine Ratio 11, Glucose Level 88, Calcium Level 8.7, Corrected Calcium 9.4, Phosphorus Level 3.3, Magnesium Level 2.0, Total Bilirubin 0.4, Aspartate Amino Transf (AST/SGOT) 20, Alanine Aminotransferase (ALT/SGPT) 10, Alkaline Phosphatase 44, Total Protein 6.6, Albumin 3.1L, Triglycerides Level 313H Microbiology 05/16/23 Gram Stain - Final, Complete 05/16/23 Sputum Culture - Final, Complete Staphylococcus aureus Mixed Bacterial Raeann 05/14/23 Blood Culture - Final, Complete Staphylococcus epidermidis No Susceptibility Performed See Comments 05/14/23 Urine Culture - Final, Complete NO GROWTH Home Meds Active Clindamycin HCl 150 Mg Capsule 300 Mg PO Q6HR 5 Days Reported Aspirin EC (Aspirin) 81 Mg Tablet.dr 81 Mg PO HS Multivitamin 1 Each Tablet 1 Each PO DAILY Atorvastatin Calcium 40 Mg Tablet 40 Mg PO DAILY Quetiapine Fumarate 50 Mg Tablet 50-100 Mg PO HS TAKES 1 TO 2 (50MG) TABS Buspirone HCl 30 Mg Tablet 30 Mg PO BID Fluoxetine HCl 40 Mg Capsule 40 Mg PO DAILY Omeprazole 20 Mg Capsule.dr 20 Mg PO DAILY Fludrocortisone Acetate 0.1 Mg Tab 0.1 Mg PO DAILY Ondansetron Odt (Ondansetron) 4 Mg Tab.rapdis 4 Mg PO TID PRN Propranolol HCl ER (Propranolol HCl) 80 Mg Cap.sa.24h 80 Mg PO DAILY Assessment/Pt DC Instructions Follow up with primary physician within a week of discharge. Discharge Diet: No Restrictions Activity as Tolerated: Yes Discharge Physical Examination Allergies: Coded Allergies: No Known Drug Allergies (Unverified , 06/26/14) General Appearance: No Apparent Distress Respiratory: Lungs Clear, Normal Breath Sounds Cardiovascular: Regular Rate, Rhythm, No Murmur Gastrointestinal: Normal Bowel Sounds, Non Tender, Soft Skin: Warm/Dry Neurologic/Psychiatric: Alert, Oriented x3 LIDIA OLSON MD May 21, 2023 15:16
[2023-05-21 15:24] VITALS: BP 160/100
[2023-05-21 17:14] VITALS: BP 160/100
== END 2023-05-21 17:00 | disposition home health service (06) | DRG 870 ==
LOC: EDUNIT# 19:57 → ER 19:59 → ICU 21:58 → 4TH 05-20 17:05
PROVIDERS: ADMIT Internal Medicine; ATTEND Family Medicine
PROC: 5A1955Z Respiratory Ventilation, Greater than 96 Consecutive Hours (ICD-10-PCS; principal; 2023-05-14)
PROC: 0BH17EZ Insertion of Endotracheal Airway into Trachea, Via Natural or Artificial Opening (ICD-10-PCS; 2023-05-14)
PROC: 02HV33Z Insertion of Infusion Device into Superior Vena Cava, Percutaneous Approach (ICD-10-PCS; 2023-05-14)
PROC: 0DB48ZX Excision of Esophagogastric Junction, Via Natural or Artificial Opening Endoscopic, Diagnostic (ICD-10-PCS; 2023-05-18)
PROC: 0DB78ZX Excision of Stomach, Pylorus, Via Natural or Artificial Opening Endoscopic, Diagnostic (ICD-10-PCS; 2023-05-18)
DX: A41.02 Sepsis due to Methicillin resistant Staphylococcus aureus (principal); G93.41 Metabolic encephalopathy; J96.21 Acute and chronic respiratory failure with hypoxia; J96.22 Acute and chronic respiratory failure with hypercapnia; N17.9 Acute kidney failure, unspecified; K92.2 Gastrointestinal hemorrhage, unspecified; J95.851 Ventilator associated pneumonia; J44.0 Chronic obstructive pulmonary disease with (acute) lower respiratory infection; E86.0 Dehydration; Z11.52 Encounter for screening for COVID-19; D64.9 Anemia, unspecified; K21.00 Gastro-esophageal reflux disease with esophagitis, without bleeding; K29.70 Gastritis, unspecified, without bleeding; E66.01 Morbid (severe) obesity due to excess calories; Z68.32 Body mass index [BMI] 32.0-32.9, adult; F17.210 Nicotine dependence, cigarettes, uncomplicated; K21.9 Gastro-esophageal reflux disease without esophagitis; H91.93 Unspecified hearing loss, bilateral; Z97.4 Presence of external hearing-aid; F41.9 Anxiety disorder, unspecified; F32.A Depression, unspecified; E78.5 Hyperlipidemia, unspecified; Z79.82 Long term (current) use of aspirin; Z79.891 Long term (current) use of opiate analgesic; Z79.899 Other long term (current) drug therapy
CPT/HCPCS: 31500; 36415; 36556; 36600; 51702; 70450; 71045; 74176; 80053; 80202; 80306; 80320; 80329; 81000; 82533; 82550; 82805; 82947; 83605; 83735; 84100; 84439; 84443; 84478; 84484; 85007; 85025; 85027; 85610; 85730; 87040; 87070; 87077; 87081; 87088; 87186; 87205; 87636; 93005; 94002; 94003; 94799